=== PATIENT | male | born 1950 | race African-American/Black ===

== ENCOUNTER 2016-04-17 22:11 | Inpatient (IN) ==
[2016-04-17 23:10] LABS: Basophils # 0.1 K/mcL (0.0-0.2); Basophils % 0.7 %; Eosinophils # 0.4 K/mcL (0.0-0.6); Eosinophils % 5.7 %; Hematocrit 35.9 % (37.5-50.1); Hemoglobin 11.6 g/dL (12.9-16.9); Immature Granulocytes % 0.1 % (0-4); Immature Platelets 5.6 % (1.1-6.1); Lymphocytes # 1.3 K/mcL (0.6-4.6); Lymphocytes % 18.2 %; Mean Corpuscular HGB Conc 32.3 g/dL (31.6-35.5); Mean Corpuscular Hemoglobin 30.9 pg (28.0-33.3); Mean Corpuscular Volume 95.7 fL (83.0-100.0); Mean Platelet Volume 10.4 fL (9.4-12.4); Monocytes # 0.8 K/mcL (0.0-1.3); Monocytes % 11.2 %; Neutrophils # 4.5 K/mcL (1.6-8.9); Platelet Count 205 K/mcL (140-400); Red Blood Count 3.75 M/mcL (4.19-5.50); Red Cell Distribution Width 13.7 % (11.5-14.5); Segmented Neutrophils % 64.1 %
[2016-04-17 23:22] LABS: Calcium 7.7 mg/dL (8.6-10.8); Potassium 3.4 mEq/L (3.5-4.5)
--- NOTE | 2016-04-18 00:28 | Emergency Department Note ---
Disposition Clinical Impression: Dyspnea on exertion, End-stage renal disease, Elevated troponin I measurement Disposition: Admitted As Inpatient Condition: Fair Referrals: NO,PCP [Primary Care Provider] - Forms: ED Satisfaction Letter SOB HPI - General Chief Complaint: ED Shortness of Breath/Dyspnea Stated Complaint: NHAN w/exertion/hx afib/HD Time Seen by Provider: 04/17/16 23:15 Source: patient, EMS Limitations: no limitations Nursing Notes Reviewed: Yes Vital Signs Reviewed: Yes - History of Present Illness Pt Subjective Complaint: shortness of breath (with walking) Onset (ago): day(s) ("All weekend") Context: occurred during exertion ("just walking to the bathroom") Severity: moderate Consistency/Duration: intermittent Improves with: rest Worsens with: exertion Known history of: other (renal failure, CAD) Associated symptoms: Denies: chest pain, pain with inspiration, fever, cough, wheezing, sputum production, orthopnea, lower extremity pain, polyuria, polydipsia, parasthesias, palpitations, hemoptysis, diaphoresis, nausea/vomiting , syncope, abdominal pain, rash, sense of impending doom Treatment prior to arrival: none Cough present: Yes Cough Description: Voluntary, Dry Cough Frequency: Intermittent Sputum production: No Sputum Amount: None - Related Data Home oxygen amount: none Home Medications Medication Instructions Recorded Confirmed Allopurinol [Zyloprim] 100 mg PO DAILY 12/21/14 09/30/15 Atorvastatin [Lipitor] 10 mg PO HS 12/21/14 09/30/15 Chlorhexidine Gluconate [Peridex] 30 ml MM BID 12/21/14 09/30/15 Cinacalcet [Sensipar] 60 mg PO DAILY 12/21/14 09/30/15 Clopidogrel Bisulfate [Plavix] 75 mg PO DAILY 12/21/14 09/30/15 Escitalopram [Lexapro] 10 mg PO DAILY 12/21/14 09/30/15 Lisinopril [Zestril] 10 mg PO DAILY 12/21/14 09/30/15 Metoprolol XL (24 HR) Succ [Toprol 100 mg PO DAILY 12/21/14 09/30/15 XL] Nitroglycerin 0.4 mg SL AD PRN 12/21/14 09/30/15 Sevelamer [Renvela] 800 mg PO TIDWM 12/21/14 09/30/15 Sucralfate [Carafate] 10 ml PO BID 12/21/14 09/30/15 TraZODone 100 mg PO HS 12/21/14 09/30/15 Aspirin 325 mg PO DAILY 06/23/15 09/30/15 Previous Rx's Medication Instructions Recorded Gabapentin [Neurontin] 300 mg PO BID #60 capsule 06/25/15 HYDROcodone/Acet 5/325 mg [[place] 1 - 2 tab PO Q4HR PRN #40 tablet 06/25/15 5-325 mg] Pantoprazole Sodium [Protonix] 40 mg PO DAILY #0 06/25/15 Isosorbide MONOnitrate (24 HR) 30 mg PO DAILY #30 tab.er.24h 10/02/15 [Imdur] Allergies Allergy/AdvReac Type Severity Reaction Status Date / Time No Known Allergies Allergy Verified 04/17/16 22:16 All systems ED: reviewed and negative except as stated. Constitutional: Denies: fever, chills, weakness Cardiovascular: Reports: as per HPI, dyspnea on exertion. Denies: chest pain, palpitations, orthopnea, edema, syncope, paroxysmal nocturnal dyspnea Respiratory: Denies: cough, dyspnea, wheezes, hemoptysis, stridor, sputum production Gastrointestinal: Denies: nausea, vomiting, diarrhea Musculoskeletal: Denies: back pain, neck pain, joint swelling Integumentary: Denies: rash Neurological: Denies: headache, weakness, confusion Hematological/Lymphatic: Denies: easy bleeding, easy bruising Past Medical History - Past Medical History Attestation: Yes The following information was validated with the patient. Source: patient Medical history: Reports: arthritis, atrial fibrillation, cancer, cardiomyopathy , coronary artery disease, diabetes, dialysis, GERD, hyperlipidemia, hypertension, kidney stones, malignancy, myocardial infarction, renal disease, other Surgical history: Reports: angioplasty/stent, appendectomy, herniorrhaphy, prostatectomy Psychiatric history: Reports: no psych history - Social History Smoking Status: Never smoker Smokeless Tobacco Status: No Alcohol use: Reports: none Drug use: Reports: none Physical Exam - General Limitations: no limitations General appearance: alert, in no apparent distress - Head Head exam: atraumatic, normocephalic, normal inspection - Eye Eye exam: Present: normal appearance, PERRL. Absent: scleral icterus, conjunctival injection, periorbital swelling - ENT ENT exam: mucous membranes moist - Neck Neck exam: Present: normal inspection, full ROM, trachea midline - Chest Chest inspection: Present: normal inspection, symmetric chest wall rise - Respiratory Respiratory exam: Present: normal lung sounds bilaterally. Absent: respiratory distress, wheezes, stridor, accessory muscle use, prolonged expiratory phase - Cardiovascular Cardiovascular exam: Present: regular rate, normal rhythm - Extremities Exam Extremities exam: Present: normal inspection, full ROM, normal capillary refill. Absent: tenderness, pedal edema, calf tenderness - Back Exam Back exam: Present: normal inspection - Neurological Exam Neurological exam: Present: alert, oriented X3, CN II-XII intact - Psychiatric Psychiatric exam: Present: normal affect, normal mood - Skin Skin exam: Present: warm, dry, intact, normal color Course Vital Signs Temperature 98.1 F 04/17/16 22:16 Pulse Rate 78 04/17/16 22:16 Respiratory Rate 20 04/17/16 22:16 Blood Pressure 136/84 04/17/16 22:16 O2 Sat by Pulse Oximetry 100 04/17/16 22:16 Temperature 98.1 F 04/17/16 22:16 Pulse Rate 82 04/18/16 01:02 Respiratory Rate 18 04/18/16 01:02 Blood Pressure 135/96 04/18/16 01:02 O2 Sat by Pulse Oximetry 99 04/18/16 01:02 Oxygen Delivery Oxygen Delivery Nasal Cannula Shortness of Breath/Dyspnea - Medical Records Medical records reviewed: Yes I reviewed the patient's medical records. - Lab Data Lab results reviewed: Yes I reviewed the patient's lab results. Result diagrams: 04/17/16 23:04 04/17/16 23:04 Lab Results 04/17/16 04/17/16 04/17/16 Range/Units 23:04 23:04 23:04 WBC 7.0 (4.3-11.1) K/mcL RBC 3.75 L (4.19-5.50) M/mcL Hgb 11.6 L (12.9-16.9) g/dL Hct 35.9 L (37.5-50.1) % MCV 95.7 (83.0-100.0) fL MCH 30.9 (28.0-33.3) pg MCHC 32.3 (31.6-35.5) g/dL RDW 13.7 (11.5-14.5) % Plt Count 205 (140-400) K/mcL MPV 10.4 (9.4-12.4) fL Immature Gran % 0.1 (0-4) % Seg Neutrophils % 64.1 % Lymphocytes % 18.2 % Monocytes % 11.2 % Eosinophils % 5.7 % Basophils % 0.7 % Neutrophils # 4.5 (1.6-8.9) K/mcL Lymphocytes # 1.3 (0.6-4.6) K/mcL Monocytes # 0.8 (0.0-1.3) K/mcL Eosinophils # 0.4 (0.0-0.6) K/mcL Basophils # 0.1 (0.0-0.2) K/mcL Immature Plt Fraction 5.6 (1.1-6.1) % Sodium 140 (136-145) mEq/L Potassium 3.4 L (3.5-4.5) mEq/L Chloride 96 L (98-109) mEq/L Carbon Dioxide 30 H (19-29) mEq/L BUN 15 (8-26) mg/dL Creatinine 6.39 H (0.72-1.25) mg/dL Est GFR ( Amer) 11 L (> 60) Est GFR (Non-Af Amer) 9 L (> 60) BUN/Creatinine Ratio 2 L (6-26) Glucose 99 (70-99) mg/dL Calculated Osmolality 291 (280-300) Calcium 7.7 L (8.6-10.8) mg/dL Troponin I 0.22 H* (0-0.03) ng/mL B-Natriuretic Peptide (0-100) pg/mL 04/17/16 Range/Units 23:04 WBC (4.3-11.1) K/mcL RBC (4.19-5.50) M/mcL Hgb (12.9-16.9) g/dL Hct (37.5-50.1) % MCV (83.0-100.0) fL MCH (28.0-33.3) pg MCHC (31.6-35.5) g/dL RDW (11.5-14.5) % Plt Count (140-400) K/mcL MPV (9.4-12.4) fL Immature Gran % (0-4) % Seg Neutrophils % % Lymphocytes % % Monocytes % % Eosinophils % % Basophils % % Neutrophils # (1.6-8.9) K/mcL Lymphocytes # (0.6-4.6) K/mcL Monocytes # (0.0-1.3) K/mcL Eosinophils # (0.0-0.6) K/mcL Basophils # (0.0-0.2) K/mcL Immature Plt Fraction (1.1-6.1) % Sodium (136-145) mEq/L Potassium (3.5-4.5) mEq/L Chloride (98-109) mEq/L Carbon Dioxide (19-29) mEq/L BUN (8-26) mg/dL Creatinine (0.72-1.25) mg/dL Est GFR ( Amer) (> 60) Est GFR (Non-Af Amer) (> 60) BUN/Creatinine Ratio (6-26) Glucose (70-99) mg/dL Calculated Osmolality (280-300) Calcium (8.6-10.8) mg/dL Troponin I (0-0.03) ng/mL B-Natriuretic Peptide > 5000 H (0-100) pg/mL - Radiology Data Radiology results reviewed: Yes I reviewed the patient's radiology results. Chest X-Ray 04/17/16 22:20 IMPRESSION: Cardiomegaly and mild pulmonary vascular congestion, stable. D/ / Magdy Mcmahan MD / Magdy Mcmahan MD Interpreting Provider: Magdy Mcmahan MD - EKG Data EKG attestation: Yes I reviewed and interpreted this EKG. EKG shows normal: Reports: sinus rhythm Rate: Reports: normal Rhythm: Reports: PAC's Interpretation: Reports: unchanged when compared to prior tracing (date), nonspecific ST-T wave changes
[2016-04-18] MEDS ORDERED: Furosemide 40 MG/4 ML VIAL IVP ONE (03:13)
--- NOTE | 2016-04-18 04:09 | Event Note ---
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 Patient presents with Kishore on exertion. Patient is usually able to go shopping however for the past few days is been walking only 2 to 3 steps because of limiting shortness of breath. Patient is compliant with his dialysis. He dialyzed today. He does not know his dry weights. Patient with element of slight clinical overload. Patient mentioned that he still makes a little urine. I will give him a dose of IV Lasix. May need to decrease his dry weight. Patient denies any cough expectoration fevers chills. Patient denies any chest pain. Patient is having frequent PACs and PVCs. However he maintains sinus rhythm so far. Continue aspirin beta ramon. One dose of Lasix intravenously 40 mg. Patient is comfortable speaking in full sentences not requiring any oxygen. Patient of the recent halter monitor showing reruns of non-sustained VTach as well as sustained VTach. Ask cardiology surface for input given frequent atrial and ventricular arrhythmias. Patient is having elevated troponin. However is denying any active chest pain. Cardiology consultation.
--- NOTE | 2016-04-18 04:15 | Internal Med History&Physical ---
<Ayana,Lauren Mary - Last Filed: 04/18/16 05:10> Date of Encounter: 04/18/16 Time of Encounter: 04:04 Assessment and Plan (1) Dyspnea Current visit: No Status: Resolved likely secondary to fluid overload from ESRD CXR shows cardiac enlargement and pulmonary vascular congestion will give lasix challenge with 40 BID and monitor UOP PO K Qualifiers: Dyspnea type: dyspnea on exertion Qualified Code(s): R06.09 - Other forms of dyspnea (2) Hypokalemia Current visit: Yes Status: Acute PO K recheck K (3) Hypochloremia Current visit: Yes Status: Acute PO KCL recheck (4) Elevated troponin I measurement Current visit: Yes Status: Chronic Troponin at .22 chronically elevated likely secondary to ESRD will continue to trend (5) End-stage renal disease Current visit: Yes Status: Chronic on dialysis M/W/F well compliant lasix q12h and monitor UOP electrolyte replacement consider nephro consult (6) HTN (hypertension) Current visit: No Status: Chronic Qualifiers: Hypertension type: essential hypertension Qualified Code(s): I10 - Essential (primary) hypertension (7) Afib Current visit: Yes Status: Acute cardiac monitoring Qualifiers: Atrial fibrillation type: paroxysmal Qualified Code(s): I48.0 - Paroxysmal atrial fibrillation (8) CHF (congestive heart failure) Current visit: No Status: Chronic troponin .22 BNP>5000 consider cardiac consult Qualifiers: Congestive heart failure type: systolic Congestive heart failure chronicity : chronic Qualified Code(s): I50.22 - Chronic systolic (congestive) heart failure Internal Medicine - H&P: HPI Chief complaint: dyspnea Admitted From: Emergency Dept Plans for Post Hospital Care: Home History of present illness: Mr. Manzano is a 65 year old male c/o dyspnea. Pt with PMHx ESRD on dialysis M/W/F , CHF, afib, CAD, DM HTN Pt states shortness of breath started three days ago, made worse with exertion improved with rest and is accompanied by a dry nonproductive cough Pt states that he can only walk a few steps and then starts getting short of breath and needs to sit down. He states this is new for him and has progressively gotten worse over the past three days. Pt denies headache, change in vision, heart palpitation, CP, Abd pain, N/V/D Past Med Surg Social Fam HX - Past Medical History Medical history: arthritis, atrial fibrillation, cancer, cardiomyopathy, coronary artery disease, diabetes, dialysis, GERD, hyperlipidemia, hypertension , kidney stones, malignancy, myocardial infarction, renal disease, other Psychiatric history: no psych history - Past Surgical History Surgical History: angioplasty/stent, appendectomy, herniorrhaphy, prostatectomy - Social History Smoking Status: Never smoker Smokeless Tobacco Status: No Alcohol use: none Drug use: none - Family History Mother History Unknown: Yes Adopted: No Family Member Ethnicity: Non- Living Status: Hx Family Cardiac Disorders: No Hx Family Respiratory Disorders: No Hx Family Cancer: No Hx Family GI Disorders: No Hx Family Endocrine Disorder: No Hx Family Neuromuscular Disorders: No Hx Family Neurologic Disorders: No Hx Family HEENT Disorders: No Hx Family Autoimmune Disorders: No Internal Medicine - H&P: Meds Allopurinol [Zyloprim] 100 mg PO DAILY 12/21/14 [History] Atorvastatin [Lipitor] 10 mg PO HS 12/21/14 [History] Chlorhexidine Gluconate [Peridex] 30 ml MM BID 12/21/14 [History] Cinacalcet [Sensipar] 60 mg PO DAILY 12/21/14 [History] Clopidogrel Bisulfate [Plavix] 75 mg PO DAILY 12/21/14 [History] Escitalopram [Lexapro] 10 mg PO DAILY 12/21/14 [History] Lisinopril [Zestril] 10 mg PO DAILY 12/21/14 [History] Metoprolol XL (24 HR) Succ [Toprol XL] 100 mg PO DAILY 12/21/14 [History] Nitroglycerin 0.4 mg SL AD PRN 12/21/14 [History] Sevelamer [Renvela] 800 mg PO TIDWM 12/21/14 [History] Sucralfate [Carafate] 10 ml PO BID 12/21/14 [History] TraZODone 100 mg PO HS 12/21/14 [History] Aspirin 325 mg PO DAILY 06/23/15 [History] Gabapentin [Neurontin] 300 mg PO BID #60 capsule 06/25/15 [Rx] HYDROcodone/Acet 5/325 mg [[place] 5-325 mg] 1 - 2 tab PO Q4HR PRN #40 tablet [Rx] Pantoprazole Sodium [Protonix] 40 mg PO DAILY #0 06/25/15 [Rx] Isosorbide MONOnitrate (24 HR) [Imdur] 30 mg PO DAILY #30 tab.er.24h 10/02/15 [ Rx] Allergies No Known Allergies Allergy (Verified 04/17/16 22:16) All Systems PM: A 10-system review of systems was performed and is negative for pertinent findings except as documented above in the HPI. - Constitutional Constitutional: no chills, no fever(s), no night sweats - EENT Eyes: no blurry vision, no change in vision, no pain, no photophobia Ears: no decreased hearing, no tinnitus - Cardiovascular Cardiovascular ROS IM: dyspnea on exertion, edema, no chest pain, no diaphoresis , no lightheadedness, no palpitations - Respiratory Respiratory: cough, no hemoptysis, no wheezing, no excessive phlegm production - Gastrointestinal Gastrointestinal: no abdominal pain, no nausea, no vomiting - Musculoskeletal Musculoskeletal ROS IM: no numbness, no tingling - Neurological Neurological ROS: no dizziness, no headache(s), no tingling - Constitutional Vitals: Temp Pulse Resp BP Pulse Ox 98.4 F 100 18 148/94 96 04/18/16 02:55 04/18/16 02:55 04/18/16 02:55 04/18/16 02:55 04/18/16 02:55 General appearance: Present: A&O X 3, no acute distress - Head Head exam: Present: atraumatic, normocephalic - Eye Eye exam: Present: EOMI - ENT ENT exam: Present: mucous membranes moist - Neck Neck exam general surgery: Present: full ROM, trachea midline - Respiratory Respiratory exam: Present: decreased breath sounds (b/l bases) - Cardiovascular Cardiovascular exam: Present: irregular rhythm - GI/Abdominal GI/Abdominal exam: Present: normal bowel sounds, soft, no peritoneal signs - Extremities Exam Extremities exam: Present: pedal edema (B/L LE 2+ pitting edema), warm - Incison Incision: Present: clean and dry (L forearm fistula with good thrill), intact - Neurological Exam Neurological exam: Present: CN II-XII intact, oriented X3, no focal deficits - Psychiatric Psychiatric exam: Present: normal affect, normal mood Internal Med - H&P Results - Labs CBC & Chem 7: 04/17/16 23:04 04/17/16 23:04 <Juan R Perez R - Last Filed: 04/18/16 06:02> Date of Encounter: 04/18/16 Assessment and Plan (1) Elevated troponin I measurement Current visit: Yes Status: Chronic (2) End-stage renal disease Current visit: Yes Status: Chronic Internal Medicine - H&P: HPI History of present illness: Mr. Manzano is a 65 year old male All Systems PM: A 10-system review of systems was performed and is negative for pertinent findings except as documented above in the HPI. - Constitutional Vitals: Temp Pulse Resp BP Pulse Ox 98.4 F 100 18 148/94 96 04/18/16 02:55 04/18/16 02:55 04/18/16 02:55 04/18/16 02:55 04/18/16 02:55 Internal Med - H&P Results - Labs CBC & Chem 7: 04/17/16 23:04 04/17/16 23:04
[2016-04-18] MEDS ORDERED: Furosemide 40 MG/4 ML VIAL IVP SCH ×2 (09:00→17:00)
--- NOTE | 2016-04-18 10:08 | Event Note ---
<Debora Broussard - Last Filed: 04/18/16 16:09> Date of Encounter: 04/18/16 Time of Encounter: 09:56 S: Patient seen and examined at bedside. He states that he is fatigued, but that his SOB has improved. Denies F/C, CHAVES, dizziness, cp, abdominal pain, N/V/D. 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 He is a patient of Dr. Medeiros and has dialysis M/W/F. He had dialysis yesterday. He states he still makes urine, approximately 3 times daily. States no UOP as of 1130. Patient requesting rehab placement at [facility]. O: WD/WN 65 y/o male who is alert and oriented in NAD. NC/AT, RRR w/o MRG, pulses 2+ b/l UE/LE, Lungs CTAB, abdomen soft, non-tender, no distention, normoactive bowel sounds, no edema. A/P: 1. ESRD: Patient has ESRD with M/W/F dialysis with Dr. Medeiros. Had dialysis yesterday Plan: -Consult to nephrology, Dr. Medeiros notified and will see tomorrow for HD. 2. Dyspnea Patient presented with dyspnea after HD. Pulmonary congestion on XR. Patient given IV lasix, SOB improved today. Had holter monitor in February, Dr. Vincent increased toprol. 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 It is possible that the dyspnea is secondary to a pulmonary process such as COPD, Pulmonary fibrosis, etc. May be cardiac vs renal in nature as well. Patient was referred to pulm in the past, but missed his appointment. Will refer again and discharge and patient would benefit from outpatient PFTs. Holter Monitor Impression: 1.) Sinus rhythm with intermittent ectopic atrial rhythm. Average heart rate was 76 bpm. 2.) Frequent PVCs (340 per hour, 7.5% of total heart beats). 3.) Frequent runs of non-sustained ventricular tachycardia. There were a total of 48 runs of NSVT. The longest run was 16 beats. 4.) Occasional PACs. 5.) Frequent runs of SVT consistent with atrial tachycardia. There were a total of 22 runs of atrial tachycardia. The longest run was 15 beats. 6.) There was 1 short pause (2 seconds long) noted with a single non- conducted p-wave. This occurred at 00:17am, likely while sleeping. 7.) Diary of symptoms was not returned. Plan: -CT chest w/o contrast today -Carol -Will get pre and post neb peak flow readings. -Continue lasix and montor I/Os, daily weights 3. Hypokalemia May be secondary to ESRD, post dialysis. Was given oral K replacement Plan: -Will repeat BMP today and in the AM <Tashi Curran - Last Filed: 04/18/16 17:09> Mr. Manzano was admitted earlier this AM with dyspnea. He has multiple prior admissions for similar complaints. Plan as outlined above. He is resting comfortably at this time.
[2016-04-18] MEDS ORDERED: *HR* HYDROcodone/Acet 5/325 mg TABLET PO PRN (12:11)
[2016-04-18] MEDS ORDERED: Nitroglycerin 0.4 MG TAB.SUBL SL PRN (12:11)
[2016-04-18] MEDS: Aspirin 325 MG TABLET PO SCH (12:51)
[2016-04-18] MEDS: Isosorbide MONOnitrate (24 HR) 30 MG TAB.ER.24H PO SCH (12:51)
[2016-04-18] MEDS: Metoprolol XL (24 HR) Succ 50 MG TAB.ER.24H PO SCH (12:51)
--- NOTE | 2016-04-18 15:51 | Electrocardiograph Report ---
[place] [id number] Test Date: 2016-04-17 Pat Name: Dexter Manzano Department: [id number] Room: 2A34 Gender: M Policy Service Coordinator: : 1950 Requested By: Hilario Torres Order Number: [id number] Reading MD: Scarlet Mejias Measurements Intervals [place] Rate: 87 P: CT: 0 QRS: -8 QRSD: 90 T: 107 QT: 438 QTc: 482 Interpretive Statements ATRIAL FIBRILLATION WITH ABERRANT CONDUCTION OR VENTRICULAR PREMATURE COMPLEXES NONSPECIFIC T-WAVE ABNORMALITY PROLONGED QT INTERVAL Electronically Signed On 04-18-2016 15:50:09 EDT by Scarlet Mejias
[2016-04-18] MEDS: Ipratropium/Albuterol Neb 3 ML IH SCH ×2 (16:21→20:38)
[2016-04-18] MEDS: Sucralfate 1 GM TABLET PO SCH (16:58)
[2016-04-18] MEDS: *HR* Heparin 5,000 UNIT/ML VIAL SQ SCH ×2 (16:58→21:25)
[2016-04-18 18:00] LABS: Calcium 7.3 mg/dL (8.6-10.8); Potassium 3.9 mEq/L (3.5-4.5)
[2016-04-18] MEDS ORDERED: Gabapentin 300 MG CAPSULE PO SCH (21:00)
[2016-04-18] MEDS ORDERED: traZODone 50 MG TABLET PO SCH (21:00)
[2016-04-18] MEDS: Chlorhexidine Rinse 15 ML MOUTHWASH MM SCH (21:21)
[2016-04-18] MEDS: Gabapentin 300 MG CAPSULE PO SCH (21:25)
[2016-04-19] MEDS: Ipratropium/Albuterol Neb 3 ML IH SCH ×5 (00:28→15:41)
[2016-04-19 06:51] LABS: Basophils # 0.1 K/mcL (0.0-0.2); Basophils % 0.8 %; Eosinophils # 0.4 K/mcL (0.0-0.6); Eosinophils % 6.8 %; Hematocrit 32.6 % (37.5-50.1); Hemoglobin 10.5 g/dL (12.9-16.9); Immature Granulocytes % 0.3 % (0-4); Lymphocytes # 1.5 K/mcL (0.6-4.6); Lymphocytes % 25.2 %; Mean Corpuscular HGB Conc 32.2 g/dL (31.6-35.5); Mean Corpuscular Hemoglobin 31.7 pg (28.0-33.3); Mean Corpuscular Volume 98.5 fL (83.0-100.0); Mean Platelet Volume 10.8 fL (9.4-12.4); Monocytes # 0.7 K/mcL (0.0-1.3); Monocytes % 11.7 %; Neutrophils # 3.3 K/mcL (1.6-8.9); Platelet Count 173 K/mcL (140-400); Red Blood Count 3.31 M/mcL (4.19-5.50); Red Cell Distribution Width 13.8 % (11.5-14.5); Segmented Neutrophils % 55.2 %
[2016-04-19 07:07] LABS: Calcium 6.7 mg/dL (8.6-10.8); Potassium 3.9 mEq/L (3.5-4.5)
[2016-04-19] MEDS: Sucralfate 1 GM TABLET PO SCH (08:42)
[2016-04-19] MEDS: Gabapentin 300 MG CAPSULE PO SCH (08:43)
[2016-04-19] MEDS: *HR* Heparin 5,000 UNIT/ML VIAL SQ SCH (08:48)
[2016-04-19] MEDS: Chlorhexidine Rinse 15 ML MOUTHWASH MM SCH (09:09)
[2016-04-19] MEDS ORDERED: 0.9 % Sodium Chloride 250 ML IV PRN (09:49)
[2016-04-19] MEDS ORDERED: 0.9 % Sodium Chloride 1,000 ML PRIME SCH (10:00)
[2016-04-19] MEDS ORDERED: 0.9 % Sodium Chloride 2,000 ML ONE (10:06)
--- NOTE | 2016-04-19 10:09 | Internal Med Progress Note ---
<Debora Broussard - Last Filed: 04/19/16 10:23> Date of Encounter: 04/19/16 Time of Encounter: 10:06 - Assessment and plan (1) Pulmonary edema Status: Acute Assessment and plan: Patient presented with dyspnea after HD. Pulmonary congestion on XR. Patient given IV lasix, SOB improved. Had holter monitor in February, Dr. Vincent increased toprol to 100mg daily at that time. 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 Chest CT shows no pulmonary fibrosis. Patient was referred to pulm in the past, but missed his appointment. Will refer again and discharge and patient would benefit from outpatient PFTs. Plan: -Continue duonebs, as he states that they are improving his breathing. -Continue to monitor I/Os, daily weights -Discontinue lasix. Qualifiers: Chronicity: acute Qualified Code(s): J81.0 - Acute pulmonary edema (2) ESRD (end stage renal disease) on dialysis Status: Acute Assessment and plan: Patient has ESRD with M/W/F dialysis with Dr. Medeiros. Plan: -Consult to nephrology, Dr. Medeiros notified -Patient will have HD today. (3) CAD (coronary artery disease) Status: Chronic Qualifiers: Coronary Disease-Associated Artery/Lesion type: [place] artery [place] vs. transplanted heart: [place] heart Associated angina: with unstable angina Qualified Code(s): I25.110 - Atherosclerotic heart disease of [place] coronary artery with unstable angina pectoris (4) HTN (hypertension) Status: Chronic Assessment and plan: continue home meds Qualifiers: Hypertension type: essential hypertension Qualified Code(s): I10 - Essential (primary) hypertension (5) Hypokalemia Status: Resolved Assessment and plan: Patient is a dialysis patient. Was given oral K on admission, potassium improved to 3.9 today. Patient gets dialysis today. (6) PAF (paroxysmal atrial fibrillation) Status: Chronic (7) DVT prophylaxis Status: Acute Assessment and plan: Heparin SQ - Subjective Interval history: Patient seen and examined at bedside. His SOB has improved. He states he had an episode of diarrhea/loose stool yesterday and feels better after. Denies F/C, CHAVES, dizziness, cp, abdominal pain, N/V/D. 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 He is a patient of Dr. Medeiros and has dialysis M/W/F. He will have dialysis today Patient requesting rehab placement at [facility]. - Constitutional Vitals: Temp Pulse Resp BP Pulse Ox 97.8 F 65 16 136/84 96 04/19/16 08:00 04/19/16 08:00 04/19/16 08:00 04/19/16 08:00 04/19/16 08:00 General appearance: Present: A&O X 3, pleasant, no acute distress, answers questions appropriately - Head Head exam: Present: atraumatic, normocephalic - Eye Eye exam: Present: EOMI, PERRL, conjuntiva pink, sclera anicteric - ENT ENT exam: Present: mucous membranes dry - Neck Neck exam general surgery: Present: supple, trachea midline. Absent: lymphadenopathy - Respiratory Respiratory exam: Present: CTAB. Absent: accessory muscle use, rales, rhonchi, wheezes - Cardiovascular Cardiovascular exam: Present: RRR, +S1, +S2. Absent: diastolic murmur, gallop, rubs, systolic murmur - GI/Abdominal GI/Abdominal exam: Present: normal bowel sounds, soft, no peritoneal signs. Absent: distended, tenderness - Extremities Exam Extremities exam: Present: pedal edema (trace L>R), warm, radial pulses palpable and symetrical. Absent: calf tenderness, cyanotic - Neurological Exam Neurological exam: Present: alert, oriented X3, no focal deficits. Absent: motor sensory deficit, facial droop, speech deficit - Psychiatric Psychiatric exam: Present: normal affect, normal mood - Skin Skin exam: Present: dry, intact, warm. Absent: diaphoretic, rash Internal Medicine: Result - Labs CBC & Chem 7: 04/19/16 06:31 04/19/16 06:31 - Diagnostic Studies CT scan - chest Additional comments: Chest CT 04/18/16 15:38 IMPRESSION: Cardiomegaly. Heavy atherosclerotic calcification of the coronary arteries. Discoid atelectasis at the left lung base. No acute pulmonary disease. Mildly prominent mediastinal lymph nodes, likely reactive. D/ / Jame Beltran MD / Jame Beltran MD Interpreting Provider: Jame Beltran MD Consult Discharge Plan - Plan Instructions: Hemodialysis (GEN), End-Stage Kidney Disease (GEN) Additional Instructions: Please follow up with your primary care provider within 5-7 days. Referrals: Dylon Medeiros, [Non-Partnered Physician] - (Patient will follow up with doctor during HD days on Mondays, Wednesdays and Fridays) <Tashi Curran - Last Filed: 04/19/16 18:22> - Assessment and plan (1) Pulmonary edema Status: Acute Qualifiers: Chronicity: acute Qualified Code(s): J81.0 - Acute pulmonary edema (2) CAD (coronary artery disease) Status: Chronic Qualifiers: Coronary Disease-Associated Artery/Lesion type: [place] artery [place] vs. transplanted heart: [place] heart Associated angina: without angina Qualified Code(s): I25.10 - Atherosclerotic heart disease of [place] coronary artery without angina pectoris (3) HTN (hypertension) Status: Chronic Qualifiers: Hypertension type: essential hypertension Qualified Code(s): I10 - Essential (primary) hypertension (4) Diabetes mellitus Status: Acute Qualifiers: Diabetes mellitus type: type 2 Diabetes mellitus complication status: with kidney complications Diabetes mellitus complication detail: with chronic kidney disease Diabetes mellitus joint terminal attack controller insulin use: without skilled nursing use Chronic kidney disease stage: on chronic dialysis Qualified Code(s): E11.22 - Type 2 diabetes mellitus with diabetic chronic kidney disease; N18.6 - End stage renal disease; Z99.2 - Dependence on renal dialysis (5) ESRD (end stage renal disease) on dialysis Status: Chronic (6) Hypokalemia Status: Resolved (7) PAF (paroxysmal atrial fibrillation) Status: Chronic - Constitutional Vitals: Temp Pulse Resp BP Pulse Ox 97.5 F L 65 18 103/68 100 04/19/16 13:27 04/19/16 08:00 04/19/16 15:41 04/19/16 13:27 04/19/16 15:41 Internal Medicine: Result - Labs CBC & Chem 7: 04/19/16 06:31 04/19/16 06:31 - Attending Attestation Please see discharge summary of this date for attestation.
--- NOTE | 2016-04-19 10:30 | Nephrology Consult Note ---
Date of Encounter: 04/19/16 Time of Encounter: 09:50 History of Present Illness - Reason for Consult end stage renal disease - History of Present Illness A/P- ESRD. Fluid overload improved with IV Lasix. K+ 3.9. Will do HD today, keeping MWF schedule. Mr. Manzano is a 65 year old male with ESRD who dialyzes at [facility] on MWF. Last dialysis on Sunday. Other PMH- DM, HTN, CAD, Afib, CHF. Mr. Manzano states has had exertional SOB x 3 days, with a dry non productive cough. He has noted an increased to sit down to rest with minimal ambulation. He denied chest pain, heart palpitations, fever, abdominal pain, N/V/D. CXR-Cardiac enlargement and pulmonary vascular congestion, BNP > 5000, trop 0.22. Today Mr. Manzano is sitting on edge of bed, states breathing much easier since "given Lasix." Past Med Surg Social Fam HX - Past Medical History Medical history: arthritis, atrial fibrillation, cancer, cardiomyopathy, coronary artery disease, diabetes, dialysis, GERD, hyperlipidemia, hypertension , kidney stones, malignancy, myocardial infarction, renal disease, other Psychiatric history: no psych history - Past Surgical History Surgical History: angioplasty/stent, appendectomy, herniorrhaphy, prostatectomy - Social History Smoking Status: Never smoker Smokeless Tobacco Status: No Alcohol use: none Drug use: none - Family History Mother History Unknown: Yes Adopted: No Family Member Ethnicity: Non- Living Status: Hx Family Cardiac Disorders: No Hx Family Respiratory Disorders: No Hx Family Cancer: No Hx Family GI Disorders: No Hx Family Endocrine Disorder: No Hx Family Neuromuscular Disorders: No Hx Family Neurologic Disorders: No Hx Family HEENT Disorders: No Hx Family Autoimmune Disorders: No Medications and Allergies Allopurinol [Zyloprim] 100 mg PO DAILY 12/21/14 [History] Atorvastatin [Lipitor] 10 mg PO HS 12/21/14 [History] Chlorhexidine Gluconate [Peridex] 30 ml MM BID 12/21/14 [History] Cinacalcet [Sensipar] 60 mg PO DAILY 12/21/14 [History] Clopidogrel Bisulfate [Plavix] 75 mg PO DAILY 12/21/14 [History] Escitalopram [Lexapro] 10 mg PO DAILY 12/21/14 [History] Lisinopril [Zestril] 10 mg PO DAILY 12/21/14 [History] Metoprolol XL (24 HR) Succ [Toprol XL] 100 mg PO DAILY 12/21/14 [History] Nitroglycerin 0.4 mg SL AD PRN 12/21/14 [History] Sevelamer [Renvela] 800 mg PO TIDWM 12/21/14 [History] Sucralfate [Carafate] 10 ml PO BID 12/21/14 [History] TraZODone 100 mg PO HS 12/21/14 [History] Aspirin 325 mg PO DAILY 06/23/15 [History] Gabapentin [Neurontin] 300 mg PO BID #60 capsule 06/25/15 [Rx] Pantoprazole Sodium [Protonix] 40 mg PO DAILY #0 06/25/15 [Rx] Isosorbide MONOnitrate (24 HR) [Imdur] 30 mg PO DAILY #30 tab.er.24h 10/02/15 [ Rx] HYDROcodone/Acet 5/325 mg [[place] 5-325 mg] 1 tab PO Q4H PRN 04/18/16 [History] Allergies No Known Allergies Allergy (Verified 04/18/16 07:52) Exam - Vital Signs Vital signs: Initial Vital Signs Temp Pulse Resp BP Pulse Ox 98.1 F 78 20 136/84 100 04/17/16 22:16 04/17/16 22:16 04/17/16 22:16 04/17/16 22:16 04/17/16 22:16 - General Appearance General appearance: well-developed, well-nourished, appears started age EENT: mucous membranes moist Neck: no JVD Respiratory: clear Cardiology: no edema, regular rhythm, irregular rhythm Gastrointestinal: normoactive bowel sounds, no tenderness Integumentary: warm and dry Neurologic: alert and oriented x3 Psychiatric: mood/affect appropriate, cooperative Results - Lab Results 04/19/16 06:31 04/19/16 06:31 Most recent lab results Calcium 6.7 mg/dL (8.6-10.8) L 04/19/16 06:31 Consult Discharge Plan - Plan Referrals: NO,PCP [Primary Care Provider] -
--- NOTE | 2016-04-19 12:48 | Discharge Summary ---
<Debora Broussard - Last Filed: 04/19/16 13:22> Date of Encounter: 04/19/16 Time of Encounter: 12:45 - Discharge Diagnosis (1) Pulmonary edema Priority: Primary Status: Acute Qualifiers: Chronicity: acute Qualified Code(s): J81.0 - Acute pulmonary edema (2) ESRD (end stage renal disease) on dialysis Priority: Primary Status: Chronic (3) CAD (coronary artery disease) Priority: Secondary Status: Chronic Qualifiers: Coronary Disease-Associated Artery/Lesion type: [place] artery [place] vs. transplanted heart: [place] heart Associated angina: with unstable angina Qualified Code(s): I25.110 - Atherosclerotic heart disease of [place] coronary artery with unstable angina pectoris (4) HTN (hypertension) Priority: Secondary Status: Chronic Qualifiers: Hypertension type: essential hypertension Qualified Code(s): I10 - Essential (primary) hypertension (5) Hypokalemia Priority: Primary Status: Resolved (6) PAF (paroxysmal atrial fibrillation) Priority: Secondary Status: Chronic (7) DVT prophylaxis Priority: Primary Status: Acute - Discharge Medications Home Medications: Allopurinol [Zyloprim] 100 mg PO DAILY 12/21/14 [History] Atorvastatin [Lipitor] 10 mg PO HS 12/21/14 [History] Chlorhexidine Gluconate [Peridex] 30 ml MM BID 12/21/14 [History] Cinacalcet [Sensipar] 60 mg PO DAILY 12/21/14 [History] Clopidogrel Bisulfate [Plavix] 75 mg PO DAILY 12/21/14 [History] Escitalopram [Lexapro] 10 mg PO DAILY 12/21/14 [History] Lisinopril [Zestril] 10 mg PO DAILY 12/21/14 [History] Metoprolol XL (24 HR) Succ [Toprol XL] 100 mg PO DAILY 12/21/14 [History] Nitroglycerin 0.4 mg SL AD PRN 12/21/14 [History] Sevelamer [Renvela] 800 mg PO TIDWM 12/21/14 [History] Sucralfate [Carafate] 10 ml PO BID 12/21/14 [History] TraZODone 100 mg PO HS 12/21/14 [History] Aspirin 325 mg PO DAILY 06/23/15 [History] Gabapentin [Neurontin] 300 mg PO BID #60 capsule 06/25/15 [Rx] Pantoprazole Sodium [Protonix] 40 mg PO DAILY #0 06/25/15 [Rx] Isosorbide MONOnitrate (24 HR) [Imdur] 30 mg PO DAILY #30 tab.er.24h 10/02/15 [ Rx] HYDROcodone/Acet 5/325 mg [[place] 5-325 mg] 1 tab PO Q4H PRN 04/18/16 [History] Allergies/Adverse Reactions: Allergies No Known Allergies Allergy (Verified 04/18/16 07:52) Date of admission: 04/19/16 09:23 Primary care physician: PCP NO Consults: 04/19/16 10:00 Consult to Dialysis [CONS] ONCE Discharging clinician: Tashi Curran Anticipated date of discharge: 04/19/16 - Patient Status Disposition: Home Health Service Condition: Good Functional capacity at discharge: uses cane/walker Overall status at discharge: patient is back to baseline - Discharge Instructions Instructions: Hemodialysis (GEN), End-Stage Kidney Disease (GEN) Follow Up With: Dylon Medeiros DO [Non-Partnered Physician] - (Patient will follow up with doctor during HD days on Mondays, Wednesdays and Fridays) Additional Instructions: Please follow up with your primary care provider within 5-7 days. - Diet and Activity Activity: resume usual activities as tolerated Diet: other (Renal Diet) Hospital course: Mr. Manzano is a 65 year old male with PMH of ESRD on HD M/W/F, HTN, PAF, CHF, CAD who presented to the ED 04/17 complaining of dyspnea after his dialysis session on 04/17. He has ESRD, on dialysis for 12 years secondary to uranium toxicity from working at [employer] in the . He is a patient of Dr. Medeiros and has dialysis M/W/F.The CXR revealed pulmonary congestion. Patient was given IV lasix, which improved his symptoms. - Time Spent with Patient Total time spent providing and/or coordinating discharge services: - Constitutional Vitals: Temp Pulse Resp BP Pulse Ox 98 F 65 20 112/65 96 04/19/16 10:15 04/19/16 08:00 04/19/16 10:15 04/19/16 12:00 04/19/16 08:00 General appearance: Present: A&O X 3, pleasant, no acute distress, answers questions appropriately - Head Head exam: Present: atraumatic, normocephalic - Eye Eye exam: Present: EOMI, PERRL, conjuntiva pink, sclera anicteric - Neck Neck exam general surgery: Present: supple, trachea midline. Absent: lymphadenopathy - Respiratory Respiratory exam: Present: CTAB. Absent: accessory muscle use, rales, rhonchi, wheezes - Cardiovascular Cardiovascular exam: Present: RRR, +S1, +S2. Absent: diastolic murmur, gallop, rubs, systolic murmur - GI/Abdominal GI/Abdominal exam: Present: normal bowel sounds, soft, no peritoneal signs. Absent: distended, tenderness - Extremities Exam Extremities exam: Present: pedal edema (trace, L>R), warm, radial pulses palpable and symetrical. Absent: calf tenderness, cyanotic - Neurological Exam Neurological exam: Present: oriented X3, no focal deficits. Absent: facial droop, speech deficit - Psychiatric Psychiatric exam: Present: normal affect, normal mood - Skin Skin exam: Present: dry, intact, warm. Absent: diaphoretic, erythema, rash <Tashi Curran - Last Filed: 04/19/16 18:20> - Discharge Diagnosis (1) Pulmonary edema Status: Acute Qualifiers: Chronicity: acute Qualified Code(s): J81.0 - Acute pulmonary edema (2) CAD (coronary artery disease) Status: Chronic Qualifiers: Coronary Disease-Associated Artery/Lesion type: [place] artery [place] vs. transplanted heart: [place] heart Associated angina: without angina Qualified Code(s): I25.10 - Atherosclerotic heart disease of [place] coronary artery without angina pectoris (3) HTN (hypertension) Status: Chronic Qualifiers: Hypertension type: essential hypertension Qualified Code(s): I10 - Essential (primary) hypertension (4) Diabetes mellitus Priority: Secondary Status: Acute Qualifiers: Diabetes mellitus type: type 2 Diabetes mellitus complication status: with kidney complications Diabetes mellitus complication detail: with chronic kidney disease Diabetes mellitus prison insulin use: without exterminator termite use Chronic kidney disease stage: on chronic dialysis Qualified Code(s): E11.22 - Type 2 diabetes mellitus with diabetic chronic kidney disease; N18.6 - End stage renal disease; Z99.2 - Dependence on renal dialysis (5) ESRD (end stage renal disease) on dialysis Status: Chronic (6) Hypokalemia Status: Resolved (7) PAF (paroxysmal atrial fibrillation) Status: Chronic Date of admission: 04/19/16 09:23 Primary care physician: PCP NO Consults: 04/19/16 10:00 Consult to Dialysis [CONS] ONCE Hospital course: Mr. Manzano is a 65 year old male - Time Spent with Patient Total time spent providing and/or coordinating discharge services: 28min - Constitutional Vitals: Temp Pulse Resp BP Pulse Ox 97.5 F L 65 18 103/68 100 04/19/16 13:27 04/19/16 08:00 04/19/16 15:41 04/19/16 13:27 04/19/16 15:41 - Attending Attestation I examined this patient and my medical decision-making was reviewed with the Resident Physician on 04/19/16. I agree with the documented findings, disposition and treatment plan as described except to the extent set forth below. Mr. Manzano is doing better today. He had dialysis and is less dyspneic. He is afebrile and BP is stable. Exam Alert. Comfortable Heart reg No wheeze Plan D/C today Follow up with PCP
--- NOTE | 2016-04-19 12:55 | Physician Discharge Referral ---
<Debora Broussard - Last Filed: 04/19/16 12:53> Home Health/Hosp Referral Info Transfer to: Home Health Attending Provider: Tashi Curran DO Provider in Charge Post Discharge: PCP - Diagnosis (1) Pulmonary edema Status: Acute (2) ESRD (end stage renal disease) on dialysis Status: Chronic (3) CAD (coronary artery disease) Status: Chronic (4) HTN (hypertension) Status: Chronic (5) Hypokalemia Status: Resolved (6) PAF (paroxysmal atrial fibrillation) Status: Chronic (7) DVT prophylaxis Status: Acute - Respiratory Orders Smoking Cessation: Smoking cessation has been advised. For more information, call the [place] Tobacco Quit Line at 5-581-OKUC-NOW. - Diet/Nutrition Diet/Nutrition Orders: Renal - Activity Activity Orders: Up ad vickie - Services Needed Following services are medically necessary services: Physical Therapy - Transfer Medications Home Medications: Allopurinol [Zyloprim] 100 mg PO DAILY 12/21/14 [History] Atorvastatin [Lipitor] 10 mg PO HS 12/21/14 [History] Chlorhexidine Gluconate [Peridex] 30 ml MM BID 12/21/14 [History] Cinacalcet [Sensipar] 60 mg PO DAILY 12/21/14 [History] Clopidogrel Bisulfate [Plavix] 75 mg PO DAILY 12/21/14 [History] Escitalopram [Lexapro] 10 mg PO DAILY 12/21/14 [History] Lisinopril [Zestril] 10 mg PO DAILY 12/21/14 [History] Metoprolol XL (24 HR) Succ [Toprol XL] 100 mg PO DAILY 12/21/14 [History] Nitroglycerin 0.4 mg SL AD PRN 12/21/14 [History] Sevelamer [Renvela] 800 mg PO TIDWM 12/21/14 [History] Sucralfate [Carafate] 10 ml PO BID 12/21/14 [History] TraZODone 100 mg PO HS 12/21/14 [History] Aspirin 325 mg PO DAILY 06/23/15 [History] Gabapentin [Neurontin] 300 mg PO BID #60 capsule 06/25/15 [Rx] Pantoprazole Sodium [Protonix] 40 mg PO DAILY #0 06/25/15 [Rx] Isosorbide MONOnitrate (24 HR) [Imdur] 30 mg PO DAILY #30 tab.er.24h 10/02/15 [ Rx] HYDROcodone/Acet 5/325 mg [[place] 5-325 mg] 1 tab PO Q4H PRN 04/18/16 [History] Allergies/Adverse Reactions: Allergies No Known Allergies Allergy (Verified 04/18/16 07:52) Certification: Further, I certify that my clinical findings support that this patient is homebound (i.e. absences from home require considerable and taxing effort and are for medical reasons or latter day services or infrequently or short duration when for other reasons) because: Homebound Reason: Patient requires assistance of a person or device to safely leave home Attestation: My signature below is to certify that this patient is under my care and that I, or nurse practitioner, or a physician's museum assistant working with me, has a face-to -face encounter with this patient. <Tashi Curran - Last Filed: 04/19/16 15:09> - Respiratory Orders Smoking Cessation: Smoking cessation has been advised. For more information, call the [place] Tobacco Quit Line at 5-220-RLWU-NOW. - Services Needed Following services are medically necessary services: Nursing, Home Health Aide, Occupational Therapy Certification: Further, I certify that my clinical findings support that this patient is homebound (i.e. absences from home require considerable and taxing effort and are for medical reasons or latter day services or infrequently or short duration when for other reasons) because: Attestation: My signature below is to certify that this patient is under my care and that I, or nurse practitioner, or a physician's museum assistant working with me, has a face-to -face encounter with this patient.
[2016-04-19 13:29] VITALS: BP 103/68
[2016-04-19] MEDS: Aspirin 325 MG TABLET PO SCH (13:38)
[2016-04-19] MEDS: Isosorbide MONOnitrate (24 HR) 30 MG TAB.ER.24H PO SCH (13:39)
[2016-04-19] MEDS: Metoprolol XL (24 HR) Succ 50 MG TAB.ER.24H PO SCH (13:39)
== END 2016-04-19 16:25 | disposition home health service (06) | DRG 291 ==
LOC: EMEROO 22:11 → 2ANU 22:11 → SUATTDRO 04-18 01:39 → 2ANU 04-18 02:22
PROVIDERS: ADMIT Internal Medicine; ATTEND Internal Medicine

== ENCOUNTER 2016-06-05 10:13 | Inpatient (IN) ==
[~2016-06-05 10:13] MED LIST: *HR* Amiodarone Premix 150 MG/100 ML BAG IVPB ONE; *HR* Amiodarone Premix 360 MG/200 ML BAG IVC ONE
[2016-06-05] MEDS ORDERED: 0.9 % Sodium Chloride 1,000 ML ONE (10:22)
[2016-06-05] MEDS ORDERED: 0.9 % Sodium Chloride 1,000 ML IVC ONE (10:22)
[2016-06-05] MEDS ORDERED: *HR* Adenosine 6 MG/2 ML SYRINGE IVP ONE (10:23)
[2016-06-05] MEDS ORDERED: *HR* FentaNYL (PF) 100 MCG/2 ML VIAL IVP ONE (10:30)
[2016-06-05] MEDS ORDERED: *HR* Etomidate 20 MG/10 ML AMPUL IVP ONE ×2 (10:30→10:33)
[2016-06-05] MEDS ORDERED: *HR* FentaNYL (PF) 100 MCG/2 ML VIAL ONE (10:32)
[2016-06-05] MEDS ORDERED: Calcium Gluconate 3,000 MG in D5% in Water 250 ML IVPB ONE (10:34)
[2016-06-05 10:39] LABS: Basophils # 0.1 K/mcL (0.0-0.2); Basophils % 1.3 %; Eosinophils # 0.1 K/mcL (0.0-0.6); Eosinophils % 2.5 %; Hematocrit 44.3 % (37.5-50.1); Hemoglobin 14.2 g/dL (12.9-16.9); Immature Granulocytes % 0.4 % (0-4); Lymphocytes # 1.4 K/mcL (0.6-4.6); Lymphocytes % 24.6 %; Mean Corpuscular HGB Conc 32.1 g/dL (31.6-35.5); Mean Corpuscular Hemoglobin 29.6 pg (28.0-33.3); Mean Corpuscular Volume 92.5 fL (83.0-100.0); Monocytes # 0.5 K/mcL (0.0-1.3); Monocytes % 9.1 %; Neutrophils # 3.5 K/mcL (1.6-8.9); Platelet Count 147 K/mcL (140-400); Red Blood Count 4.79 M/mcL (4.19-5.50); Red Cell Distribution Width 14.8 % (11.5-14.5); Segmented Neutrophils % 62.1 %
[2016-06-05 10:51] LABS: Calcium 10.4 mg/dL (8.6-10.8); Potassium 4.2 mEq/L (3.5-4.5)
--- NOTE | 2016-06-05 10:52 | Emergency Department Note ---
Disposition Clinical Impression: ESRD (end stage renal disease), Atrial fibrillation with RVR Disposition: Admitted As Inpatient Condition: Fair Referrals: Dylon Medeiros DO [Primary Care Provider] - Forms: ED Satisfaction Letter General Adult HPI - General Chief complaint: ED Shortness of Breath/Dyspnea Stated complaint: SOB Time Seen by Provider: 06/05/16 10:22 Source: EMS Mode of arrival: EMS Limitations: no limitations, physical limitation Nursing Notes Reviewed: Yes Vital Signs Reviewed: Yes - History of Present Illness HPI Narrative: 65-year-old male history of hypertension, A. fib, chronic kidney disease ESRD ( Sunday). Presents for evaluation of shortness of breath. Notes it occurred just prior to arrival. Patient was at his dialysis appointment. She did not receive dialysis. Noted shortness of breath over the past 24 hours. Denies any chest pain. Denies a cough or fevers. No nausea or vomiting. No increasing fluid over the past weekend. Last dialysis was on Sunday. Patient's ESRD was related to uremia toxicity. Still produces small amounts of urine. Pain Scale: 0 - Related Data Home Medications Medication Instructions Recorded Confirmed Allopurinol [Zyloprim] 100 mg PO DAILY 12/21/14 06/05/16 Atorvastatin [Lipitor] 10 mg PO HS 12/21/14 06/05/16 Chlorhexidine Gluconate [Peridex] 30 ml MM BID 12/21/14 06/05/16 Cinacalcet [Sensipar] 60 mg PO DAILY 12/21/14 06/05/16 Clopidogrel Bisulfate [Plavix] 75 mg PO DAILY 12/21/14 06/05/16 Escitalopram [Lexapro] 10 mg PO DAILY 12/21/14 06/05/16 Lisinopril [Zestril] 10 mg PO DAILY 12/21/14 06/05/16 Metoprolol XL (24 HR) Succ [Toprol 100 mg PO DAILY 12/21/14 06/05/16 XL] Nitroglycerin 0.4 mg SL AD PRN 12/21/14 06/05/16 Sevelamer [Renvela] 800 mg PO TIDWM 12/21/14 06/05/16 Sucralfate [Carafate] 10 ml PO BID 12/21/14 06/05/16 TraZODone 100 mg PO HS 12/21/14 06/05/16 Aspirin 325 mg PO DAILY 06/23/15 06/05/16 HYDROcodone/Acet 5/325 mg [[place] 1 tab PO Q4H PRN 04/18/16 06/05/16 5-325 mg] Previous Rx's Medication Instructions Recorded Gabapentin [Neurontin] 300 mg PO BID #60 capsule 06/25/15 Pantoprazole Sodium [Protonix] 40 mg PO DAILY #0 06/25/15 Isosorbide MONOnitrate (24 HR) 30 mg PO DAILY #30 tab.er.24h 10/02/15 [Imdur] Allergies Allergy/AdvReac Type Severity Reaction Status Date / Time No Known Allergies Allergy Verified 06/05/16 10:14 All systems ED: reviewed and negative except as stated. Constitutional: Reports: as per HPI. Denies: fever Eyes: Reports: as per HPI ENT ED: Reports: as per HPI Cardiovascular: Reports: as per HPI, palpitations Respiratory: Reports: as per HPI, dyspnea. Denies: cough Gastrointestinal: Reports: as per HPI, nausea. Denies: vomiting Genitourinary: Reports: as per HPI Musculoskeletal: Reports: as per HPI Integumentary: Reports: as per HPI Neurological: Reports: as per HPI Psychiatric: Reports: as per HPI Endocrine: Reports: as per HPI Past Medical History - Past Medical History Medical history: Reports: arthritis, atrial fibrillation, cancer, cardiomyopathy , coronary artery disease, diabetes, dialysis, GERD, hyperlipidemia, hypertension, kidney stones, malignancy, myocardial infarction, renal disease, other Surgical history: Reports: angioplasty/stent, appendectomy, herniorrhaphy, prostatectomy Psychiatric history: Reports: no psych history - Social History Smoking Status: Never smoker Smokeless Tobacco Status: No Alcohol use: Reports: none Drug use: Reports: none Physical Exam - General Limitations: no limitations, physical limitation General appearance: alert, in distress - Head Head exam: atraumatic, normocephalic, normal inspection - Eye Eye exam: Present: normal appearance, PERRL, EOMI - ENT ENT exam: normal exam, mucous membranes moist - Neck Neck exam: Present: normal inspection, trachea midline - Chest Chest inspection: Present: normal inspection, symmetric chest wall rise - Respiratory Respiratory exam: Present: normal lung sounds bilaterally. Absent: respiratory distress - Cardiovascular Cardiovascular exam: Present: regular rate, normal rhythm - Abdominal Exam Abdominal exam: Present: soft, Non-Tender - Extremities Exam Extremities exam: Present: normal inspection. Absent: pedal edema - Expanded Upper Extremity Exam Forearm/Wrist exam: Present: other (Function left upper ext fistula) Course Course Narrative: Patient seen and examined initially upon arrival. Patient was noted be tachycardic with a heart rate in the 200s. Patient does have a history of A. fib RVR. Patient states he been taking his medication as directed. Patient did have a soft blood pressure. Attempted 6 mg of adenosine to see if there could be upon us for the rhythm. This did not slow the rhythm. While attempting to arrange electrical cardioversion, the patient spontaneously resolved and went into an A. fib rhythm with a more normal heart rate. Will get EKG, chest x-ray, basic lab work. - Reevaluation(s) Reevaluation #1: Seen and examined. No acute distress. Time: 12:21 - Consultations Consultation #1: Spoke with Johnathon, agrees with admission. Time: 11:27 Consultation #2: Spoke with cardiology. Time: 12:32 Vital Signs Temperature 97.7 F 06/05/16 10:16 Pulse Rate 225 06/05/16 10:16 Respiratory Rate 24 06/05/16 10:16 Blood Pressure 111/83 06/05/16 10:16 O2 Sat by Pulse Oximetry 99 06/05/16 10:16 Temperature 97.7 F 06/05/16 10:16 Pulse Rate 110 06/05/16 11:34 Respiratory Rate 14 06/05/16 11:00 Blood Pressure 113/82 06/05/16 11:34 O2 Sat by Pulse Oximetry 98 06/05/16 11:34 Oxygen Delivery Oxygen Delivery Nasal Cannula Medical Decision Making - [facility] Narrative Medical decision making narrative: 65-year-old male history of ESRD presents for evaluation of shortness of breath. Patient's shortness of breath etiology likely related to his persistent tachycardia. Patient's heart rate was noted to be in the 200s on presentation with blood pressure systolic in the 1 teens. Attempted adenosine 6 mg to slow the heart rate to visualize and it is A. fib or sinus. This was performed without success. While attempting to arrange for cardioversion the patient spontaneously resolved to more normal heart rate. Patient did receive calcium gluconate given his history of ESRD and possible cardiac membrane instability. Patient states he has been taking his medications as directed. Patient's heart rate has remained improved from initial evaluation. Spoke with nephrology who agrees with inpatient admission and monitoring. Possibly related to medication noncompliance. Also will speak with cardiology at the request of the hospitalist to follow along with this patient scared. Patient will be admitted to hospital service for further evaluation. Patient did have an elevated troponin in the setting of ESRD as well as tachycardia less likely true ACS. - Lab Data Lab results reviewed: Yes I reviewed the patient's lab results. Result diagrams: 06/05/16 10:20 06/05/16 10:20 Lab Results 06/05/16 06/05/16 06/05/16 Range/Units 10:20 10:20 10:20 WBC 5.6 (4.3-11.1) K/mcL RBC 4.79 (4.19-5.50) M/mcL Hgb 14.2 (12.9-16.9) g/dL Hct 44.3 (37.5-50.1) % MCV 92.5 (83.0-100.0) fL MCH 29.6 (28.0-33.3) pg MCHC 32.1 (31.6-35.5) g/dL RDW 14.8 H (11.5-14.5) % Plt Count 147 (140-400) K/mcL MPV 11.0 (9.4-12.4) fL Immature Gran % 0.4 (0-4) % Seg Neutrophils % 62.1 % Lymphocytes % 24.6 % Monocytes % 9.1 % Eosinophils % 2.5 % Basophils % 1.3 % Neutrophils # 3.5 (1.6-8.9) K/mcL Lymphocytes # 1.4 (0.6-4.6) K/mcL Monocytes # 0.5 (0.0-1.3) K/mcL Eosinophils # 0.1 (0.0-0.6) K/mcL Basophils # 0.1 (0.0-0.2) K/mcL Sodium 141 (136-145) mEq/L Potassium 4.2 (3.5-4.5) mEq/L Chloride 96 L (98-109) mEq/L Carbon Dioxide 21 (19-29) mEq/L BUN 23 (8-26) mg/dL Creatinine 9.85 H (0.72-1.25) mg/dL Est GFR ( Amer) 6 L (> 60) Est GFR (Non-Af Amer) 5 L (> 60) BUN/Creatinine Ratio 2 L (6-26) Glucose 94 (70-99) mg/dL Calculated Osmolality 295 (280-300) Calcium 10.4 (8.6-10.8) mg/dL Troponin I 0.25 H* (0-0.03) ng/mL - Radiology Data Radiology results reviewed: Yes I reviewed the patient's radiology results. Chest X-Ray 06/05/16 10:22 IMPRESSION: No acute process. Stable cardiomegaly D/ / Matteo Mondragon MD / Matteo Mondragon MD Interpreting Provider: Matteo Mondragon MD - EKG Data EKG #1 EKG results narrative: EKG obtained at 1016 shows likely A. fib with RVR related to 15. QTC of 309. QRS duration 90. No ST elevation. EKG change from prior. EKG #2 Rate: tachycardia Rhythm: A.Fib [place]/QRS: normal Q waves: v1, v2 Interpretation: no acute changes, nonspecific ST-T wave changes
--- NOTE | 2016-06-05 10:55 | Emergency Department Note ---
START Narrative - START START: I examined this patient and my medical decision-making was reviewed with the ARTIFICIAL INTELLIGENCE SPECIALIST/PA/Advanced Practice Nurse/Resident Physician. I agree with the documented findings, disposition and treatment plan as described except to the extent set forth below. ED attending note: Patient seen with emergency medicine resident Dr. Ivan. Please see a copy of his note for details of the H&P, evaluation, management and disposition of this patient. We independently had [id number] contact with the patient Briefly: A 65-year-old -[place] male via EMS brought in for fast heart rate. Patient was end-stage renal disease dialysis dependent was sent from dialysis before it started today due to very fast heart rate. Patient had a heart rate of about 225 with a systolic of 108. Initially we attempted 6 mg of IV adenosine with no effect. While awaiting for calcium gluconate to arrive to premedicate before synchronized cardioversion in about 15 minutes patient spontaneously converted to a sinus rhythm of about 80 bpm and felt better. 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 Provided 45 minutes critical care service for this patient. Disposition pending.
[2016-06-05 13:13] LABS: Magnesium 2.2 mg/dL (1.6-2.6); Phosphorous 4.8 mg/dL (2.3-4.7)
[2016-06-05] MEDS ORDERED: Diltiazem CD (24hr) 120 MG CAPSULE PO SCH (13:15)
[2016-06-05] MEDS ORDERED: Naloxone 0.4 MG/ML INJ IVP PRN (13:17)
[2016-06-05] MEDS ORDERED: Acetaminophen 325 MG TABLET PO PRN (13:17)
[2016-06-05] MEDS ORDERED: Nitroglycerin 0.4 MG TAB.SUBL SL PRN (13:19)
[2016-06-05] MEDS ORDERED: *HR* HYDROcodone/Acet 5/325 mg TABLET PO PRN (13:19)
[2016-06-05] MEDS ORDERED: Furosemide 40 MG/4 ML VIAL IVP ONE (13:58)
--- NOTE | 2016-06-05 14:09 | Internal Med History&Physical ---
Date of Encounter: 06/05/16 Time of Encounter: 14:07 Assessment and Plan (1) Atrial fibrillation with RVR Current visit: Yes Status: Acute Patient presented with heart rate in the 200s, was given adenosine with no response and during preparation for cardioversion, patient spontaneously converted to aflutter with heart rate in low 100s. On my exam, the monitor showed irregularity and arrhythmias with heart rate jumping to 120s-130s and back down to low 100s. Soon after he was transferred to from the ED, a rapid response was called for V-tach. Patient given a bolus of cardizem and patient converted to afib with RVR, with HR in 110s. Cardiology present at the rapid response. Amiodarone bolus and drip started and patient transferred to . 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 (2) ESRD (end stage renal disease) Current visit: Yes Status: Acute Patient with ESRD on HD for the last 12 years. He is due for dialysis today. Potassium and magnesium WNL. BUN at baseline of 23. Dr. Medeiros consulted for nephrology as patient will need dialysis when stabilized. Will recheck potassium and magnesium this afternoon and get full chemistry tomorrow morning. (3) CHF (congestive heart failure) Current visit: No Status: Chronic Patient with history of CHF. Cardiac cath from 2015 shows EF of 40%. Will get echocardiogram. Cardiology consulted. Qualifiers: Congestive heart failure type: systolic Congestive heart failure chronicity : chronic Qualified Code(s): I50.22 - Chronic systolic (congestive) heart failure (4) Elevated troponin Current visit: Yes Status: Chronic Patient's troponin 0.25 on presentation. Patient denies any chest pain. Patient's troponin is chronically elevated in the setting of ESRD. He has a history of CAD with stents to LAD and RCA. He had a cardiac CAth in 09/2015 which showed sstable CAD, patent LAD and RCA stents and EF of 40%. 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 Internal Medicine - H&P: HPI Chief complaint: shortness of breath Admitted From: Emergency Dept Plans for Post Hospital Care: Home History of present illness: Mr. Manzano is a 65 year old male with hypertension, hyperlipidemia, ESRD on HD MWF , CAD s/p stents to LAD and RCA, CHF, who was sent to the ED from dialysis today prior to his dialysis treatment due to tachycardia. Patient was complaining of shortness of breath and palpitations upon arrival to dialysis and his heart rate was found to be in the 200s. He reports occasional lightheadedness, but denies chest pain, fever, cough, numbness or tingling. In the ED, patient was given adenosine, with no resolution of tachycardia. They were preparing to cardiovert patient and he spontaneously converted to aflutter in the low 100s. Other evaluation revealed elevated troponin of 0.25, though patient is chronically elevated in the setting of ESRD. Potassium was within normal limits at 4.2. Creatinine was at baseline. Magnesium was within normal limits. WBC was normal at 5.6. The ED consulted cardiology and nephrology. On exam, patient alert and oriented, in no acute distress. Heart had irregular, tachycardic rhythm, with systolic murmur. Lungs were clear bilaterally to auscultation. He was satting 92% on 5L NC. His rhythm on the monitor was irregular and kept jumping to 120s-130s and back to low 100s. Patient was transferred to , and a rapid response was called soon after for v-tach. Patient was given a bolus of cardizem and amiodarone and was started on an amiodarone drip. Due to concern for ischemic event, started heparin drip as well. Patient transferred to for higher level of care. Past Med Surg Social Fam HX - Past Medical History Medical history: arthritis, atrial fibrillation, cancer, cardiomyopathy, coronary artery disease, diabetes, dialysis, GERD, hyperlipidemia, hypertension , kidney stones, malignancy, myocardial infarction, renal disease, other Psychiatric history: no psych history - Past Surgical History Surgical History: angioplasty/stent, appendectomy, herniorrhaphy, prostatectomy - Social History Smoking Status: Never smoker Smokeless Tobacco Status: No Alcohol use: none Drug use: none - Family History Mother Adopted: No Family Member Ethnicity: Non- Living Status: Age at : 67 Cause of : MS Hx Family Cardiac Disorders: No Hx Family Respiratory Disorders: No Hx Family Cancer: No Hx Family GI Disorders: No Hx Family Endocrine Disorder: No Hx Family Neuromuscular Disorders: No Hx Family Neurologic Disorders: Yes Hx Family HEENT Disorders: No Hx Family Autoimmune Disorders: No Father Living Status: Age at : 69 Cause of : [place] Hx Family Cardiac Disorders: Yes Internal Medicine - H&P: Meds Allopurinol [Zyloprim] 100 mg PO DAILY 12/21/14 [History] Atorvastatin [Lipitor] 10 mg PO HS 12/21/14 [History] Chlorhexidine Gluconate [Peridex] 30 ml MM BID 12/21/14 [History] Cinacalcet [Sensipar] 60 mg PO DAILY 12/21/14 [History] Clopidogrel Bisulfate [Plavix] 75 mg PO DAILY 12/21/14 [History] Escitalopram [Lexapro] 10 mg PO DAILY 12/21/14 [History] Lisinopril [Zestril] 10 mg PO DAILY 12/21/14 [History] Metoprolol XL (24 HR) Succ [Toprol XL] 100 mg PO DAILY 12/21/14 [History] Nitroglycerin 0.4 mg SL AD PRN 12/21/14 [History] Sevelamer [Renvela] 800 mg PO TIDWM 12/21/14 [History] Sucralfate [Carafate] 10 ml PO BID 12/21/14 [History] TraZODone 100 mg PO HS 12/21/14 [History] Aspirin 325 mg PO DAILY 06/23/15 [History] Gabapentin [Neurontin] 300 mg PO BID #60 capsule 06/25/15 [Rx] Pantoprazole Sodium [Protonix] 40 mg PO DAILY #0 06/25/15 [Rx] Isosorbide MONOnitrate (24 HR) [Imdur] 30 mg PO DAILY #30 tab.er.24h 10/02/15 [ Rx] HYDROcodone/Acet 5/325 mg [[place] 5-325 mg] 1 tab PO Q4H PRN 04/18/16 [History] Allergies No Known Allergies Allergy (Verified 06/05/16 10:14) All Systems PM: A 10-system review of systems was performed and is negative for pertinent findings except as documented above in the HPI. - Constitutional Constitutional: no chills, no fever(s), no night sweats - EENT Eyes: no change in vision, no discharge, no pain, no photophobia Ears: no ear discharge, no ear pain, no tinnitus Nose, mouth and throat: no dysphagia, no nasal discharge, no neck pain, no sore throat - Cardiovascular Cardiovascular ROS IM: dyspnea, dyspnea on exertion, lightheadedness, palpitations, no chest pain, no diaphoresis, no syncope - Respiratory Respiratory: dyspnea, dyspnea on exertion, no cough, no wheezing, no excessive phlegm production - Gastrointestinal Gastrointestinal: no abdominal pain, no diarrhea, no hematemesis, no hematochezia, no melena, no nausea, no vomiting - Musculoskeletal Musculoskeletal ROS IM: no numbness, no tingling - Integumentary Integumentary IM: no rash, no unusual bruising - Neurological Neurological ROS: no confusion, no convulsions, no focal weakness, no numbness, no tingling, no tremor(s) - Hematologic/Lymphatic Hematologic/Lymphatic: no easy bruising - Constitutional Vitals: Temp Pulse Resp BP Pulse Ox 95.2 F L 105 17 125/91 95 06/05/16 14:00 06/05/16 14:00 06/05/16 14:00 06/05/16 14:00 06/05/16 14:00 General appearance: Present: A&O X 3, pleasant, no acute distress - Head Head exam: Present: atraumatic, normocephalic - Eye Eye exam: Present: PERRL, conjuntiva pink, sclera anicteric Pupils: Present: PERRL - Neck Neck exam general surgery: Present: supple, trachea midline. Absent: lymphadenopathy - Respiratory Respiratory exam: Present: CTAB. Absent: accessory muscle use, rales, rhonchi, wheezes - Cardiovascular Cardiovascular exam: Present: irregular rhythm, +S1, +S2, systolic murmur, tachycardia. Absent: diastolic murmur, gallop, rubs - GI/Abdominal GI/Abdominal exam: Present: normal bowel sounds, soft, no peritoneal signs. Absent: distended, tenderness - Extremities Exam Extremities exam: Present: warm, radial pulses palpable and symetrical. Absent : calf tenderness, cyanotic, pedal edema - Neurological Exam Neurological exam: Present: CN II-XII intact, oriented X3, no focal deficits. Absent: facial droop, speech deficit - Skin Skin exam: Present: dry, intact Internal Med - H&P Results - Labs CBC & Chem 7: 06/05/16 16:30 05/01/17 16:30 Labs: All Lab Results (24 Hours) 06/05/16 06/05/16 06/05/16 Range/Units 10:20 10:20 10:20 WBC 5.6 (4.3-11.1) K/mcL RBC 4.79 (4.19-5.50) M/mcL Hgb 14.2 (12.9-16.9) g/dL Hct 44.3 (37.5-50.1) % MCV 92.5 (83.0-100.0) fL MCH 29.6 (28.0-33.3) pg MCHC 32.1 (31.6-35.5) g/dL RDW 14.8 H (11.5-14.5) % Plt Count 147 (140-400) K/mcL MPV 11.0 (9.4-12.4) fL Immature Gran % 0.4 (0-4) % Seg Neutrophils % 62.1 % Lymphocytes % 24.6 % Monocytes % 9.1 % Eosinophils % 2.5 % Basophils % 1.3 % Neutrophils # 3.5 (1.6-8.9) K/mcL Lymphocytes # 1.4 (0.6-4.6) K/mcL Monocytes # 0.5 (0.0-1.3) K/mcL Eosinophils # 0.1 (0.0-0.6) K/mcL Basophils # 0.1 (0.0-0.2) K/mcL D-Dimer (0-500) ng/mLFEU Sodium 141 (136-145) mEq/L Potassium 4.2 (3.5-4.5) mEq/L Chloride 96 L (98-109) mEq/L Carbon Dioxide 21 (19-29) mEq/L BUN 23 (8-26) mg/dL Creatinine 9.85 H (0.72-1.25) mg/dL Est GFR ( Amer) 6 L (> 60) Est GFR (Non-Af Amer) 5 L (> 60) BUN/Creatinine Ratio 2 L (6-26) Glucose 94 (70-99) mg/dL Calculated Osmolality 295 (280-300) Calcium 10.4 (8.6-10.8) mg/dL Phosphorus 4.8 H (2.3-4.7) mg/dL Magnesium 2.2 (1.6-2.6) mg/dL Troponin I 0.25 H* (0-0.03) ng/mL 06/05/16 Range/Units 10:20 WBC (4.3-11.1) K/mcL RBC (4.19-5.50) M/mcL Hgb (12.9-16.9) g/dL Hct (37.5-50.1) % MCV (83.0-100.0) fL MCH (28.0-33.3) pg MCHC (31.6-35.5) g/dL RDW (11.5-14.5) % Plt Count (140-400) K/mcL MPV (9.4-12.4) fL Immature Gran % (0-4) % Seg Neutrophils % % Lymphocytes % % Monocytes % % Eosinophils % % Basophils % % Neutrophils # (1.6-8.9) K/mcL Lymphocytes # (0.6-4.6) K/mcL Monocytes # (0.0-1.3) K/mcL Eosinophils # (0.0-0.6) K/mcL Basophils # (0.0-0.2) K/mcL D-Dimer 2322 H (0-500) ng/mLFEU Sodium (136-145) mEq/L Potassium (3.5-4.5) mEq/L Chloride (98-109) mEq/L Carbon Dioxide (19-29) mEq/L BUN (8-26) mg/dL Creatinine (0.72-1.25) mg/dL Est GFR ( Amer) (> 60) Est GFR (Non-Af Amer) (> 60) BUN/Creatinine Ratio (6-26) Glucose (70-99) mg/dL Calculated Osmolality (280-300) Calcium (8.6-10.8) mg/dL Phosphorus (2.3-4.7) mg/dL Magnesium (1.6-2.6) mg/dL Troponin I (0-0.03) ng/mL - Diagnostic Studies Chest x-ray Additional comments: Chest X-Ray 06/05/16 10:22 IMPRESSION: No acute process. Stable cardiomegaly D/ / Matteo Mondragon MD / Matteo Mondragon MD Interpreting Provider: Matteo Mondragon MD
[2016-06-05] MEDS ORDERED: *HR* Metoprolol 5 MG/5 ML VIAL IVP ONE (14:14)
[2016-06-05] MEDS ORDERED: Amiodarone Premix 360 MG/200 ML BAG IVC ONE (14:26)
[2016-06-05] MEDS ORDERED: *HR* Heparin 5,000 UNIT/ML VIAL IVP PRN (14:28)
[2016-06-05] MEDS ORDERED: *HR* Heparin 5,000 UNIT/ML VIAL IVP ONE (14:28)
--- NOTE | 2016-06-05 14:34 | Event Note ---
Date of Encounter: 06/05/16 Time of Encounter: 14:31 Patient seen and examined with nurse practitioner. Agree with assessment and plan. Patient started experiencing atrial and ventricular arrhythmias prior to initiating dialysis. EKGs shows narrow complex tachycardia likely SVT vs A flutter rate 220 which slowed down to a rate of 110 regular rhythm atrial flutter versus atrial tachycardia with block. Patient again experienced this arrhythmia and also experienced V tach. He was started on amiodarone bolus and drip. He will be started on heparin drip for possible ischemic event and until VQ scan r/o PE. Discussed the case with cardiology or evaluating the patient now. I also discussed the case with nephrology although he is unstable for dialysis now once more stable throughout the night or if he develops pulmonary edema he will need urgent dialysis and nephrology is aware of that.
--- NOTE | 2016-06-05 14:56 | Cardiology Consult Note ---
Date of Encounter: 06/05/16 Time of Encounter: 14:30 Assessment and Plan (1) Atrial flutter with rapid ventricular response Current Visit: Yes Status: Acute Per cardiology: -ECG 06/05/16 1016 with atrial flutter, HR 215. ECG reviewed with and felt to be atrial flutter, but cannot rule out SVT. Rhythm did not respond to adenosine in ER. -Patient with known history of atrial fibrillation, not previously on anticoagualtion. -[id number] score 3, recommend halfway anticoagulation. Patient started on heparin drip. -Patient started on amiodarone drip during rapid response. -Echo and LHC pending. -Further recommendations pending echo and LHC. -Will decide halfway anticoagulation after echo and LHC. -Patient states understanding and agrees with plan. (2) Ventricular tachycardia Current Visit: Yes Status: Acute Per cardiology: -Patient with ventricular tachycardia and rapid response called. Telemetry strips reviewed with and ventricular tachycardia noted with longest run noted to be about 45seconds. Patient was alert and oriented during episodes and all other vital signs stable. Patient did however feel increasingly short of breath during episode. -Was given cardizem 10mg IVP per primary service. Rhythm returned to atrial flutter. -Amiodarone 150mg IV bolus given and amiodarone drip started. Heparin drip started. -Echo and LHC pending. -On toprol 100mg daily. -Electrolytes within normal limits. -PLan for LHC tomorrow. -Can further titrate beta blockers as clinically deemed appropriate. (3) Elevated troponin Current Visit: Yes Status: Chronic Per cardiology: -Elevated troponin in the setting of atrial flutter and ventricular tachycardia. -Troponin 0.25, D.Dimer 2322. -ON asa, heparin drip, statin, plavix, beta ramon, imdur. -Cath 10/01/15 with left main normal, proximal LAD 30% stenosis, patent mid LAD stent, distal LAD 40%, 30% circumflex, RCA with patent stent. -Per review of records, patient chronically has elevated troponin. -Echo pending. -LHC pending. Per discussion with , patient will be discussed with nephrology for possible cath. spoke to Dr.Waldemar, who states they will do dialysis tomorrow in the morning and plan for LHC after dialysis. -Patient denies chest pain. -Patient admits to increased shortness of breath. -Further recommendations pending echo and LHC. (4) End-stage renal disease Current Visit: No Status: Chronic Per cardiology: -ESRD on hemodialysis. -Nephrology consulted. -Management per primary and nephrology services. (5) Ischemic cardiomyopathy Current Visit: Yes Status: Chronic Per cardiology: -Known ischemic cardiomyopathy. -EF 40% per nuclear stress test 2014. -Cath 2015 with LVEF 40%. -On asa, statin, beta ramon, maritza inhibitor. -Echo pending. -LHC pending. -Further recommedations pending echo LHC. Discussion w patient/family: The assessment and plan as outlined above was discussed with the patient who expressed understanding and agreement. All questions were answered. Thank you for involving us in the care of your patient. Please call with any questions. Discussed and reviewed with . History of Present Illness Consult date: 06/05/16 Requesting physician: Juan R Preez Consult reason: a.fib RVR, ESRD Chief complaint: shortness of breath History of present illness: Mr. Manzano is a 65 year old male with a relevant past medical history of DM, ESRD on HD, HTN, Prostate CA, CAD s/p stenting, Ischemic cardiomyopathy. Patient presented to dialysis today, but was short of breath so he was taken to [facility]. Upon evaluation in ER, patient was noted to be tachycardic, with HRs 200s. Cardiology was consulted. During research into patient's history, a rapid response was called for patient due to ventricular tachycardia. Patient was awake and oriented, however was extremely short of breath. Cardiology responded to rapid response. Patient was given cardizem IV push per primary service and patient returned to atrial flutter rhythm, HR 115. Cardiology recommended amiodarone bolus and was given. Amiodarone drip started. Patient's BPs stable. Patient's electrolytes stable. Patient denies chest pain. Patient states shortness of breath is slightly worse than normal and fatigue is about baseline. Past Med Surg Social Fam HX - Past Medical History Attestation: Yes The following information was validated with the patient. Source: patient, old records reviewed Medical history: arthritis, atrial fibrillation, cancer, cardiomyopathy, coronary artery disease, diabetes, dialysis, GERD, hyperlipidemia, hypertension , kidney stones, malignancy, myocardial infarction, renal disease, other Psychiatric history: no psych history - Past Surgical History Surgical History: angioplasty/stent, appendectomy, herniorrhaphy, prostatectomy - Social History Smoking Status: Never smoker Smokeless Tobacco Status: No Alcohol use: none Drug use: none - Family History Father Living Status: Age at : 69 Cause of : [place] Hx Family Cardiac Disorders: Yes Mother Adopted: No Family Member Ethnicity: Non- Living Status: Age at : 67 Cause of : [place] Hx Family Cardiac Disorders: No Hx Family Respiratory Disorders: No Hx Family Cancer: No Hx Family GI Disorders: No Hx Family Endocrine Disorder: No Hx Family Neuromuscular Disorders: No Hx Family Neurologic Disorders: Yes Hx Family HEENT Disorders: No Hx Family Autoimmune Disorders: No Medications and Allergies Allopurinol [Zyloprim] 100 mg PO DAILY 12/21/14 [History] Atorvastatin [Lipitor] 10 mg PO HS 12/21/14 [History] Chlorhexidine Gluconate [Peridex] 30 ml MM BID 12/21/14 [History] Cinacalcet [Sensipar] 60 mg PO DAILY 12/21/14 [History] Clopidogrel Bisulfate [Plavix] 75 mg PO DAILY 12/21/14 [History] Escitalopram [Lexapro] 10 mg PO DAILY 12/21/14 [History] Lisinopril [Zestril] 10 mg PO DAILY 12/21/14 [History] Metoprolol XL (24 HR) Succ [Toprol XL] 100 mg PO DAILY 12/21/14 [History] Nitroglycerin 0.4 mg SL AD PRN 12/21/14 [History] Sevelamer [Renvela] 800 mg PO TIDWM 12/21/14 [History] Sucralfate [Carafate] 10 ml PO BID 12/21/14 [History] TraZODone 100 mg PO HS 12/21/14 [History] Aspirin 325 mg PO DAILY 06/23/15 [History] Gabapentin [Neurontin] 300 mg PO BID #60 capsule 06/25/15 [Rx] Pantoprazole Sodium [Protonix] 40 mg PO DAILY #0 06/25/15 [Rx] Isosorbide MONOnitrate (24 HR) [Imdur] 30 mg PO DAILY #30 tab.er.24h 10/02/15 [ Rx] HYDROcodone/Acet 5/325 mg [[place] 5-325 mg] 1 tab PO Q4H PRN 04/18/16 [History] Allergies No Known Allergies Allergy (Verified 06/05/16 10:14) All Systems Review: A 10-system review of systems was performed and is negative for pertinent findings except as documented above in the HPI. - Cardiovascular Cardiovascular: as per HPI, dyspnea at rest, dyspnea on exertion, irregular heart rhythm Physical Examination Vital Signs, Last 4 Hours Temp Pulse Resp BP Pulse Ox 06/05/16 14:00 95.2 F L 105 17 125/91 95 06/05/16 13:11 18 125/98 General: Conversant, No Apparent Distress (Mild conversational dyspnea noted. ) HEENT: Atraumatic, Normocephaly, Mucus Membranes Moist Neck: No JVD, Normal carotid pulses Cardiac: Other (Irregularly, irregular) Lungs: Normal Breath Sounds, No Wheeze, Rales, Rhonchi Neuro: Alert and responsive, No focal deficits noted Abdomen: Soft, Non-Tender Skin: No rashes noted on visualized skin, Other (Left arm fistula noted. ) Musculoskeletal: No Chest Wall Tenderness Extremities: No Clubbing, No Cyanosis, No Edema, Normal Pulses Results 06/05/16 10:20 06/05/16 10:20 Impressions Chest X-Ray 06/05/16 10:22 IMPRESSION: No acute process. Stable cardiomegaly D/ / Matteo Mondragon MD / Matteo Mondragon MD Interpreting Provider: Matteo Mondragon MD Active Medications Acetaminophen (Tylenol) 650 mg PO Q6HR PRN PRN Reason: Mild Pain (1-3) Stop: 12/05/16 13:18 Acetaminophen/Hydrocodone Bitart ([place] 5-325 Mg) 1 tab PO Q4H PRN PRN Reason: Pain Stop: 12/05/16 13:20 Allopurinol (Zyloprim) 100 mg PO DAILY [facility] Stop: 12/06/16 09:01 Aspirin (Aspirin) 325 mg PO DAILY [facility] Stop: 12/06/16 09:01 Atorvastatin Calcium (Lipitor) 10 mg PO HS [facility] Stop: 12/05/16 21:01 Cinacalcet (Sensipar) 60 mg PO DAILY [facility] Stop: 12/06/16 09:01 Clopidogrel Bisulfate (Plavix) 75 mg PO DAILY [facility] Stop: 12/06/16 09:01 Docusate Sodium (Colace) 100 mg PO BID PRN PRN Reason: Constipation Stop: 12/05/16 13:18 Escitalopram Oxalate (Lexapro) 10 mg PO DAILY [facility] Stop: 12/06/16 09:01 Gabapentin (Neurontin) 300 mg PO BID [facility] Stop: 12/05/16 21:01 Heparin Sodium (Porcine) (Heparin) 4,000 unit IVP Q6HR PRN PRN Reason: SEE COMMENTS Stop: 12/05/16 14:29 Heparin Sodium (Porcine) (Heparin) 2,000 unit IVP Q6H PRN PRN Reason: SEE COMMENTS Stop: 12/05/16 14:29 Amiodarone HCl/Dextrose (Amiodarone 360mg/200ml Drip Premix) 360 mg in 200 mls @ 16.667 mls/hr IVC CONT [facility] PRN Reason: 0.5 MG/MIN Stop: 12/05/16 14:31 Amiodarone HCl/Dextrose (Amiodarone 360mg/200ml Drip Premix) 360 mg in 200 mls @ 33.333 mls/hr IVC ONCE ONE PRN Reason: 1 MG/MIN Stop: 06/05/16 20:25 Heparin Sodium/Dextrose (Heparin 25,000 Unit/500 Ml D5w) 25,000 unit in 500 mls @ 19.848 mls/hr IVC .Q24H [facility]; 11.7 UNIT/KG/HR PRN Reason: Protocol Stop: 12/05/16 14:31 Isosorbide Mononitrate (Imdur) 30 mg PO DAILY [facility] Stop: 12/06/16 09:01 Metoprolol Succinate (Toprol Xl) 100 mg PO DAILY [facility] Stop: 12/06/16 09:01 Naloxone HCl (Narcan) 0.4 mg IVP Q2MIN PRN PRN Reason: Opioid Reversal Stop: 12/05/16 13:18 Nitroglycerin (Nitroglycerin) 0.4 mg SL AD PRN PRN Reason: Chest Pain Stop: 12/05/16 13:20 Omeprazole (Prilosec) 20 mg PO DAILY [facility] Stop: 12/06/16 09:01 Sevelamer HCl (Renvela) 800 mg PO TIDWM [facility] Stop: 12/05/16 17:01 Sucralfate (Carafate) 1 gm PO BID [facility] Stop: 12/05/16 21:01 Trazodone HCl (Trazodone) 100 mg PO HS [facility] Stop: 12/05/16 21:01 Laboratory Tests 06/15/14 06/16/14 06/26/14 13:12 06:37 21:01 WBC Hgb Hct D-Dimer Sodium Potassium Creatinine Magnesium Troponin I 0.60 H* 0.48 H* 0.27 H* 10/04/15 11/29/15 04/17/16 03:04 05:52 23:04 WBC Hgb Hct D-Dimer Sodium Potassium Creatinine 11.29 H D 9.84 H Magnesium Troponin I 0.22 H* 04/18/16 04/18/16 04/19/16 05:58 11:57 06:31 WBC Hgb Hct D-Dimer Sodium Potassium Creatinine 8.72 H Magnesium Troponin I 0.21 H* 0.20 H* 06/05/16 06/05/16 06/05/16 10:20 10:20 10:20 WBC 5.6 Hgb 14.2 Hct 44.3 D-Dimer Sodium 141 Potassium 4.2 Creatinine 9.85 H Magnesium 2.2 Troponin I 0.25 H* 06/05/16 10:20 WBC Hgb Hct D-Dimer 2322 H Sodium Potassium Creatinine Magnesium Troponin I - Imaging and Cardiology Chest Xray: report reviewed Echo: pending, report reviewed Cardiac cath: pending, report reviewed - EKG Interpretation EKG results cardiology: personally reviewed (Multiple ECGs reviewed.), other ( Telemetry reviewed with average HR 115. PVCs and triplets noted. Patient with mutiple long runs of ventricular tachycardia, longest 45 second run of ventricular tachycardia.) Consult Discharge Plan - Plan Referrals: Dylon Medeiros DO [Primary Care Provider] -
[2016-06-05 16:44] LABS: Hematocrit 42.9 % (37.5-50.1); Hemoglobin 13.6 g/dL (12.9-16.9); Mean Corpuscular HGB Conc 31.7 g/dL (31.6-35.5); Mean Corpuscular Hemoglobin 29.9 pg (28.0-33.3); Mean Corpuscular Volume 94.3 fL (83.0-100.0); Mean Platelet Volume 10.8 fL (9.4-12.4); Platelet Count 141 K/mcL (140-400); Red Blood Count 4.55 M/mcL (4.19-5.50); Red Cell Distribution Width 14.5 % (11.5-14.5)
[2016-06-05] MEDS: Heparin 25,000 UNIT/500 ML D5W 25,000 UNIT/500 ML MLS IVC SCH (16:49)
[2016-06-05 16:55] LABS: INR 1.8; Prothrombin Time 19.8 Seconds (9.4-12.1)
[2016-06-05 16:56] LABS: Potassium 4.9 mEq/L (3.5-4.5)
[2016-06-05 16:57] LABS: Activated Partial Thrombo Time 33.3 Seconds (26.0-36.0)
[2016-06-05] MEDS ORDERED: Calcium Gluconate 1,000 MG in D5% in Water 100 ML IVPB ONE (17:18)
[2016-06-05] MEDS ORDERED: *HR* Heparin 5,000 UNIT/ML VIAL SQ SCH (18:00)
[2016-06-05] MEDS: *HR* Heparin 5,000 UNIT/ML VIAL IVP PRN (18:25)
--- NOTE | 2016-06-05 19:34 | Electrocardiograph Report ---
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
[2016-06-05] MEDS: traZODone 50 MG TABLET PO SCH (20:09)
[2016-06-05] MEDS: Gabapentin 300 MG CAPSULE PO SCH (20:09)
[2016-06-05] MEDS ORDERED: Ondansetron 4 MG/2 ML VIAL IVP ONE (21:47)
[2016-06-05] MEDS: Amiodarone Premix 360 MG/200 ML BAG IVC SCH (22:18)
[2016-06-05] MEDS ORDERED: D5% in Water 1,000 ML IVC PRN (23:35)
[2016-06-05] MEDS ORDERED: *HR* Dextrose 50 % in Water (Syg) 50 ML SYRINGE IVP PRN (23:35)
[2016-06-05] MEDS ORDERED: Dextrose Gel 15 GM PO PRN ×2 (23:35)
[2016-06-06 01:10] LABS: Activated Partial Thrombo Time > 360.0 Seconds (26.0-36.0)
[2016-06-06 01:31] LABS: Heparin anti-factor XA UFH 0.78 IU/mL (0.30-0.70)
[2016-06-06 05:23] LABS: Basophils % 0.3 %; Eosinophils % 0.3 %; Hematocrit 37.1 % (37.5-50.1); Hemoglobin 12.3 g/dL (12.9-16.9); Immature Granulocytes % 0.4 % (0-4); Lymphocytes # 1.3 K/mcL (0.6-4.6); Lymphocytes % 17.4 %; Mean Corpuscular HGB Conc 33.2 g/dL (31.6-35.5); Mean Corpuscular Hemoglobin 30.8 pg (28.0-33.3); Mean Corpuscular Volume 92.8 fL (83.0-100.0); Mean Platelet Volume 11.4 fL (9.4-12.4); Monocytes # 0.7 K/mcL (0.0-1.3); Monocytes % 10.1 %; Neutrophils # 5.2 K/mcL (1.6-8.9); Platelet Count 129 K/mcL (140-400); Red Cell Distribution Width 14.6 % (11.5-14.5); Segmented Neutrophils % 71.5 %
[2016-06-06 05:37] LABS: Calcium 9.5 mg/dL (8.6-10.8); Magnesium 2.1 mg/dL (1.6-2.6); Phosphorous 6.1 mg/dL (2.3-4.7)
[2016-06-06 06:06] LABS: Potassium 5.8 mEq/L (3.5-4.5)
--- NOTE | 2016-06-06 08:08 | Nephrology Consult Note ---
Date of Encounter: 06/06/16 Time of Encounter: 08:06 Assessment and Plan (1) End-stage renal disease Current Visit: No Status: Chronic The patient is end-stage renal disease related to diabetic nephropathy and hypertension. He did not receive dialysis yesterday. He will undergo dialysis this morning and then subsequently undergo a cardiac catheter later today. Hemoglobin is 12.3 does not require Aranesp at this point in time. Volume status appears to be satisfactory. Potassium is 5.8. We will dialyze him on a 2K bath. (2) NSTEMI (non-ST elevated myocardial infarction) Current Visit: No Status: Acute (3) CAD (coronary artery disease) Current Visit: No Status: Chronic Qualifiers: Coronary Disease-Associated Artery/Lesion type: [place] artery [place] vs. transplanted heart: [place] heart Associated angina: without angina Qualified Code(s): I25.10 - Atherosclerotic heart disease of [place] coronary artery without angina pectoris (4) PAF (paroxysmal atrial fibrillation) Current Visit: No Status: Chronic History of Present Illness - History of Present Illness This is a 65-year-old male with end-stage renal disease related diabetes and hypertension. He receives dialysis every Sunday in [place]. Patient presented to dialysis yesterday with increasing shortness of breath. He is noted to have a heart rate in the 160s. He was subsequently sent to the emergency room. He was noted to be in A. fib with RVR with a heart rate of 200 in the emergency room. He subsequently developed some V. tach. He has been started on amiodarone as well as a heparin drip. He has been admitted to the hospital for further evaluation. The patient does have a history of coronary artery disease he status post stent placement. He also has a history of A. fib. Patient underwent a CTA that was negative for pulmonary embolism. Patient's troponin is elevated. He is going to undergo a cardiac catheter later today. He did not get his dialysis yesterday so he will undergo dialysis today. Currently the patient says he feels some better although he is still experiencing some shortness of breath. Past Med Surg Social Fam HX - Past Medical History Medical history: arthritis, atrial fibrillation, cancer, cardiomyopathy, coronary artery disease, diabetes, dialysis, GERD, hyperlipidemia, hypertension , kidney stones, malignancy, myocardial infarction, renal disease, other Psychiatric history: no psych history - Past Surgical History Surgical History: angioplasty/stent, appendectomy, herniorrhaphy, prostatectomy - Social History Smoking Status: Never smoker Smokeless Tobacco Status: No Alcohol use: none Drug use: none - Family History Father Living Status: Age at : 69 Cause of : [place] Hx Family Cardiac Disorders: Yes Mother Adopted: No Family Member Ethnicity: Non- Living Status: Age at : 67 Cause of : [place] Hx Family Cardiac Disorders: No Hx Family Respiratory Disorders: No Hx Family Cancer: No Hx Family GI Disorders: No Hx Family Endocrine Disorder: No Hx Family Neuromuscular Disorders: No Hx Family Neurologic Disorders: Yes Hx Family HEENT Disorders: No Hx Family Autoimmune Disorders: No Medications and Allergies Allopurinol [Zyloprim] 100 mg PO DAILY 12/21/14 [History] Atorvastatin [Lipitor] 10 mg PO HS 12/21/14 [History] Chlorhexidine Gluconate [Peridex] 30 ml MM BID 12/21/14 [History] Cinacalcet [Sensipar] 60 mg PO DAILY 12/21/14 [History] Clopidogrel Bisulfate [Plavix] 75 mg PO DAILY 12/21/14 [History] Escitalopram [Lexapro] 10 mg PO DAILY 12/21/14 [History] Lisinopril [Zestril] 10 mg PO DAILY 12/21/14 [History] Metoprolol XL (24 HR) Succ [Toprol XL] 100 mg PO DAILY 12/21/14 [History] Nitroglycerin 0.4 mg SL AD PRN 12/21/14 [History] Sevelamer [Renvela] 800 mg PO TIDWM 12/21/14 [History] Sucralfate [Carafate] 10 ml PO BID 12/21/14 [History] TraZODone 100 mg PO HS 12/21/14 [History] Aspirin 325 mg PO DAILY 06/23/15 [History] Gabapentin [Neurontin] 300 mg PO BID #60 capsule 06/25/15 [Rx] Pantoprazole Sodium [Protonix] 40 mg PO DAILY #0 06/25/15 [Rx] Isosorbide MONOnitrate (24 HR) [Imdur] 30 mg PO DAILY #30 tab.er.24h 10/02/15 [ Rx] HYDROcodone/Acet 5/325 mg [[place] 5-325 mg] 1 tab PO Q4H PRN 04/18/16 [History] Allergies No Known Allergies Allergy (Verified 06/05/16 10:14) Review of Systems Constitutional: weakness Nose, mouth and throat: no dizziness, no headache(s) Cardiovascular: chest pain, dyspnea, dyspnea on exertion, rapid heart rate Respiratory: dyspnea, dyspnea on exertion Gastrointestinal: no abdominal pain, no change in bowel habits Musculoskeletal: no muscle weakness, no numbness Integumentary: no hirsutism, no striae Neurological: weakness Psychiatric: no depression, no difficulty concentrating Endocrine: as per HPI Hematologic/Lymphatic: no easy bruising, no lymphadenopathy Exam - Vital Signs Vital signs: Initial Vital Signs Temp Pulse Resp BP Pulse Ox 97.7 F 225 24 111/83 99 06/05/16 10:16 06/05/16 10:16 06/05/16 10:16 06/05/16 10:16 06/05/16 10:16 Vital Signs - Last 8 Hours Temp Pulse Resp BP Pulse Ox 06/06/16 07:15 97.8 F 98 18 120/73 97 06/06/16 04:52 98.0 F 99 20 126/73 99 Intake and Output 06/05/16 06/06/16 06/06/16 23:59 07:59 15:59 Intake Total 904.4 / 904.4 268.6 / 268.6 Balance 904.4 / 904.4 268.6 / 268.6 Intake: IV Fluids 339.4 / 339.4 268.6 / 268.6 Amiodarone 360mg/200mL 200 / 200 Drip Premix 360 mg In 200 ml @ 1 MG/MIN 33.333 mls /hr IVC ONCE ONE Rx#: [id number] Heparin 25,000 UNIT/500 29.4 / 29.4 268.6 / 268.6 ML D5W 25,000 unit In 500 ml @ 11.7 UNIT/KG/HR 19. 848 mls/hr IVC .Q24H [facility] Rx#:[id number] Calcium Gluconate 1,000 110 / 110 MG In Dextrose 5% 100 ML @ 220 mls/hr IVPB ONCE ONE Rx#:[id number] Oral 565 / 565 Other: Meal Dinner Percent of Meal Consumed 0% Weight 78 kg Blood Glucose* 82 97 Patient Weight 06/06/16 23:59 Weight 78 kg - General Appearance Exam: Patient is alert and oriented. He is in no acute distress. Lungs essentially clear to auscultation. No wheezing rales or rhonchi. Heart currently demonstrates a regular rate and rhythm with a heart rate of about 100. Abdomen shows normal bowel sounds of bruits masses ari megaly or tenderness. There is no lower extremity swelling. There is a functioning AV fistula in the left arm. Results - Lab Results 06/06/16 04:50 06/06/16 04:50 Most recent lab results Calcium 9.5 mg/dL (8.6-10.8) 06/06/16 04:50 Phosphorus 6.1 mg/dL (2.3-4.7) H 06/06/16 04:50 Magnesium 2.1 mg/dL (1.6-2.6) 06/06/16 04:50 Consult Discharge Plan - Plan Referrals: Dylon Medeiros DO [Primary Care Provider] -
[2016-06-06] MEDS ORDERED: Aspirin 325 MG TABLET PO SCH ×2 (09:00)
[2016-06-06] MEDS ORDERED: Metoprolol XL (24 HR) Succ 50 MG TAB.ER.24H PO SCH (09:00)
[2016-06-06] MEDS: Gabapentin 300 MG CAPSULE PO SCH ×2 (09:28→21:59)
[2016-06-06] MEDS: Amiodarone Premix 360 MG/200 ML BAG IVC SCH ×2 (09:32→21:59)
--- NOTE | 2016-06-06 09:42 | Electrocardiograph Report ---
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
--- NOTE | 2016-06-06 10:30 | Event Note ---
Date of Encounter: 06/06/16 Time of Encounter: 08:00 - Cardiology Event Note Patient with atrial flutter with RVR and ventricular tachycardia yesterday. PLan for LHC today. Risk versus benefits of LHC explained to patient. Patient states understanding and agrees with plan. Per discussion with with , LHC will be done after dialysis. Echocardiogram pending. Further recommendations pending LHC.
[2016-06-06] MEDS ORDERED: 0.9 % Sodium Chloride 2,000 ML ONE ×2 (11:42→14:46)
[2016-06-06] MEDS ORDERED: *HR* FentaNYL (PF) 100 MCG/2 ML VIAL ONE ×3 (11:42→16:08)
[2016-06-06] MEDS ORDERED: *HR* Midazolam HCl 2 MG/2 ML VIAL ONE ×3 (11:42→16:08)
[2016-06-06] MEDS ORDERED: Heparin 1,000 UNITS/500 mL NS 500 ML ONE (11:43)
[2016-06-06] MEDS ORDERED: *HR* Heparin 10,000 UNIT/10 ML VIAL ONE (11:43)
[2016-06-06] MEDS ORDERED: Nitroglycerin 1,000 MCG/10 ML VIAL IV ONE (11:43)
[2016-06-06] MEDS: Heparin 25,000 UNIT/500 ML D5W 25,000 UNIT/500 ML MLS IVC SCH (12:32)
--- NOTE | 2016-06-06 12:33 | Internal Med Progress Note ---
Date of Encounter: 06/06/16 Time of Encounter: 12:33 - Assessment and plan (1) Atrial flutter with rapid ventricular response Current Visit: Yes Status: Acute Assessment and plan: Admitting ECG 06/05/16 1016 with atrial flutter, controlled now [id number] score 3, on heparin drip Continue amiodarone drip Continue home dose of toprol Follow ECHO For [facility] today (2) Ventricular tachycardia Current Visit: Yes Status: Acute Assessment and plan: Aborted with amiodarone, on amiodarone drip, continue For [facility] today (3) Ischemic cardiomyopathy Current Visit: Yes Status: Chronic Assessment and plan: Known ICMP with EF 40% Continue current meds Follow ECHO Cardiology following (4) End-stage renal disease Current Visit: Yes Status: Chronic Assessment and plan: Continue HD as scheduled Renal following (5) Hyperkalemia Current Visit: Yes Status: Acute Assessment and plan: Had HD today, rpt Chem a.m (6) Diabetes mellitus Current Visit: Yes Status: Chronic Assessment and plan: Controlled A1C 5.0 Continue sliding scale insulin Qualifiers: Diabetes mellitus type: type 2 Diabetes mellitus complication status: with kidney complications Diabetes mellitus complication detail: with chronic kidney disease Diabetes mellitus fci insulin use: without fci use Chronic kidney disease stage: on chronic dialysis Qualified Code(s): E11.22 - Type 2 diabetes mellitus with diabetic chronic kidney disease; N18.6 - End stage renal disease; Z99.2 - Dependence on renal dialysis (7) CHF (congestive heart failure) Current Visit: Yes Status: Chronic Assessment and plan: Chronic, systolic, not in exacerbation Mgt as in ICMP Follow repeat ECHO Qualifiers: Congestive heart failure type: systolic Congestive heart failure chronicity : chronic Qualified Code(s): I50.22 - Chronic systolic (congestive) heart failure (8) HTN (hypertension) Current Visit: Yes Status: Chronic Qualifiers: Hypertension type: essential hypertension Qualified Code(s): I10 - Essential (primary) hypertension (9) Hyperlipidemia Current Visit: Yes Status: Chronic Qualifiers: Hyperlipidemia type: unspecified Qualified Code(s): E78.5 - Hyperlipidemia , unspecified (10) CAD (coronary artery disease) Current Visit: Yes Status: Chronic Qualifiers: Coronary Disease-Associated Artery/Lesion type: [place] artery [place] vs. transplanted heart: [place] heart Associated angina: without angina Qualified Code(s): I25.10 - Atherosclerotic heart disease of [place] coronary artery without angina pectoris (11) ESRD (end stage renal disease) on dialysis Current Visit: Yes Status: Chronic (12) Elevated troponin Current Visit: Yes Status: Chronic Assessment and plan: Chronic, possibly from demand in setting of ESRD For [facility] Follow ECHO - Subjective Interval history: Seen and evaluated during HD 65 Y/O M, pleasant Admitted for Afib with RVR, shortly into admission, developed Vtach, he has a hx of ESRD on HD, CHF, CAD, GERD For [facility] today Denies new complains - Constitutional Vitals: Temp Pulse Resp BP Pulse Ox 97.8 F 104 18 125/84 97 06/06/16 10:00 06/06/16 11:56 06/06/16 10:00 06/06/16 12:30 06/06/16 07:15 General appearance: Present: disheveled, A&O X 3, pleasant, no acute distress Exam: VSS, O2 sat 90-92% on 6L O2 by NC Gen: Not in any form of distress, speaks full sentences, Neuro: AAOX3, moves all limbs spontaneously, no focal deficits, no speech abnormality or facial asymmetry HEENT:, Moist mucosa, no cyanosis, KAMAR Chest: CTAB, no wheezes, no rhonchi, no stridor Heart: S1, S2,no m/g/r Abdomen: Soft, not tender, no palpably enlarged organs Extremities: no pedal edema, pulses present and equal bilaterally. Left AVF thrill Internal Medicine: Result - Labs CBC & Chem 7: 06/06/16 04:50 06/06/16 04:50 Labs: Short CBC 06/06/16 Range/Units 04:50 WBC 7.3 (4.3-11.1) K/mcL Hgb 12.3 L (12.9-16.9) g/dL Hct 37.1 L (37.5-50.1) % Plt Count 129 L (140-400) K/mcL Neutrophils # 5.2 (1.6-8.9) K/mcL BMP 06/05/16 06/06/16 23:50 04:50 Sodium 137 Potassium 5.6 H 5.8 H Chloride 94 L Carbon Dioxide 21 BUN 32 H Creatinine 10.34 H Glucose 109 H Calcium 9.5 Cardiac Enzymes 06/05/16 Range/Units 23:50 Troponin I 0.34 H* (0-0.03) ng/mL - ABG Interpretation ABG results: PT/INR, D-dimer PT 19.8 Seconds (9.4-12.1) H 06/05/16 16:30 D-Dimer 2322 ng/mLFEU (0-500) H 06/05/16 10:20 - VTE Documentation of Mechanical Device: Graduated compression elastic hosiery Consult Discharge Plan - Plan Referrals: Dylon Medeiros DO [Primary Care Provider] - Palmer Burton DO [Resident] - (SENT WEB REQUES TO FOR A FOLLOW UP APPOINTMENT ON 06-06-16 @ [id number])
--- NOTE | 2016-06-06 13:18 | Pre-Sedation Evaluation ---
Pre-sedation evaluation - Pre-sedation checklist Date of procedure: 06/06/16 Procedure: HEART CATH Recent Vitals: Last Vital Signs Temp 97.8 F 06/06/16 10:00 Pulse 104 06/06/16 11:56 Resp 18 06/06/16 10:00 BP 142/98 06/06/16 12:45 Pulse Ox 97 06/06/16 07:15 H&P (including ROS) documented in medical record: Yes Previous reaction to sedatives/anesthetics: No Dietary Status: NPO after Midnight Airway Assessment: Patient can open mouth completely, TMJ function normal, Micrognathia (under-bite, receding chin) absent, Neck with adequate range of motion Dentition: No loose teeth or bridges Possible difficult airway: No ASA Classification *see protocol: CLASS II-Mild systemic disease Plan of Care: Pt appropriate candidate for procedure/moderate/conscious sedation , Risks/benefits of procedure/sedation discussed w/ patient/family
--- NOTE | 2016-06-06 13:27 | ECHO - Doppler Report ---
Echocardiogram Name: Dexter Manzano Date of Study: 06/06/2016 Date: 1950 Ht: 69.0 in Medical Record#: [id number] Age: 65 Wt: 171.0 lb Gender: Male BSA: 1.93 Order #: [id number] Location: [facility] Room #: 2N02 Reading Physician: Matteo Grady MD, [facility] Airborne Electronics Analyst: [place] RVT Ordering Physician: Tayla Cherry CNP Primary Physician: Dylon Medeiros DO Indications: Arrhythmia Impressions: Borderline dilated left ventricle. Moderate-severe LV systolic dysfunction, LVEF 35%. There is global hypokinesis with regional variations. Mild concentric left ventricular hypertrophy. Dilated right ventricle with moderate RV hypokinesis. Severely dilated left atrium. Severely dilated right atrium. Mild aortic regurgitation. Moderate tricuspid regurgitation. Mild pulmonic regurgitation. Moderate pulmonary hypertension. Estimated RVSP = 55 mmHg. Left Ventricular Wall Motion: Rest Echo Findings The apex, apical inferior, mid inferior, basal inferior, apical anterior, mid anterior, basal anterior, apical septal, mid inferior septal, basal inferior septal, apical lateral, mid anterior lateral, basal anterior lateral, mid anterior septal, mid inferior lateral, basal anterior septal and basal inferior lateral guaman were hypokinetic. Findings: Study Quality * Technically adequate exam. ECG Findings * Atrial tachycardia vs atrial flutter. Left Ventricle * Borderline dilated left ventricle. * Moderate-severe LV systolic dysfunction, LVEF 35%. There is global hypokinesis with regional variations. * Mild concentric left ventricular hypertrophy. * Indeterminate diastolic function. Right Ventricle * Dilated right ventricle with moderate RV hypokinesis. Left Atrium * Severely dilated left atrium. Right Atrium * Severely dilated right atrium. Aorta * Normally sized aortic root. Pericardium * There is no pericardial effusion present. IVC * The IVC is dilated. * < 50% respiratory change. Aortic Valve * Trileaflet aortic valve. * Moderately sclerotic aortic valve leaflets. * No aortic stenosis. * Mild aortic regurgitation. Mitral Valve * Moderate mitral annular calcification * No mitral stenosis. * Trace mitral regurgitation. Tricuspid Valve * Normal tricuspid valve structure. * No tricuspid stenosis. * Moderate tricuspid regurgitation. * Moderate pulmonary hypertension. Estimated RVSP = 55 mmHg. Pulmonic Valve * Pulmonic valve not well visualized. * No pulmonic stenosis. * Mild pulmonic regurgitation. History Hypertension Diabetes Hypercholesteremia Family History of CAD History of CAD/PTCA Congestive Heart Failure 08/06/14 a Previous Echo was performed. Measurements: BP: 126/ 73 2D Normal Values RVIDd: 4.50 cm IVSd: 1.20 cm 0.6 - 1.0 cm LVIDd: 5.90 cm 3.7 - 5.6 cm LVPWd: 1.20 cm 0.6 - 1.1 cm LVIDs: 5.20 cm 1.5 - 3.6 cm AO: 3.50 cm < 4.0 cm LVOT Diam: 2.00 cm LA volume: 97 Tricuspid Valve TV Regurg Peak Grad: 40.00mmHg TV Regurg Peak Pancho: 3.15m/sec Updated by Matteo Grady MD, [facility] on 06/06/2016 1:23:08 PM electronically signed on 06/06/2016 1:23:52 PM with status of Final Wall Motion Sullivan: 1=Normal, 2=Hypokinesis, 3=Akinesis, 4=Dyskinesis, 5=Aneurysmal, 6=Hyperkinetic, X=Not Visualized (Blank)=Missing
[2016-06-06] MEDS: Isosorbide MONOnitrate (24 HR) 30 MG TAB.ER.24H PO SCH (15:09)
--- NOTE | 2016-06-06 15:52 | Electrocardiograph Report ---
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
--- NOTE | 2016-06-06 15:52 | Electrocardiograph Report ---
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
--- NOTE | 2016-06-06 17:02 | Invasive Diagnostic Lab Proc ---
Name: Dexter Manzano Date of Study: 06/06/2016 Date: 1950 Ht: 68.9in Medical Record#: [id number] Age: 65 Wt: 171.96lb Gender: Male BSA: 1.94 Order #: [id number] BMI: 25.47 Physicians Procedure Physician: Scarlet Mejias MD, FACC Referring MD: Referring MD: Staff Name Position Time In Kelly Pineda RT (R) Scrub 04:04 PM Patsy Amador RN Video Photographer 04:04 PM Soledad Martin RT (R) Monitor 04:04 PM Tianna Edmond RN Nurse 04:07 PM Indications Indication Non-Stemi V Tach Procedures Performed Procedure L HRT ARTERY/VENTRICLE ANGIO Pre-Procedure Checklist Informed consent is complete signed and on chart. H\\T\\P is on chart. ID band is on and ID verified with patient. Patient NPO for procedure The procedure was described for the patient and questions were answered. ECG is on chart. Plan of Care Patient will tolerate the procedure without complications. Adequate level of comfort will be maintained. Hemodynamics will remain stable Patient will recover from procedure without complications. Respiratory function will be maintained. Cardiac rhythm will remain stable. Patient temperature will be maintained. Patient and/or family have verbalized understanding of the procedure. Patient Education Intravenous Access Time IV Size Location DC'd Fluid/Drip Rate Units RN 18g 1 1/4" Peripheral-Lock On Arrival Rt Arm 0.9NaCl mg/hr 18g 1 1/4" Patent On Arrival Rt Arm Allergies No Known Allergies Vital Signs Time BP (mmHg) HR (bpm) O2 Sat. RR (bpm) LOC / % 5 = Fully awake and oriented or at pre-proc level 04:06 PM / % 5 = Fully awake and oriented or at pre-proc level 04:06 PM / % 4 = Oriented but drowsy 04:06 PM 128 / 66 103 96 % 29 04:11 PM 135 / 62 102 95 % 13 Procedural Medications Time Medication Dose Units Method Given By 04:05 PM Oxygen 2 L/min nasal cannula Patsy Amador RN 04:12 PM Versed 2 mg Intravenous Patsy Amador RN 04:12 PM Fentanyl 50 mcg Intravenous Patsy Amador RN 04:12 PM Lidocaine 2% 16 ml Subcutaneous Scarlet Mejias MD, FACC 04:14 PM Oxygen 5 L/min nasal cannula Patsy Amador RN 04:15 PM Oxygen 6 L/min nasal cannula Patsy Amador RN ASA Classification: CLASS II- Mild systemic disease (i.e. well-controlled diabetes, hypertension, asthma, cigarette smoking) Kamran Score Preprocedure Postprocedure Activity 2- Moves 4 extremities sustained head lift Activity 2- Moves 4 extremities sustained head lift Circulation 2- SBP +/= 20 points of pre-anesthetic level Circulation 2- SBP +/= 20 points of pre-anesthetic level Consciousness 2- Awake and alert oriented x 3 Consciousness 2- Awake and alert oriented x 3 O2 Saturation 2- Able to maintain O2 satruation of 92% on room air O2 Saturation 2- Able to maintain O2 satruation of 92% on room air Respiratory 2- Able to deep breathe and cough well Respiratory 2- Able to deep breathe and cough well Total Score 10 Total Score 10 Contrast Agent: Isovue Diagnostic Contrast: 91 ml Total Contrast: 91 ml Fluoro Dose: 417 mGy Procedure Log Time Note Enter By 12:00 PM CathStat 04:04 PM 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 04:05 PM IV Supplies used: J loop Angio Cath. [facility] 04:05 PM Case Delayed No [facility] 04:05 PM Hair removed from procedure site in procedure lab using clippers. Bilateral groin prepped with Chloraprep by Tianna Edmond RN, safety strap applied then patient was draped. Skin intact. [facility] 04:05 PM Physician arrived 16:05 [facility] 04:05 PM ASA Class CLASS II- Mild systemic disease (i.e. well-controlled diabetes, hypertension, asthma, cigarette smoking) [facility] 04:05 PM Meet and greet completed [facility] 04:05 PM Sign in performed according to hospital policy. [facility] 04:05 PM Procedure start 16:05 [facility] 04:05 PM Time: 16:05 Oxygen on at 2 L/min per nasal cannula by Patsy Amador RN 04:06 PM Time: 16:06 Patient comfortable and pain free: Yes [facility] 04:06 PM Vitals capture started with the following parameters, Patient=Adult, Interval=5 min, Initial Rwxhgkvz=140 mmHg, Deflation Rate=5 mmHg, Cuff placed on Left Arm 04:06 PM Time: 16:06LOC: 5 = Fully awake and oriented or at pre-proc level [facility] 04:06 PM Recorded ECG: SO=196 Condition=Condition 1 04:06 PM Clinical Presentation: [facility] PM IL=282 bpm, RSKX=639/66 mmhg, SpO2=96.0 %, Resp=29 B/min, Comment=NSR 04:07 PM Tianna Edmond RN Position: Nurse [facility] in: 16:07 [facility] PM Pressure channel 1 zeroed. 04:11 PM QR=107 bpm, SLAS=826/62 mmhg, SpO2=95.0 %, Resp=13 B/min, Comment=NSR 04:12 PM Time: 16:12 Versed 2 mg Intravenous Given by Patsy Amador RN 04:12 PM Time: 16:12 Fentanyl 50 mcg Intravenous Given by Patsy Amador RN 04:12 PM Time out performed according to hospital policy [facility] 04[facility]12 PM Time: 16:12 16 ml Lidocaine 2% to right groin Subcutaneous Given by Scarlet Mejias MD, [facility] 04:12 PM Access obtained by percutaneous puncture. 5Fr 10cm Terumo [place] sheath placed in right Femoral artery. [id number] dspell 04:13 PM 5Fr FL 4 catheter inserted over the wire [facility] dspeliana 04:13 PM 0.035 145cm Navilyst 3mmJ wire [id number] dspeliana 04:14 PM Time: 16:14 Oxygen on at 5 L/min per nasal cannula by Patsy Amador RN 04:14 PM [facility]atheter [facility] 04:14 PM 5Fr FL5 catheter inserted over the wire [id number] dspell 04:15 PM Time: 16:15 Oxygen on at 6 L/min per nasal cannula by Patsy Amador RN dspell 04:16 PM LCA angiography performed in multiple views. dspell 04:17 PM Recorded Pressure: Ao, WF=593, Condition=Condition 1 (Aorta) Ao 113/94/104 04:17 PM Catheter removed dspell 04:17 PM 5Fr FR 4 catheter inserted over the wire [facility] dspell 04:18 PM Vitals capture stopped. 04:18 PM RCA angiography performed in multiple views. dspell 04:19 PM Recorded Pressure: Ao, HR=99, Condition=Condition 1 (Aorta) Ao 107/89/98 04:20 PM Coronary Dominance: right dspell 04:20 PM Catheter removed dspell 04:20 PM 5Fr Pigtail catheter inserted over the wire [facility] dspell 04:20 PM Catheter selectively placed in left ventricle dspell 04:20 PM Bolus angiogram of left Ventricle complete: 8 ml/sec for a total of 24 mls dspell:21 PM Time: 16:06 Patient comfortable and pain free: Yes dspell:21 PM Time: 16:06LOC: 4 = Oriented but drowsy dspell 04:22 PM Pressure channel 1 zeroed. 04:22 PM Recorded Pressure: LV, HR=97, Condition=Condition 1 (Left Ventricle) LV 81/19/26 04:22 PM Recorded Pressure: LV, Ao, HR=97, Condition=Condition 1 (Left Ventricle) LV 81/28/35, (Aorta) Ao 88/69/80 04:23 PM Catheter removed dspell:24 PM Bolus angiogram of right Femoral complete: 4 ml/sec for a total of 7 mls dspell 04:24 PM Catheter removed dspell 04:25 PM Procedure completed at 16:25 dspellman 04:27 PM Sign out completed: Radiation Dose 416.51 mGy Fluoro Time: 4.1 Isovue 370 - 200ml contrast 91 ml given by Scarlet Mejias MD, [facility]. Complications: NoneCardiac Rehab Consult needed: YesConfirmed administered medications: Yes dspell 04:27 PM Isovue 370 - 200ml,1 Bottle(s) used. dspell 04:28 PM Arterial sheath pulled, Mynx closure device used and was Successful [id number] S/N. dspellman 04:29 PM Post ECG Sinus Tachycardia dspellman 04:30 PM NIBP STAT measurement started. 04:32 PM Vitals capture stopped. 04:33 PM Post Blood Pressure 107/89 dspellman 04:35 PM Lesion found in Proximal LAD. Pre Stenosis: 30 Pre DHARMESH Flow: dspellman 04:35 PM Lesion found in Distal LAD. Pre Stenosis: 30 Pre DHARMESH Flow: dspellman 04:35 PM Lesion found in LMCA. Pre Stenosis: 15 Pre DHARMESH Flow: dspellman 04:36 PM Lesion found in Proximal Circumflex. Pre Stenosis: 30 Pre DHARMESH Flow: dspellman 04:39 PM Lesion found in Ramus. Pre Stenosis: 20 Pre DHARMESH Flow: dspellman 04:39 PM Lesion found in Proximal RCA. Pre Stenosis: 25 Pre DHARMESH Flow: dspellman 04:39 PM Lesion found in Mid RCA. Pre Stenosis: 20 Pre DHARMESH Flow: dspellman 04:40 PM Lesion found in Distal RCA. Pre Stenosis: 20 Pre DHARMESH Flow: dspellman 04:43 PM Report given to Malini MENG Pt taken to 2N Room #2. 16:43 dspellman 04:43 PM Site status No bleeding/hematoma - Rt Groin as reported by Kelly Pineda RT (R) at 16:43 dspellman 04:43 PM Opsite applied dspellman 04:43 PM Delay to floor No dspellman 04:43 PM Patient out of room: 16:43 dspellman 04:43 PM Family placed in none available. dspellman 04:43 PM Complications: None dspellman 04:44 PM Fluoro Time: 4.1 dspellman 04:44 PM Isovue 370 - 200ml contrast 91 ml given by Scarlet Mejias MD, [facility]. dspellman 04:44 PM Radiation Dose 416.51 mGy dspellman 04:44 PM Information taught Cardiac Cath and Mynx dspellman 04:44 PM Education needs Procedure, Plan of Care, and Responsibilities of Patient in Care dspellman 04:45 PM Learning barriers :None dspellman 04:45 PM Education Methods Verbal dspellman 04:45 PM Education evaluation Able to repeat information dspellman Complications Complication None None Hemodynamics Pressures Site Systolic/A Wave Diastolic/V Wave Mean AO 113 94 104 AO 107 89 98 LV 81 19 26 LV 81 28 35 AO 88 69 80 Post Procedure Information Blood Pressure: 107/89 mmHg Rhythm: Sinus Tachycardia Post procedural instructions were given Closure Device Time Device Success/Fail 06/06/2016 4:45:00 PM MynxGrip Successful Site Checks Time Location Status Staff Sheath In? Note 04:43 PM Rt Groin No bleeding/hematoma Kelly Pineda RT (R) Pulses Time Site Pre-Procedure Post-Procedure Note Bilateral DP \\T\\ PT 2+ Bilateral radial 2+ Updated by Tianna Edmond RN on 06/06/2016 4:52:11 PM Soledad Martin, RT electronically signed on 06/06/2016 4:56:39 PM with status of Final
--- NOTE | 2016-06-06 17:09 | Invasive Diagnostic Lab ---
Name: Dexter Manzano Date of Study: 06/06/2016 Date: 1950 Ht: 175.0 cm /68.9 in Medical Record#: [id number] Age: 65 Wt: 78. kg / 171.96 lb Account/Order#: [id number] Gender: Male BSA: 1.94 Order #: [id number] Fluoro Dose: 417 mGy BMI: 25.47 Procedure Physician: Scarlet Mejias MD, FACC Referring MD: Referring MD: Procedures Performed: LEFT HEART CATH Indications: Non-Stemi, V Tach Impressions: Double vessel coronary artery disease. There is moderate LV Dysfunction EF 35% Stents placed from a prior procedure in the Mid LAD and mid RCA are patent. Recommendations: Optimal medical therapy of patient's disease. Aggressive risk factor modification. Procedure Access obtained in the right Femoral artery by percutaneous puncture Complications: None, None Contrast: Isovue 91ml Closure Device: MynxGrip Hemodynamics: Pressures Site Systolic/ A Wave Diastolic/ V Wave End Diastolic/ Mean HR AO 113 94 104 101 AO 107 89 98 99 LV 81 19 26 97 LV 81 28 35 97 AO 88 69 80 97 LV Ventriculography Ejection Method: LV Gram Ejection Fraction: 35% Wall Motion: SMITH Anterobasal Moderate Hypokinesis Anterolateral Moderate Hypokinesis Apical: Moderate Hypokinesis Inferoapical Moderate Hypokinesis Inferobasal Moderate Hypokinesis Coronary Dominance: right Lesion Findings/Interventions * Left Main Coronary Artery There is a 15% stenosis in the LMCA. The lesion has moderate calcification noted. * Left Anterior Descending There is a 30% stenosis in the Proximal LAD. The lesion has severe calcification noted. Previously stented mid LAD patent. There is a 30% stenosis in the Distal LAD. The lesion has severe calcification noted. * Circumflex There is a 30% stenosis in the Proximal Circumflex. The lesion has moderate calcification noted. * Ramus There is a 20% stenosis in the Ramus. The lesion has moderate calcification noted. * Right Coronary Artery There is a 25% stenosis in the Proximal RCA. The lesion has moderate calcification noted. There is a 20% instent restenosis in the Mid RCA. There is a 20% stenosis in the Distal RCA. Updated by Tianna Edmond RN on 06/06/2016 4:51:34 PM Scarlet Mejias MD, FACC electronically signed on 06/06/2016 5:04:15 PM with status of Final
[2016-06-06] MEDS: traZODone 50 MG TABLET PO SCH (22:00)
[2016-06-07] MEDS ORDERED: *HR* Promethazine 25 MG/ML VIAL IVP ONE (00:10)
[2016-06-07 04:49] LABS: Basophils % 0.4 %; Eosinophils % 0.1 %; Hematocrit 37.6 % (37.5-50.1); Hemoglobin 12.4 g/dL (12.9-16.9); Immature Granulocytes % 0.3 % (0-4); Lymphocytes % 14.8 %; Mean Corpuscular Hemoglobin 30.7 pg (28.0-33.3); Mean Corpuscular Volume 93.1 fL (83.0-100.0); Mean Platelet Volume 11.5 fL (9.4-12.4); Monocytes # 0.6 K/mcL (0.0-1.3); Monocytes % 8.8 %; Neutrophils # 5.1 K/mcL (1.6-8.9); Nucleated Red Blood Cells 0.3 /100 WBC (0); Platelet Count 163 K/mcL (140-400); Red Blood Count 4.04 M/mcL (4.19-5.50); Red Cell Distribution Width 14.5 % (11.5-14.5); Segmented Neutrophils % 75.6 %
[2016-06-07 05:03] LABS: Calcium 8.1 mg/dL (8.6-10.8)
[2016-06-07 05:11] LABS: Potassium 4.6 mEq/L (3.5-4.5)
[2016-06-07] MEDS ORDERED: 0.9 % Sodium Chloride 250 ML IVC ONE (07:55)
[2016-06-07] MEDS: Amiodarone Premix 360 MG/200 ML BAG IVC SCH (08:55)
[2016-06-07] MEDS: 0.9 % Sodium Chloride 250 ML IVC PRN ×3 (08:55→16:35)
[2016-06-07] MEDS: *HR* Heparin 5,000 UNIT/ML VIAL IVP PRN (09:03)
--- NOTE | 2016-06-07 09:50 | Internal Med Progress Note ---
Date of Encounter: 06/07/16 Time of Encounter: 09:50 - Assessment and plan (1) Atrial flutter with rapid ventricular response Current Visit: Yes Status: Acute Assessment and plan: Admitting ECG 06/05/16 1016 with atrial flutter, controlled now Awaop5jepr score 3, on heparin drip, will discontinue, Start eliquis Continue amiodarone drip, transition to po HOld toprol and resume when BP improves Hold isosorbide, and resume at lower dose when BP improves (2) Ventricular tachycardia Current Visit: Yes Status: Acute Assessment and plan: Aborted with amiodarone, on amiodarone drip, continue Cardiology following (3) Ischemic cardiomyopathy Current Visit: Yes Status: Chronic Assessment and plan: Known ICMP with EF 40% Continue current meds ECHO findings noted for worsening EF, EF 35%, Severely dilated LA/RA/LV,RV, Pulm HTN (4) End-stage renal disease Current Visit: Yes Status: Chronic Assessment and plan: Continue HD as scheduled Renal following (5) Hyperkalemia Current Visit: Yes Status: Acute Assessment and plan: Improved. Renal diet. HD as scheduled (6) Diabetes mellitus Current Visit: Yes Status: Chronic Assessment and plan: Controlled A1C 5.0 Continue sliding scale insulin Qualifiers: Diabetes mellitus type: type 2 Diabetes mellitus complication status: with kidney complications Diabetes mellitus complication detail: with chronic kidney disease Diabetes mellitus [facility] insulin use: without terminal system operator use Chronic kidney disease stage: on chronic dialysis Qualified Code(s): E11.22 - Type 2 diabetes mellitus with diabetic chronic kidney disease; N18.6 - End stage renal disease; Z99.2 - Dependence on renal dialysis (7) CHF (congestive heart failure) Current Visit: Yes Status: Chronic Assessment and plan: Chronic, systolic, not in exacerbation Mgt as in ICMP Qualifiers: Congestive heart failure type: systolic Congestive heart failure chronicity : chronic Qualified Code(s): I50.22 - Chronic systolic (congestive) heart failure (8) HTN (hypertension) Current Visit: Yes Status: Chronic Assessment and plan: As in CHF/Afib Qualifiers: Hypertension type: essential hypertension Qualified Code(s): I10 - Essential (primary) hypertension (9) Hyperlipidemia Current Visit: Yes Status: Chronic Qualifiers: Hyperlipidemia type: unspecified Qualified Code(s): E78.5 - Hyperlipidemia , unspecified (10) CAD (coronary artery disease) Current Visit: Yes Status: Chronic Assessment and plan: Stable LHC noted for 2 vessel disease, patent LAD/RCA stent Continue ASA, Plavix, BB Qualifiers: Coronary Disease-Associated Artery/Lesion type: [place] artery [place] vs. transplanted heart: [place] heart Associated angina: without angina Qualified Code(s): I25.10 - Atherosclerotic heart disease of [place] coronary artery without angina pectoris (11) ESRD (end stage renal disease) on dialysis Current Visit: Yes Status: Chronic (12) Elevated troponin Current Visit: Yes Status: Chronic Assessment and plan: Chronic, possibly from demand in setting of ESRD - Subjective Interval history: Seen and evaluated at bedside 65 Y/O M admitted for Afib with RVR, shortly into admission, developed Vtach, he has a hx of ESRD on HD, CHF, CAD, GERD He is status post C yesterday which revealed poor systolic function with ejection fraction 35% ,double vessel coronary artery disease and patent LAD and RCA stents. Echocardiogram also done yesterday showed dilated left ventricle LVEF 35%, global hypokinesis, severely dilated LA/RA pulmonary hypertension. Patient noted to be hypotensive this morning, mean arterial pressure persistently greater than 70. Patient seen at bedside he denies new complaints. Right groin access stable without bleeding. Heart rate has been controlled on current medications We will hold isosorbide, metoprolol and resume at lower doses and blood pressure improves. We will give gentle boluses. At this point I believe we may discontinue heparin drip and start po eliquis - Constitutional Vitals: Temp Pulse Resp BP Pulse Ox 97.4 F L 57 16 87/64 98 06/07/16 07:36 06/07/16 08:40 06/07/16 07:36 06/07/16 07:36 06/07/16 07:36 VSS, O2 sat 90-92% on 6L O2 by NC Gen: Not in any form of distress, speaks full sentences, Neuro: AAOX3, moves all limbs spontaneously, no focal deficits, no speech abnormality or facial asymmetry HEENT:, Moist mucosa, no cyanosis, KAMAR Chest: CTAB, no wheezes, no rhonchi, no stridor Heart: S1, S2,no m/g/r Abdomen: Soft, not tender, no palpably enlarged organs Extremities: no pedal edema, pulses present and equal bilaterally. Left AVF thrill. R groin dressing clean and dry General appearance: Present: disheveled, A&O X 3, pleasant, no acute distress Internal Medicine: Result - Labs CBC & Chem 7: 06/07/16 04:18 06/07/16 04:18 Labs: Short CBC 06/07/16 Range/Units 04:18 WBC 6.7 (4.3-11.1) K/mcL Hgb 12.4 L (12.9-16.9) g/dL Hct 37.6 (37.5-50.1) % Plt Count 163 (140-400) K/mcL Neutrophils # 5.1 (1.6-8.9) K/mcL BMP 06/07/16 04:18 Sodium 133 L Potassium 4.6 H D Chloride 92 L Carbon Dioxide 26 BUN 28 H Creatinine 7.35 H Glucose 123 H Calcium 8.1 L - ABG Interpretation ABG results: PT/INR, D-dimer PT 19.8 Seconds (9.4-12.1) H 06/05/16 16:30 D-Dimer 2322 ng/mLFEU (0-500) H 06/05/16 10:20 - VTE Documentation of Mechanical Device: Graduated compression elastic hosiery Consult Discharge Plan - Plan Referrals: Dylon Medeiros DO [Primary Care Provider] - Palmer Burton DO [Resident] - (SENT WEB REQUES TO FOR A FOLLOW UP APPOINTMENT ON 06-06-16 @ 2061)
--- NOTE | 2016-06-07 09:51 | Internal Med Progress Note ---
Date of Encounter: 06/07/16 Time of Encounter: 09:51 - Assessment and plan (1) Atrial flutter with rapid ventricular response Current Visit: Yes Status: Acute (2) Ventricular tachycardia Current Visit: Yes Status: Acute (3) Ischemic cardiomyopathy Current Visit: Yes Status: Chronic (4) End-stage renal disease Current Visit: Yes Status: Chronic (5) Hyperkalemia Current Visit: Yes Status: Acute (6) Diabetes mellitus Current Visit: Yes Status: Chronic Qualifiers: Diabetes mellitus type: type 2 Diabetes mellitus complication status: with kidney complications Diabetes mellitus complication detail: with chronic kidney disease Diabetes mellitus group home insulin use: without powder core tester use Chronic kidney disease stage: on chronic dialysis Qualified Code(s): E11.22 - Type 2 diabetes mellitus with diabetic chronic kidney disease; N18.6 - End stage renal disease; Z99.2 - Dependence on renal dialysis (7) CHF (congestive heart failure) Current Visit: Yes Status: Chronic Qualifiers: Congestive heart failure type: systolic Congestive heart failure chronicity : chronic Qualified Code(s): I50.22 - Chronic systolic (congestive) heart failure (8) HTN (hypertension) Current Visit: Yes Status: Chronic Qualifiers: Hypertension type: essential hypertension Qualified Code(s): I10 - Essential (primary) hypertension (9) Hyperlipidemia Current Visit: Yes Status: Chronic Qualifiers: Hyperlipidemia type: unspecified Qualified Code(s): E78.5 - Hyperlipidemia , unspecified (10) CAD (coronary artery disease) Current Visit: Yes Status: Chronic Qualifiers: Coronary Disease-Associated Artery/Lesion type: [place] artery [place] vs. transplanted heart: [place] heart Associated angina: without angina Qualified Code(s): I25.10 - Atherosclerotic heart disease of [place] coronary artery without angina pectoris (11) ESRD (end stage renal disease) on dialysis Current Visit: Yes Status: Chronic (12) Elevated troponin Current Visit: Yes Status: Chronic - Subjective Interval history: Seen and evaluated during HD 65 Y/O M, pleasant Admitted for Afib with RVR, shortly into admission, developed Vtach, he has a hx of ESRD on HD, CHF, CAD, GERD For [facility] today Denies new complains - Constitutional Vitals: Temp Pulse Resp BP Pulse Ox 97.4 F L 57 16 87/64 98 06/07/16 07:36 06/07/16 08:40 06/07/16 07:36 06/07/16 07:36 06/07/16 07:36 General appearance: Present: disheveled, A&O X 3, pleasant, no acute distress Internal Medicine: Result - Labs CBC & Chem 7: 06/07/16 04:18 06/07/16 04:18 Labs: Short CBC 06/07/16 Range/Units 04:18 WBC 6.7 (4.3-11.1) K/mcL Hgb 12.4 L (12.9-16.9) g/dL Hct 37.6 (37.5-50.1) % Plt Count 163 (140-400) K/mcL Neutrophils # 5.1 (1.6-8.9) K/mcL BMP 06/07/16 04:18 Sodium 133 L Potassium 4.6 H D Chloride 92 L Carbon Dioxide 26 BUN 28 H Creatinine 7.35 H Glucose 123 H Calcium 8.1 L - ABG Interpretation ABG results: PT/INR, D-dimer PT 19.8 Seconds (9.4-12.1) H 06/05/16 16:30 D-Dimer 2322 ng/mLFEU (0-500) H 06/05/16 10:20 - VTE Documentation of Mechanical Device: Graduated compression elastic hosiery Consult Discharge Plan - Plan Referrals: Dylon Medeiros DO [Primary Care Provider] - Palmer Burton DO [Resident] - (SENT WEB REQUES TO FOR A FOLLOW UP APPOINTMENT ON 06-06-16 @ [id number])
[2016-06-07] MEDS ORDERED: APIXABAN 5 MG TABLET PO SCH (10:45)
--- NOTE | 2016-06-07 10:56 | Cardiology Consult Note ---
Date of Encounter: 06/07/16 Time of Encounter: 10:30 Assessment and Plan (1) Atrial flutter with rapid ventricular response Current Visit: Yes Status: Acute Per EP: -ECG 06/05/16 1016 with atrial flutter, HR 215. ECG reviewed with Dr.John Mejias. Rhythm did not respond to adenosine in ER. -Patient with known history of atrial fibrillation, not previously on anticoagualtion. -[id number] score 3, recommend senior care anticoagulation. Will re-evaluate after ICD placement on 06/08/16. -Patient started on amiodarone drip during rapid response. -Echo as below. -Heparin drip discontinued and amiodarone drip discontinued. Patient started on amiodarone 200mg po BID. -Will decide senior care anticoagulation after ICD placement. Per discussion with Dr.John Mejias no anticoagulation until after ICD placement, probably coumadin after ICD placement due to ESRD. Eliquis ordered by primary service. Order stopped and will re-address after ICD. -Patient states understanding and agrees with plan. (2) Ventricular tachycardia Current Visit: Yes Status: Acute Per EP: -Patient with ventricular tachycardia and rapid response called. Telemetry strips reviewed with and ventricular tachycardia noted with longest run noted to be about 45seconds. Patient was alert and oriented during episodes and all other vital signs stable. Patient did however feel increasingly short of breath during episode. -Was given cardizem 10mg IVP per primary service. Rhythm returned to atrial flutter. -Amiodarone 150mg IV bolus given and amiodarone drip was started. Heparin drip was started. Heparin drip now discontinued and amiodarone converted to PO. -Of note, patient is also on lexapro. COncern for QTC prolongation with amiodarone. Previous QTC 452. -Echo 06/06/16 with LVEF 35%, global hypokinesis with regional variations, borderline dilated left ventricle, mild concentric left ventricular hypertrophy , dilated right ventricle with moderate RV hypokinesis, severely dilated left atrium, severely dilated right atrium, mild aortic regurgitation, moderate tricuspid regurgitation, mild pulmonic regurgitation, moderate pulmonary hypertension, all guaman hypokinetic. -LHC 06/06/16 with 15% stenosis left main, 30% proximal LAD, 30% distal LAD, Patent mid LAD stent, 30% proximal circ, 20% ramus, 25% proximal RCA, 20% instent re-stenosis mid RCA, 20% distal RCA. -On toprol 100mg daily. -Electrolytes within normal limits. -Discussed and reviewed with Dr.John Mejias who recommends ICD placement prior to discharge. -Will order ECG to assess for QTC prolongation. Can consider discontinuation of lexapro. Will continue to monitor. -PLan ICD placement tomorrow. Risk versus benefits explained to patient. Patient states understanding and agrees with plan. (3) Elevated troponin Current Visit: Yes Status: Chronic Per EP: -Elevated troponin in the setting of atrial flutter and ventricular tachycardia. -ON asa, statin, plavix, beta ramon, imdur. -Cath 10/01/15 with left main normal, proximal LAD 30% stenosis, patent mid LAD stent, distal LAD 40%, 30% circumflex, RCA with patent stent. -Cath 06/06/16, as above. No intervention needed. -Per review of records, patient chronically has elevated troponin. -Patient denies chest pain. -Patient admits to increased shortness of breath. -No cardiac rehab warranted, as patient is not a NSTEMI. (4) End-stage renal disease Current Visit: Yes Status: Chronic Per EP: -ESRD on hemodialysis. -Nephrology consulted. -Management per primary and nephrology services. (5) Ischemic cardiomyopathy Current Visit: Yes Status: Chronic Per EP: -Known ischemic cardiomyopathy. -EF 40% per nuclear stress test 2014. -Echo 06/07/16 with LVEF 35%. -Cath 2015 with LVEF 40%. -On asa, statin, beta ramon. Was on barney inhibitor in outpatient setting. BARNEY inhibitor was discontinued per primary service, maybe due to hypotension. BPs 80s systolic. -Can consider restarting barney inhibitor prior to discharge, as BP will allow. -PLan for ICD placement tomorrow. Discussion w patient/family: The assessment and plan as outlined above was discussed with the patient who expressed understanding and agreement. All questions were answered. Thank you for involving us in the care of your patient. Please call with any questions. Discussed and reviewed with . History of Present Illness Consult date: 06/07/16 Requesting physician: Tacos Vanessa Consult reason: V.tach Chief complaint: shortness of breath. History of present illness: Electrophysiology Consult: Mr. Manzano is a 65 year old male with a relevant past medical history of DM, ESRD on HD, HTN, Prostate CA, CAD s/p stenting, Ischemic cardiomyopathy. Patient presented to dialysis, but was short of breath so he was taken to [facility]. Upon evaluation in ER, patient was noted to be tachycardic, with HRs 200s. Cardiology was consulted. During research into patient's history, a rapid response was called for patient due to ventricular tachycardia. Patient was awake and oriented, however was extremely short of breath. Cardiology responded to rapid response. Patient was given cardizem IV push per primary service and patient returned to atrial flutter rhythm, HR 115. Cardiology recommended amiodarone bolus and was given. Amiodarone drip started. Patient's BPs stable. Patient's electrolytes stable. Patient denies chest pain. Patient states shortness of breath is slightly worse than normal and fatigue is about baseline. Echocardiogram noted with EF 35%. Patient was cathed 06/06/16 with no intervention. EP has been consulted to evaluate for ICD placement due to ischemic cardiomyopathy, EF 35%, and ventricular tachycardia. Past Med Surg Social Fam HX - Past Medical History Attestation: Yes The following information was validated with the patient. Source: patient, old records reviewed Medical history: arthritis, atrial fibrillation, cancer, cardiomyopathy, coronary artery disease, diabetes, dialysis, GERD, hyperlipidemia, hypertension , kidney stones, malignancy, myocardial infarction, renal disease, other Psychiatric history: no psych history - Past Surgical History Surgical History: angioplasty/stent, appendectomy, herniorrhaphy, prostatectomy - Social History Smoking Status: Never smoker Smokeless Tobacco Status: No Alcohol use: none Drug use: none - Family History Father Living Status: Age at : 69 Cause of : [place] Hx Family Cardiac Disorders: Yes Mother Adopted: No Family Member Ethnicity: Non- Living Status: Age at : 67 Cause of : [place] Hx Family Cardiac Disorders: No Hx Family Respiratory Disorders: No Hx Family Cancer: No Hx Family GI Disorders: No Hx Family Endocrine Disorder: No Hx Family Neuromuscular Disorders: No Hx Family Neurologic Disorders: Yes Hx Family HEENT Disorders: No Hx Family Autoimmune Disorders: No Medications and Allergies Allopurinol [Zyloprim] 100 mg PO DAILY 12/21/14 [History] Atorvastatin [Lipitor] 10 mg PO HS 12/21/14 [History] Chlorhexidine Gluconate [Peridex] 30 ml MM BID 12/21/14 [History] Cinacalcet [Sensipar] 60 mg PO DAILY 12/21/14 [History] Clopidogrel Bisulfate [Plavix] 75 mg PO DAILY 12/21/14 [History] Escitalopram [Lexapro] 10 mg PO DAILY 12/21/14 [History] Lisinopril [Zestril] 10 mg PO DAILY 12/21/14 [History] Metoprolol XL (24 HR) Succ [Toprol XL] 100 mg PO DAILY 12/21/14 [History] Nitroglycerin 0.4 mg SL AD PRN 12/21/14 [History] Sevelamer [Renvela] 800 mg PO TIDWM 12/21/14 [History] Sucralfate [Carafate] 10 ml PO BID 12/21/14 [History] TraZODone 100 mg PO HS 12/21/14 [History] Aspirin 325 mg PO DAILY 06/23/15 [History] Gabapentin [Neurontin] 300 mg PO BID #60 capsule 06/25/15 [Rx] Pantoprazole Sodium [Protonix] 40 mg PO DAILY #0 06/25/15 [Rx] Isosorbide MONOnitrate (24 HR) [Imdur] 30 mg PO DAILY #30 tab.er.24h 10/02/15 [ Rx] HYDROcodone/Acet 5/325 mg [[place] 5-325 mg] 1 tab PO Q4H PRN 04/18/16 [History] Allergies No Known Allergies Allergy (Verified 06/05/16 10:14) All Systems Review: A 10-system review of systems was performed and is negative for pertinent findings except as documented above in the HPI. - Cardiovascular Cardiovascular: as per HPI, dyspnea on exertion, irregular heart rhythm Physical Examination Vital Signs, Last 4 Hours Temp Pulse Resp BP Pulse Ox 06/07/16 08:40 57 06/07/16 07:36 97.4 F L 57 16 87/64 98 General: Conversant, No Apparent Distress HEENT: Atraumatic, Normocephaly, Mucus Membranes Moist Neck: No JVD, Normal carotid pulses Cardiac: Reg Rate and Rhythm, Normal S1 and S2, No Murmur Lungs: Normal Breath Sounds, No Wheeze, Rales, Rhonchi Neuro: Alert and responsive, No focal deficits noted Abdomen: Soft, Non-Tender Skin: No rashes noted on visualized skin, Other (Left arm fistula noted. ) Musculoskeletal: No Chest Wall Tenderness Extremities: No Clubbing, No Cyanosis, No Edema, Normal Pulses Results 06/07/16 04:18 06/07/16 04:18 Lab Results Impressions Chest CTA 06/05/16 16:52 IMPRESSION: 1. No evidence of pulmonary embolic disease. 2. Ascending aortic aneurysm at 4.5 cm. Enlarged main pulmonary artery likely indicative of pulmonary hypertension. 3. Cardiomegaly, mild ground-glass opacification at the lung bases, interlobular septal thickening, right pleural effusion, reflux opacification of the IVC and hepatic vein and anasarca all suggesting CHF. 4. Mediastinal nodes, slightly increased in size since the comparison study, likely reactive. D/ / 06/05/2016 19:34:44 Lauro Milligan MD / Tequila Michaud Interpreting Provider: Lauro Milligan MD Active Medications Acetaminophen (Tylenol) 650 mg PO Q6HR PRN PRN Reason: Mild Pain (1-3) Stop: 12/05/16 13:18 Acetaminophen/Hydrocodone Bitart ([place] 5-325 Mg) 1 tab PO Q4H PRN PRN Reason: MODERATE TO SEVERE PAIN 4-10 Stop: 12/05/16 13:20 Allopurinol (Zyloprim) 100 mg PO DAILY [facility] Stop: 12/06/16 09:01 Last Admin: 06/06/16 09:29 Dose: 100 mg Amiodarone HCl (Cordarone) 200 mg PO BID [facility] Stop: 12/07/16 11:01 Apixaban (Eliquis) 2.5 mg PO BID [facility] Stop: 12/07/16 10:46 Aspirin (Aspirin) 81 mg PO DAILY [facility] Stop: 12/07/16 09:01 Atorvastatin Calcium (Lipitor) 10 mg PO HS [facility] Stop: 12/05/16 21:01 Last Admin: 06/06/16 21:59 Dose: 10 mg Cinacalcet (Sensipar) 60 mg PO DAILY [facility] Stop: 12/06/16 09:01 Last Admin: 06/06/16 09:29 Dose: 60 mg Clopidogrel Bisulfate (Plavix) 75 mg PO DAILY [facility] Stop: 12/06/16 09:01 Last Admin: 06/06/16 09:28 Dose: 75 mg Dextrose/Water (Dextrose 50% (Syg)) 25 ml IVP AD PRN PRN Reason: Hypoglycemia Stop: 12/05/16 23:36 Docusate Sodium (Colace) 100 mg PO BID PRN PRN Reason: Constipation Stop: 12/05/16 13:18 Escitalopram Oxalate (Lexapro) 10 mg PO DAILY [facility] Stop: 12/06/16 09:01 Last Admin: 06/06/16 09:29 Dose: 10 mg Gabapentin (Neurontin) 300 mg PO HS [facility] Stop: 12/05/16 21:01 Last Admin: 06/06/16 21:59 Dose: 300 mg Glucagon (Glucagen) 1 mg IM ONCE PRN PRN Reason: Hypoglycemia Stop: 12/05/16 23:36 Glucose (Gluctose) 15 gm PO ONCE PRN PRN Reason: Hypoglycemia Stop: 12/05/16 23:36 Glucose (Gluctose) 30 gm PO ONCE PRN PRN Reason: Hypoglycemia Stop: 12/05/16 23:36 Dextrose (Dextrose 5%) 1,000 mls @ 100 mls/hr IVC .Q10H PRN PRN Reason: HYPOGLYCEMIA Stop: 12/05/16 23:36 Sodium Chloride (0.9 % Sodium Chloride) 250 mls @ 937.5 mls/hr IVC .Q16M PRN PRN Reason: Hypotension Stop: 12/06/16 08:11 Last Admin: 06/07/16 08:55 Dose: 937.5 mls/hr Isosorbide Mononitrate (Imdur) 30 mg PO DAILY [facility] Stop: 12/06/16 09:01 Last Admin: 06/06/16 15:09 Dose: 30 mg Metoprolol Succinate (Toprol Xl) 100 mg PO DAILY [facility] Stop: 12/06/16 09:01 Last Admin: 06/06/16 15:09 Dose: 100 mg Naloxone HCl (Narcan) 0.4 mg IVP Q2MIN PRN PRN Reason: Opioid Reversal Stop: 12/05/16 13:18 Nitroglycerin (Nitroglycerin) 0.4 mg SL AD PRN PRN Reason: Chest Pain Stop: 12/05/16 13:20 Omeprazole (Prilosec) 20 mg PO DAILY [facility] Stop: 12/06/16 09:01 Last Admin: 06/06/16 09:28 Dose: 20 mg Sevelamer HCl (Renvela) 800 mg PO TIDWM [facility] Stop: 12/05/16 17:01 Last Admin: 06/07/16 08:57 Dose: Not Given Sucralfate (Carafate) 1 gm PO BID [facility] Stop: 12/05/16 21:01 Last Admin: 06/06/16 21:59 Dose: Not Given Trazodone HCl (Trazodone) 100 mg PO HS [facility] Stop: 12/05/16 21:01 Last Admin: 06/06/16 22:00 Dose: Not Given Laboratory Tests 06/05/16 06/05/16 06/05/16 10:20 16:30 23:50 Hgb Potassium Creatinine Est GFR ( Amer) Magnesium Troponin I 0.25 H* 0.27 H* 0.34 H* 06/06/16 06/07/16 06/07/16 04:50 04:18 04:18 Hgb 12.4 L Potassium 4.6 H D Creatinine 7.35 H Est GFR ( Amer) 9 L Magnesium 2.1 Troponin I - Imaging and Cardiology Chest Xray: report reviewed Echo: report reviewed Cardiac cath: report reviewed - EKG Interpretation EKG results cardiology: other (Telemetry reviewed with average HR 78, sinus rhythm. Longest pause 1.9 seconds. PVCs noted, 4 couplet PVCs noted. PACs noted. ) Consult Discharge Plan - Plan Referrals: Dylon Medeiros DO [Primary Care Provider] - Palmer Burton DO [Resident] - (SENT WEB REQUES TO FOR A FOLLOW UP APPOINTMENT ON 06-06-16 @ 0235)
[2016-06-07] MEDS ORDERED: *HR* Amiodarone 200 MG TABLET PO SCH (11:00)
[2016-06-07] MEDS ORDERED: Ondansetron 4 MG/2 ML VIAL IVP PRN (11:03)
[2016-06-07] MEDS: Aspirin 81 MG TAB.CHEW PO SCH (11:37)
--- NOTE | 2016-06-07 13:23 | Nephrology Progress Note ---
Date of Encounter: 06/07/16 Time of Encounter: 13:22 - Assessment and Plan (1) End-stage renal disease Current Visit: Yes Status: Chronic The patient had dialysis yesterday. He will undergo dialysis again tomorrow. Plans for an AICD placement have been noted. PTH is 1891. He will continue on Sensipar. (2) NSTEMI (non-ST elevated myocardial infarction) Current Visit: No Status: Acute (3) CAD (coronary artery disease) Current Visit: Yes Status: Chronic Qualifiers: Coronary Disease-Associated Artery/Lesion type: [place] artery [place] vs. transplanted heart: [place] heart Associated angina: without angina Qualified Code(s): I25.10 - Atherosclerotic heart disease of [place] coronary artery without angina pectoris (4) PAF (paroxysmal atrial fibrillation) Current Visit: No Status: Chronic Subjective Interval history: The patient complains of fatigue. He is also complaining of some nausea. He reports that his shortness of breath is improved. Cardiac catheter results of been noted. Ejection fraction is 35%. Blood pressure remains on the low side. Plans for placing an AICD are noted. Patient had dialysis yesterday so he will receive dialysis again tomorrow. Objective - Vital Signs Vital signs: Vital Signs Temp Pulse Resp BP Pulse Ox 06/07/16 11:48 97.6 F 57 16 109/56 90 06/07/16 08:40 57 06/07/16 07:36 97.4 F L 57 16 87/64 98 06/07/16 04:50 98.4 F 79 18 81/65 99 06/07/16 01:19 98.0 F 94 16 107/41 96 06/06/16 19:40 97.2 F L 97 20 109/53 97 06/06/16 18:48 96 18 122/46 96 06/06/16 18:13 97 18 123/44 97 06/06/16 17:45 96 15 116/42 96 06/06/16 17:31 90 17 97/54 96 06/06/16 17:17 98.1 F 79 14 86/46 92 06/06/16 17:13 91 16 93/51 93 06/06/16 16:45 85 16 103/27 93 06/06/16 15:58 97.3 F L 103 17 127/75 99 06/06/16 14:23 103 12 136/33 98 Intake and Output 05/02/17 05/03/17 05/03/17 23:59 07:59 15:59 Intake Total 210.3 / 210.3 209 / 209 Balance 210.3 / 210.3 209 / 209 Intake: IV Fluids 210.3 / 210.3 209 / 209 Amiodarone 360mg/200mL 200 / 200 200 / 200 Drip Premix 360 mg In 200 ml @ 0.5 MG/MIN 16.667 mls/hr IVC CONT [facility] Rx#: [id number] Heparin 25,000 UNIT/500 9 / 9 ML D5W 25,000 unit In 500 ml @ 11.7 UNIT/KG/HR 19. 848 mls/hr IVC .Q24H [facility] Rx#:[id number] Other: Weight 76.4 kg 76.6 kg Blood Glucose* 77 101 87 Patient Weight 06/07/16 23:59 Weight 76.6 kg - General Appearance Exam: Patient is alert. He is in no acute distress. Lung sounds. Heart irregular rate and rhythm. Abdomen is benign. There is no peripheral edema. There is a functioning AV fistula in the left arm. - Lab 06/07/16 04:18 06/07/16 04:18 Most recent lab results Calcium 8.1 mg/dL (8.6-10.8) L 06/07/16 04:18 Phosphorus 3.1 mg/dL (2.3-4.7) 06/06/16 12:35 Magnesium 2.1 mg/dL (1.6-2.6) 06/06/16 04:50 - VTE Documentation of Mechanical Device: Graduated compression elastic hosiery Consult Discharge Plan - Plan Referrals: Dylon Medeiros DO [Primary Care Provider] - Palmer Burton DO [Resident] - (SENT WEB REQUES TO FOR A FOLLOW UP APPOINTMENT ON 06-06-16 @ 1007)
--- NOTE | 2016-06-07 14:57 | Electrocardiograph Report ---
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
--- NOTE | 2016-06-07 16:17 | Event Note ---
Date of Encounter: 06/07/16 Time of Encounter: 16:14 - Cardiology Event Note ECG reviewed from today with QTC noted to be 559. Previous ECG with QTC 425. Amiodarone and trazadone placed on hold due to possible QTC prolongation. Discusssed and reviewed with . Further evaluation of amiodarone therapy to be determined pending repeat ECG tomorrow. Of note, patient is to received ICD tomorrow.
[2016-06-07] MEDS ORDERED: D10% in Water 500 ML IVC ONE (16:46)
[2016-06-07] MEDS: D10% in Water 500 ML IVC SCH (17:02)
[2016-06-07] MEDS: 0.9 % Sodium Chloride 1,000 ML IVC SCH (17:07)
[2016-06-07] MEDS: Gabapentin 300 MG CAPSULE PO SCH (23:10)
[2016-06-08] MEDS: D10% in Water 500 ML IVC SCH ×2 (03:11→11:55)
[2016-06-08] MEDS: 0.9 % Sodium Chloride 1,000 ML IVC SCH ×2 (06:18→14:11)
[2016-06-08 06:32] LABS: Basophils # 0.1 K/mcL (0.0-0.2); Basophils % 0.7 %; Eosinophils # 0.1 K/mcL (0.0-0.6); Eosinophils % 0.6 %; Hematocrit 40.6 % (37.5-50.1); Hemoglobin 13.6 g/dL (12.9-16.9); Immature Granulocytes % 0.6 % (0-4); Lymphocytes # 1.8 K/mcL (0.6-4.6); Lymphocytes % 21.5 %; Mean Corpuscular HGB Conc 33.5 g/dL (31.6-35.5); Mean Corpuscular Hemoglobin 30.9 pg (28.0-33.3); Mean Corpuscular Volume 92.3 fL (83.0-100.0); Mean Platelet Volume 11.9 fL (9.4-12.4); Monocytes # 1.2 K/mcL (0.0-1.3); Monocytes % 13.8 %; Neutrophils # 5.3 K/mcL (1.6-8.9); Nucleated Red Blood Cells 1.4 /100 WBC (0); Platelet Count 161 K/mcL (140-400); Red Cell Distribution Width 14.7 % (11.5-14.5); Segmented Neutrophils % 62.8 %
[2016-06-08 06:58] LABS: Albumin 2.4 g/dL (3.5-5.0); Calcium 7.1 mg/dL (8.6-10.8); Globulin 2.3 g/dL (2.4-3.5); Potassium 4.2 mEq/L (3.5-4.5); Total Protein 4.7 g/dL (6.0-8.3)
[2016-06-08] MEDS ORDERED: ceFAZolin 2,000 MG in D5% in Water 100 ML IVPB ONE (08:22)
[2016-06-08] MEDS ORDERED: ceFAZolin 2,000 MG in D5% in Water (Mini-Bag+) 100 ML IVPB ONE (08:38)
[2016-06-08] MEDS ORDERED: 0.9 % Sodium Chloride 250 ML IVC PRN (08:44)
[2016-06-08] MEDS ORDERED: 0.9 % Sodium Chloride 1,000 ML PRIME SCH (08:45)
--- NOTE | 2016-06-08 08:50 | Internal Med Progress Note ---
Date of Encounter: 06/08/16 Time of Encounter: 08:48 - Assessment and plan (1) Atrial flutter with rapid ventricular response Current Visit: Yes Status: Acute Assessment and plan: Admitting ECG 06/05/16 1016 with atrial flutter, controlled now [id number] score 3, on heparin drip, will discontinue, Start eliquis Continue amiodarone drip, transition to po HOld toprol and resume when BP improves Hold isosorbide, and resume at lower dose when BP improves (2) Ventricular tachycardia Current Visit: Yes Status: Acute Assessment and plan: Aborted with amiodarone, continue po amio Prolonged QTc, medications adjusted For ICD placement today Cardiology following (3) Ischemic cardiomyopathy Current Visit: Yes Status: Chronic Assessment and plan: Known ICMP with EF 40% Continue current meds ECHO findings noted for worsening EF, EF 35%, Severely dilated LA/RA/LV,RV, Pulm HTN ICD placement today (4) End-stage renal disease Current Visit: Yes Status: Chronic Assessment and plan: Continue HD as scheduled Renal following (5) Hyperkalemia Current Visit: Yes Status: Acute Assessment and plan: Improved. Renal diet. HD as scheduled (6) Diabetes mellitus Current Visit: Yes Status: Chronic Assessment and plan: Controlled A1C 5.0 Continue sliding scale insulin Qualifiers: Diabetes mellitus type: type 2 Diabetes mellitus complication status: with kidney complications Diabetes mellitus complication detail: with chronic kidney disease Diabetes mellitus [facility] insulin use: without intermediate frame tender use Chronic kidney disease stage: on chronic dialysis Qualified Code(s): E11.22 - Type 2 diabetes mellitus with diabetic chronic kidney disease; N18.6 - End stage renal disease; Z99.2 - Dependence on renal dialysis (7) CHF (congestive heart failure) Current Visit: Yes Status: Chronic Assessment and plan: Chronic, systolic, not in exacerbation Mgt as in ICMP Qualifiers: Congestive heart failure type: systolic Congestive heart failure chronicity : chronic Qualified Code(s): I50.22 - Chronic systolic (congestive) heart failure (8) HTN (hypertension) Current Visit: Yes Status: Chronic Assessment and plan: As in CHF/Afib Qualifiers: Hypertension type: essential hypertension Qualified Code(s): I10 - Essential (primary) hypertension (9) Hyperlipidemia Current Visit: Yes Status: Chronic Assessment and plan: Continue home meds Qualifiers: Hyperlipidemia type: unspecified Qualified Code(s): E78.5 - Hyperlipidemia , unspecified (10) CAD (coronary artery disease) Current Visit: Yes Status: Chronic Assessment and plan: Stable [facility] noted for 2 vessel disease, patent LAD/RCA stent Continue ASA, Plavix, BB Qualifiers: Coronary Disease-Associated Artery/Lesion type: [place] artery [place] vs. transplanted heart: [place] heart Associated angina: without angina Qualified Code(s): I25.10 - Atherosclerotic heart disease of [place] coronary artery without angina pectoris (11) ESRD (end stage renal disease) on dialysis Current Visit: Yes Status: Chronic (12) Elevated troponin Current Visit: Yes Status: Chronic Assessment and plan: Chronic, possibly from demand in setting of ESRD (13) Hypoglycemia Current Visit: Yes Status: Resolved Assessment and plan: Possibly from poor oral intake Continue D10 for now - Subjective Interval history: Seen and evaluated at bedside 65 Y/O M admitted for Afib with RVR, shortly into admission, developed Vtach, he has a hx of ESRD on HD, CHF, CAD, GERD He is status post [facility] 06/06 which revealed poor systolic function with ejection fraction 35% ,double vessel coronary artery disease and patent LAD and RCA stents. Echocardiogram also done yesterday showed dilated left ventricle LVEF 35%, global hypokinesis, severely dilated LA/RA pulmonary hypertension. Patient noted to be hypotensive 06/07, mean arterial pressure persistently greater than 70. Improved with IVF boluses He also had poor po intake and had an episode of symptomatic hypoglycemia, started on D10. Fs in past 24 hrs reviewed, acceptable Patient seen at bedside he denies new complaints. Heart rate has been controlled without medications, medications were held due to low BP, amio held last night due to prolonged QTc Patient is for ICD placement today Anticoagulation held for procedure Denies new complains at bedside - Constitutional Vitals: Temp Pulse Resp BP Pulse Ox 97.6 F 61 16 114/81 98 06/08/16 07:05 06/08/16 07:05 06/08/16 07:05 06/08/16 07:05 06/08/16 07:05 General appearance: Present: disheveled, A&O X 3, pleasant, no acute distress Exam: VSS, O2 sat 90-92% on 6L O2 by NC Gen: Not in any form of distress, speaks full sentences, Neuro: AAOX3, moves all limbs spontaneously, no focal deficits, no speech abnormality or facial asymmetry HEENT:, Moist mucosa, no cyanosis, KAMAR Chest: CTAB, no wheezes, no rhonchi, no stridor Heart: S1, S2,no m/g/r Abdomen: Soft, not tender, no palpably enlarged organs Extremities: no pedal edema, pulses present and equal bilaterally. Left AVF thrill. Internal Medicine: Result - Labs CBC & Chem 7: 06/08/16 05:35 06/08/16 05:35 Labs: Short CBC 06/08/16 Range/Units 05:35 WBC 8.4 (4.3-11.1) K/mcL Hgb 13.6 (12.9-16.9) g/dL Hct 40.6 (37.5-50.1) % Plt Count 161 (140-400) K/mcL Neutrophils # 5.3 (1.6-8.9) K/mcL BMP 06/08/16 05:35 Sodium 134 L Potassium 4.2 Chloride 100 Carbon Dioxide 19 BUN 41 H D Creatinine 7.66 H Glucose 181 H Calcium 7.1 L Liver Function 06/08/16 Range/Units 05:35 Total Bilirubin 2.0 H (0.2-1.2) mg/dL AST 544 H (5-34) Units/L ALT 482 H (0-55) Units/L Alkaline Phosphatase 199 H (38-126) Units/L Albumin 2.4 L (3.5-5.0) g/dL - ABG Interpretation ABG results: PT/INR, D-dimer PT 19.8 Seconds (9.4-12.1) H 06/05/16 16:30 D-Dimer 2322 ng/mLFEU (0-500) H 06/05/16 10:20 - VTE Documentation of Mechanical Device: Graduated compression elastic hosiery Consult Discharge Plan - Plan Referrals: Dylon Medeiros DO [Primary Care Provider] - Mariangel Quintero DO [Resident] - 06/13/16 4:00 pm
[2016-06-08] MEDS ORDERED: CeFAZolin Pre 2,000 MG/100 ML 2,000 MG/100 ML BAG IVPB ONE (09:00)
--- NOTE | 2016-06-08 10:56 | Event Note ---
Date of Encounter: 06/08/16 Time of Encounter: 10:54 - Cardiology Event Note EKG this AM QTc improved--503ms. Was 559ms yesterday. Amiodarone, Zofran and Trazodone were stopped yesterday. Will resume Amiodarone at 200mg BID. Plan for ICD today. Continue to monitor.
--- NOTE | 2016-06-08 13:16 | Nephrology Progress Note ---
Date of Encounter: 06/08/16 Time of Encounter: 13:00 - Assessment and Plan (1) End-stage renal disease Current Visit: Yes Status: Chronic HD today, orders given. AICD placement following HD. Subjective Interval history: Seen on HD. States feeling better. AICD scheduled after HD. Objective - Vital Signs Vital signs: Vital Signs Temp Pulse Resp BP Pulse Ox 06/08/16 12:20 112/71 06/08/16 12:05 105/70 06/08/16 11:50 104/80 06/08/16 11:35 96/64 06/08/16 11:20 92/59 06/08/16 11:05 92/60 06/08/16 10:50 100/63 06/08/16 10:35 106/69 06/08/16 10:20 106/74 06/08/16 10:05 103/69 06/08/16 09:50 97.9 F 20 105/75 06/08/16 07:05 97.6 F 61 16 114/81 98 06/08/16 04:42 98.0 F 62 17 102/73 97 06/07/16 23:13 97.6 F 60 22 111/71 96 06/07/16 21:10 97.6 F 61 25 121/84 96 06/07/16 20:55 97 06/07/16 16:30 55 06/07/16 16:00 97.8 F 54 16 93/24 98 Intake and Output 06/07/16 06/08/16 06/08/16 23:59 07:59 15:59 Intake Total 250 / 250 1500 / 1500 1000 / 1000 Balance 250 / 250 1500 / 1500 1000 / 1000 Intake: IV Fluids 250 / 250 1500 / 1500 400 / 400 0.9 % Sodium Chloride 1, 250 / 250 1000 / 1000 000 ML @ 75 mls/hr IVC . [id number] [facility] Rx#: [id number] Dextrose 10% Water 500 Ml 500 / 500 400 / 400 Ivbag 500 ML @ 50 mls/hr IVC .Q10H [facility] Rx#: [id number] Oral 0 / 0 Intake, Rinseback and 600 / 600 Flushes Other: Meal Breakfast Percent of Meal Consumed 0% Weight 77.9 kg Blood Glucose* 89 105 101 Hemodialysis Net Fluid 3000 Removed (mL) Patient Weight 06/08/16 23:59 Weight 77.9 kg - General Appearance General appearance: Present: well-developed, well-nourished, appears started age EENT: Present: mucous membranes moist Neck: Present: no JVD Respiratory: Present: clear Cardiology: Present: no edema, regular rate, regular rhythm Gastrointestinal: Present: normoactive bowel sounds, no tenderness Integumentary: Present: warm and dry Neurologic: Present: alert and oriented x3 Psychiatric: Present: mood/affect appropriate, cooperative - Lab 06/08/16 05:35 06/08/16 05:35 Most recent lab results Calcium 7.1 mg/dL (8.6-10.8) L 06/08/16 05:35 Phosphorus 3.1 mg/dL (2.3-4.7) 06/06/16 12:35 Magnesium 2.1 mg/dL (1.6-2.6) 06/06/16 04:50 - VTE Documentation of Mechanical Device: Graduated compression elastic hosiery Consult Discharge Plan - Plan Referrals: Dylon Medeiros DO [Primary Care Provider] - Mariangel Quintero DO [Resident] - 06/13/16 4:00 pm
[2016-06-08] MEDS: *HR* Amiodarone 200 MG TABLET PO SCH (13:50)
[2016-06-08] MEDS: Aspirin 81 MG TAB.CHEW PO SCH (13:50)
--- NOTE | 2016-06-08 13:56 | Pre-Sedation Evaluation ---
Pre-sedation evaluation - Pre-sedation checklist Date of procedure: 06/06/16 Procedure: HEART CATH Recent Vitals: Last Vital Signs Temp 97.9 F 06/08/16 09:50 Pulse 61 06/08/16 07:05 Resp 20 06/08/16 09:50 BP 112/71 06/08/16 12:20 Pulse Ox 98 06/08/16 07:05 H&P (including ROS) documented in medical record: Yes Previous reaction to sedatives/anesthetics: No Dietary Status: No solid food in preceding 4 hrs and no liquid in preceding 2 hrs Airway Assessment: Patient can open mouth completely, TMJ function normal, Micrognathia (under-bite, receding chin) absent, Neck with adequate range of motion Dentition: No loose teeth or bridges Possible difficult airway: No ASA Classification *see protocol: CLASS II-Mild systemic disease Plan of Care: Pt appropriate candidate for procedure/moderate/conscious sedation , Risks/benefits of procedure/sedation discussed w/ patient/family
[2016-06-08] MEDS ORDERED: 0.9 % Sodium Chloride 500 ML ONE (14:28)
[2016-06-08] MEDS ORDERED: Water for inj. (sterile) 10 ML IV ONE (14:29)
[2016-06-08] MEDS ORDERED: D5% in Water (Mini-Bag+) 100 ML IVPB ONE (14:29)
[2016-06-08] MEDS ORDERED: 0.9 % Sodium Chloride 1,000 ML ONE (14:29)
--- NOTE | 2016-06-08 14:46 | Electrocardiograph Report ---
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
[2016-06-08] MEDS ORDERED: *HR* Midazolam HCl 2 MG/2 ML VIAL ONE (15:00)
[2016-06-08] MEDS ORDERED: *HR* FentaNYL (PF) 100 MCG/2 ML VIAL ONE (15:01)
[2016-06-09] MEDS: Gabapentin 300 MG CAPSULE PO SCH ×2 (01:18→21:11)
[2016-06-09] MEDS: *HR* Amiodarone 200 MG TABLET PO SCH ×3 (01:18→21:11)
[2016-06-09 04:37] LABS: Basophils # 0.1 K/mcL (0.0-0.2); Basophils % 0.7 %; Eosinophils % 0.4 %; Hematocrit 41.5 % (37.5-50.1); Hemoglobin 13.6 g/dL (12.9-16.9); Immature Granulocytes % 0.7 % (0-4); Lymphocytes # 0.9 K/mcL (0.6-4.6); Lymphocytes % 10.4 %; Mean Corpuscular HGB Conc 32.8 g/dL (31.6-35.5); Mean Corpuscular Hemoglobin 30.8 pg (28.0-33.3); Mean Corpuscular Volume 94.1 fL (83.0-100.0); Mean Platelet Volume 11.5 fL (9.4-12.4); Monocytes # 1.1 K/mcL (0.0-1.3); Monocytes % 12.7 %; Neutrophils # 6.7 K/mcL (1.6-8.9); Nucleated Red Blood Cells 0.4 /100 WBC (0); Platelet Count 171 K/mcL (140-400); Red Blood Count 4.41 M/mcL (4.19-5.50); Segmented Neutrophils % 75.1 %
--- NOTE | 2016-06-09 07:56 | Internal Med Progress Note ---
Date of Encounter: 06/09/16 Time of Encounter: 07:54 - Assessment and plan (1) Atrial flutter with rapid ventricular response Current Visit: Yes Status: Acute Assessment and plan: Admitting ECG 06/05/16 1016 with atrial flutter, controlled now [id number] score 3, Continue ASA, Plavix Continue po amio Resume isosorbide For coumadin as out-patient, 10 days after ICD placement (2) Ventricular tachycardia Current Visit: Yes Status: Acute Assessment and plan: Aborted with amiodarone, continue po amio Prolonged QTc, medications adjusted s/p ICD Cardiology following (3) Ischemic cardiomyopathy Current Visit: Yes Status: Chronic Assessment and plan: Known ICMP with EF 40% Continue current meds ECHO findings noted for worsening EF, EF 35%, Severely dilated LA/RA/LV,RV, Pulm HTN s/p ICD, CXR X2 no pneumo (4) End-stage renal disease Current Visit: Yes Status: Chronic Assessment and plan: Continue HD as scheduled Renal following (5) Hyperkalemia Current Visit: Yes Status: Acute Assessment and plan: Improved. Renal diet. HD as scheduled (6) Diabetes mellitus Current Visit: Yes Status: Chronic Assessment and plan: Controlled A1C 5.0 Hypoglycemia, hold insulin Qualifiers: Diabetes mellitus type: type 2 Diabetes mellitus complication status: with kidney complications Diabetes mellitus complication detail: with chronic kidney disease Diabetes mellitus nursing home insulin use: without salvage determiner use Chronic kidney disease stage: on chronic dialysis Qualified Code(s): E11.22 - Type 2 diabetes mellitus with diabetic chronic kidney disease; N18.6 - End stage renal disease; Z99.2 - Dependence on renal dialysis (7) CHF (congestive heart failure) Current Visit: Yes Status: Chronic Assessment and plan: Chronic, systolic, not in exacerbation Mgt as in ICMP Qualifiers: Congestive heart failure type: systolic Congestive heart failure chronicity : chronic Qualified Code(s): I50.22 - Chronic systolic (congestive) heart failure (8) HTN (hypertension) Current Visit: Yes Status: Chronic Assessment and plan: As in CHF/Afib Qualifiers: Hypertension type: essential hypertension Qualified Code(s): I10 - Essential (primary) hypertension (9) Hyperlipidemia Current Visit: Yes Status: Chronic Assessment and plan: Continue home meds Qualifiers: Hyperlipidemia type: unspecified Qualified Code(s): E78.5 - Hyperlipidemia , unspecified (10) CAD (coronary artery disease) Current Visit: Yes Status: Chronic Assessment and plan: Stable [facility] noted for 2 vessel disease, patent LAD/RCA stent Continue ASA, Plavix, BB Qualifiers: Coronary Disease-Associated Artery/Lesion type: [place] artery [place] vs. transplanted heart: [place] heart Associated angina: without angina Qualified Code(s): I25.10 - Atherosclerotic heart disease of [place] coronary artery without angina pectoris (11) ESRD (end stage renal disease) on dialysis Current Visit: Yes Status: Chronic (12) Elevated troponin Current Visit: Yes Status: Chronic Assessment and plan: Chronic, possibly from demand in setting of ESRD (13) Hypoglycemia Current Visit: Yes Status: Resolved Assessment and plan: Possibly from poor oral intake D/C D10, encouarge feeds, add supplements, nutrition consult - Subjective Interval history: Seen and evaluated at bedside 65 Y/O M admitted for Afib with RVR, shortly into admission, developed Vtach, he has a hx of ESRD on HD, CHF, CAD, GERD He is status post [facility] 06/06 which revealed poor systolic function with ejection fraction 35% ,double vessel coronary artery disease and patent LAD and RCA stents. Echocardiogram also done yesterday showed dilated left ventricle LVEF 35%, global hypokinesis, severely dilated LA/RA pulmonary hypertension. Patient noted to be hypotensive 06/07, mean arterial pressure persistently greater than 70. Improved with IVF boluses He also had poor po intake and had an episode of symptomatic hypoglycemia, started on D10. Fs in past 24 hrs reviewed, acceptable Patient seen at bedside he denies new complaints. s/p AICD placement 06/08, post procedure CXR with no pneumothorax Patient's blood pressure and fingersticks have improved D/C IVF and D10 for now, continue to monitor FS PT/OT evaluation today Per Cardio, to start Coumadin next week - Constitutional Vitals: Temp Pulse Resp BP Pulse Ox 97.3 F L 60 20 117/55 96 06/09/16 04:47 06/09/16 04:47 06/09/16 04:47 06/09/16 04:47 06/09/16 04:47 General appearance: Present: A&O X 3, pleasant, no acute distress Exam: VSS, O2 sat 90-92% on 6L O2 by NC Gen: Not in any form of distress, speaks full sentences, Neuro: AAOX3, moves all limbs spontaneously, no focal deficits, no speech abnormality or facial asymmetry HEENT:, Moist mucosa, no cyanosis, KAMAR Chest: CTAB, no wheezes, no rhonchi, no stridor. R AICD, dressing clean and dry Heart: S1, S2,no m/g/r Abdomen: Soft, not tender, no palpably enlarged organs Extremities: no pedal edema, pulses present and equal bilaterally. Left AVF thrill. Internal Medicine: Result - Labs CBC & Chem 7: 06/09/16 04:20 06/09/16 06:53 Labs: Short CBC 06/09/16 Range/Units 04:20 WBC 8.9 (4.3-11.1) K/mcL Hgb 13.6 (12.9-16.9) g/dL Hct 41.5 (37.5-50.1) % Plt Count 171 (140-400) K/mcL Neutrophils # 6.7 (1.6-8.9) K/mcL - ABG Interpretation ABG results: PT/INR, D-dimer PT 19.8 Seconds (9.4-12.1) H 06/05/16 16:30 D-Dimer 2322 ng/mLFEU (0-500) H 06/05/16 10:20 - Impressions Impressions Chest X-Ray 06/08/16 16:03 IMPRESSION: Right cardiac AICD in place. No pneumothorax. D/ / Keri Chisholm MD / Keri Chisholm MD Interpreting Provider: Keri Chisholm MD - VTE Documentation of Mechanical Device: Graduated compression elastic hosiery Consult Discharge Plan - Plan Referrals: Dylon Medeiros DO [Primary Care Provider] - Mariangel Quintero DO [Resident] - 06/13/16 4:00 pm
[2016-06-09 08:17] LABS: Calcium 7.8 mg/dL (8.6-10.8); Potassium 4.4 mEq/L (3.5-4.5)
[2016-06-09] MEDS ORDERED: 0.9 % Sodium Chloride 250 ML IVC PRN (09:34)
--- NOTE | 2016-06-09 09:53 | Nephrology Progress Note ---
Date of Encounter: 06/09/16 Time of Encounter: 09:20 - Assessment and Plan (1) End-stage renal disease Current Visit: Yes Status: Chronic S/P ICD placement. HD today, keeping MWF schedule. Orders given. Subjective Interval history: S/P ICD placement. Eating breakfast. No new complaints. Objective - Vital Signs Vital signs: Vital Signs Temp Pulse Resp BP Pulse Ox 06/09/16 04:47 97.3 F L 60 20 117/55 96 06/09/16 04:00 60 06/09/16 00:53 97.3 F L 65 20 114/71 94 06/08/16 23:15 67 06/08/16 19:30 58 06/08/16 18:45 58 16 127/75 92 06/08/16 17:45 60 16 112/77 93 06/08/16 17:15 60 16 114/71 95 06/08/16 16:45 63 16 118/79 92 06/08/16 16:44 97.5 F L 61 16 121/82 95 06/08/16 16:00 60 06/08/16 15:44 97.7 F 16 120/90 06/08/16 14:16 62 92 06/08/16 12:20 112/71 06/08/16 12:05 105/70 06/08/16 11:50 104/80 06/08/16 11:35 96/64 06/08/16 11:20 92/59 06/08/16 11:05 92/60 06/08/16 10:50 100/63 06/08/16 10:35 106/69 06/08/16 10:20 106/74 06/08/16 10:05 103/69 Intake and Output 06/08/16 06/09/16 06/09/16 23:59 07:59 15:59 Other: Meal Dinner Percent of Meal Consumed 0% Stool Size Moderate Stool Consistency loose Stool Color Brown # Urine Diapers 1 # Bowel Movement Diapers 4 Weight 74.9 kg Blood Glucose* 93 91 Patient Weight 06/09/16 23:59 Weight 74.9 kg - General Appearance General appearance: Present: well-developed, well-nourished, appears started age EENT: Present: mucous membranes moist Neck: Present: no JVD Respiratory: Present: clear Cardiology: Present: no edema, regular rate, regular rhythm Gastrointestinal: Present: normoactive bowel sounds, no tenderness Integumentary: Present: warm and dry Neurologic: Present: alert and oriented x3 Psychiatric: Present: mood/affect appropriate, cooperative - Lab 06/09/16 04:20 06/09/16 06:53 Most recent lab results Calcium 7.8 mg/dL (8.6-10.8) L 06/09/16 06:53 Phosphorus 3.1 mg/dL (2.3-4.7) 06/06/16 12:35 Magnesium 2.1 mg/dL (1.6-2.6) 06/06/16 04:50 - VTE Documentation of Mechanical Device: Graduated compression elastic hosiery Consult Discharge Plan - Plan Referrals: Dylon Medeiros DO [Primary Care Provider] - Mariangel Quintero DO [Resident] - 06/13/16 4:00 pm
[2016-06-09] MEDS: Aspirin 81 MG TAB.CHEW PO SCH (09:56)
--- NOTE | 2016-06-09 12:01 | Cardiology Progress Note ---
Date of Encounter: 06/09/16 Time of Encounter: 11:59 Assessment and Plan (1) Ventricular tachycardia Current Visit: Yes Status: Acute Patient with VT on admission with longest run noted to be about 45 seconds. IV amiodarone transitioned to PO 200mg BID. QTc this AM 484ms. Echo 06/06/16 with LVEF 35%, global hypokinesis with regional variations. [facility] 06/06/16 double vessel CAD, stents placed from prior procedure in mid LAD and mid RCA patent. Continue BB. Electrolytes within normal limits. S/P ICD insertion yesterday. CXR okay, device check okay. Cardiology signing off. Reconsult PRN. (2) Atrial flutter with rapid ventricular response Current Visit: Yes Status: Acute Known history of A-Fib, not previously on anticoagulation. Patient started on amiodarone drip during rapid response for VT. Currently maintaining SR. Continue amiodarone 200mg po BID. EKG this AM QTc 484ms. 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 Anticoagulation needs held for 1 week s/p ICD. Given his ESRD, recommend Coumadin, which pt agrees to. Will refer to [facility] to start as outpt. (3) CAD (coronary artery disease) Current Visit: Yes Status: Chronic Double vessel CAD, EF 35%, stents placed from prior procedure in mid LAD and mid RCA patent. ASA, Statin, BB. Qualifiers: Coronary Disease-Associated Artery/Lesion type: [place] artery [place] vs. transplanted heart: [place] heart Associated angina: without angina Qualified Code(s): I25.10 - Atherosclerotic heart disease of [place] coronary artery without angina pectoris (4) Elevated troponin Current Visit: Yes Status: Chronic Elevated troponin in the setting of atrial flutter and ventricular tachycardia. [facility] 06/06/16, as above. No intervention needed. (5) Ischemic cardiomyopathy Current Visit: Yes Status: Chronic Known ICMP. Echo 06/07/16 with LVEF 35%. Continue BB. Add low-dose BARNEY-I. Now s/p ICD. (6) ICD (implantable cardioverter-defibrillator) in place Current Visit: Yes Status: Acute S/P ICD yesterday. Device check okay, CXR okay. Follow-up in 7-10 days for wound check, 4-6 weeks device check and [address] Jesus Mejias. Discussion w patient/family: The assessment and plan as outlined above was discussed with the patient and/or family members who expressed understanding and agreement. All questions were answered. Thank you for involving us in the care of your patient. Please call with any questions. I will discuss all the above with Dr. Mcclain and make changes as necessary. Subjective Principal diagnosis: A-Flutter, VT, CMP Interval history: S/P ICD placement yesterday. Reports feeling tired. Denies any chest pain, reports his breathing is improved. Objective Vital Signs, Last 4 Hours Temp Pulse Resp BP Pulse Ox 06/09/16 11:02 97.9 F 63 14 122/83 94 06/09/16 09:45 97.5 F L 66 15 125/75 95 Vital Signs Temp Pulse Resp BP Pulse Ox 06/09/16 11:02 97.9 F 63 14 122/83 94 06/09/16 09:45 97.5 F L 66 15 125/75 95 06/09/16 04:47 97.3 F L 60 20 117/55 96 06/09/16 04:00 60 06/09/16 00:53 97.3 F L 65 20 114/71 94 06/08/16 23:15 67 06/08/16 19:30 58 06/08/16 18:45 58 16 127/75 92 06/08/16 17:45 60 16 112/77 93 06/08/16 17:15 60 16 114/71 95 06/08/16 16:45 63 16 118/79 92 06/08/16 16:44 97.5 F L 61 16 121/82 95 06/08/16 16:00 60 06/08/16 15:44 97.7 F 16 120/90 06/08/16 14:16 62 92 06/08/16 12:20 112/71 06/08/16 12:05 105/70 Intake and Output 06/08/16 06/09/16 06/09/16 23:59 07:59 15:59 Output Total 0 / 0 Balance 0 / 0 Output: Urine 0 / 0 Other: Meal Dinner Breakfast Percent of Meal Consumed 0% 0% Stool Size Moderate Stool Consistency loose Stool Color Brown # Urine Diapers 1 # Bowel Movement Diapers 4 Weight 74.9 kg Blood Glucose* 93 129 Patient Weight 06/09/16 23:59 Weight 74.9 kg General: Conversant, No Apparent Distress HEENT: Atraumatic, Normocephaly, Mucus Membranes Moist Neck: No JVD, Normal carotid pulses Cardiac: Reg Rate and Rhythm, Normal S1 and S2, No Murmur Lungs: Normal Breath Sounds, No Wheeze, Rales, Rhonchi Neuro: Alert and responsive, No focal deficits noted Abdomen: Soft, Non-Tender Skin: Other (right sided device site healing well with steri-strips inteact. No bleeding, hematoma or ecchymosis noted.) Musculoskeletal: No Chest Wall Tenderness Extremities: No Clubbing, No Cyanosis, No Edema, Normal Pulses Results 06/09/16 04:20 06/09/16 06:53 Lab Results 06/09/16 06/09/16 04:20 06:53 WBC 8.9 Hgb 13.6 Hct 41.5 Plt Count 171 Sodium 136 Potassium 4.4 Chloride 96 L Carbon Dioxide 22 BUN 32 H Creatinine 6.92 H Glucose 97 Calcium 7.8 L Short CBC 06/09/16 Range/Units 04:20 WBC 8.9 (4.3-11.1) K/mcL Hgb 13.6 (12.9-16.9) g/dL Hct 41.5 (37.5-50.1) % Plt Count 171 (140-400) K/mcL Neutrophils # 6.7 (1.6-8.9) K/mcL BMP 06/09/16 Range/Units 06:53 Sodium 136 (136-145) mEq/L Potassium 4.4 (3.5-4.5) mEq/L Chloride 96 L (98-109) mEq/L Carbon Dioxide 22 (19-29) mEq/L BUN 32 H (8-26) mg/dL Creatinine 6.92 H (0.72-1.25) mg/dL Glucose 97 (70-99) mg/dL Calcium 7.8 L (8.6-10.8) mg/dL Impressions Chest X-Ray 06/08/16 16:03 IMPRESSION: Right cardiac AICD in place. No pneumothorax. D/ / Keri Chisholm MD / Keri Chisholm MD Interpreting Provider: Keri Chisholm MD Chest X-Ray 06/09/16 06:00 IMPRESSION: Stable dual lead pacer device placement, with ventricular and atrial leads noted. No postprocedural pneumothorax is identified. Improving central vascular congestion. D/ / Lauro Colindres MD / Lauro Colindres MD Interpreting Provider: Lauro Colindres MD Active Medications Acetaminophen (Tylenol) 650 mg PO Q6HR PRN PRN Reason: Mild Pain (1-3) Stop: 12/05/16 13:18 Acetaminophen/Hydrocodone Bitart ([place] 5-325 Mg) 1 tab PO Q4H PRN PRN Reason: MODERATE TO SEVERE PAIN 4-10 Stop: 12/05/16 13:20 Allopurinol (Zyloprim) 100 mg PO DAILY [facility] Stop: 12/06/16 09:01 Last Admin: 06/09/16 09:56 Dose: 100 mg Amiodarone HCl (Cordarone) 200 mg PO BID [facility] Stop: 12/08/16 11:01 Last Admin: 06/09/16 09:56 Dose: 200 mg Aspirin (Aspirin) 81 mg PO DAILY [facility] Stop: 12/07/16 09:01 Last Admin: 06/09/16 09:56 Dose: 81 mg Atorvastatin Calcium (Lipitor) 10 mg PO HS [facility] Stop: 12/05/16 21:01 Last Admin: 06/09/16 01:18 Dose: Not Given Cinacalcet (Sensipar) 60 mg PO DAILY [facility] Stop: 12/06/16 09:01 Last Admin: 06/09/16 09:56 Dose: 60 mg Clopidogrel Bisulfate (Plavix) 75 mg PO DAILY [facility] Stop: 12/06/16 09:01 Last Admin: 06/09/16 09:56 Dose: 75 mg Dextrose/Water (Dextrose 50% (Syg)) 25 ml IVP AD PRN PRN Reason: Hypoglycemia Stop: 12/05/16 23:36 Last Admin: 06/07/16 16:31 Dose: 25 ml Docusate Sodium (Colace) 100 mg PO BID PRN PRN Reason: Constipation Stop: 12/05/16 13:18 Escitalopram Oxalate (Lexapro) 10 mg PO DAILY [facility] Stop: 12/06/16 09:01 Last Admin: 06/09/16 09:56 Dose: 10 mg Gabapentin (Neurontin) 300 mg PO HS [facility] Stop: 12/05/16 21:01 Last Admin: 06/09/16 01:18 Dose: Not Given Glucagon (Glucagen) 1 mg IM ONCE PRN PRN Reason: Hypoglycemia Stop: 12/05/16 23:36 Glucose (Gluctose) 15 gm PO ONCE PRN PRN Reason: Hypoglycemia Stop: 12/05/16 23:36 Glucose (Gluctose) 30 gm PO ONCE PRN PRN Reason: Hypoglycemia Stop: 12/05/16 23:36 Dextrose (Dextrose 5%) 1,000 mls @ 100 mls/hr IVC .Q10H PRN PRN Reason: HYPOGLYCEMIA Stop: 12/05/16 23:36 Sodium Chloride (0.9 % Sodium Chloride) 250 mls @ 937.5 mls/hr IVC .Q16M PRN PRN Reason: Hypotension Stop: 12/08/16 08:45 Sodium Chloride (0.9 % Sodium Chloride) 1,000 mls @ 0 mls/hr PRIME .Q0M BECKI PRN Reason: As Directed Stop: 12/08/16 08:46 Sodium Chloride (0.9 % Sodium Chloride) 250 mls @ 937.5 mls/hr IVC .Q16M PRN PRN Reason: Hypotension Stop: 12/09/16 09:35 Isosorbide Mononitrate (Imdur) 30 mg PO DAILY [facility] Stop: 12/06/16 09:01 Last Admin: 06/06/16 15:09 Dose: 30 mg Metoprolol Succinate (Toprol Xl) 100 mg PO DAILY [facility] Stop: 12/06/16 09:01 Last Admin: 06/06/16 15:09 Dose: 100 mg Naloxone HCl (Narcan) 0.4 mg IVP Q2MIN PRN PRN Reason: Opioid Reversal Stop: 12/05/16 13:18 Nitroglycerin (Nitroglycerin) 0.4 mg SL AD PRN PRN Reason: Chest Pain Stop: 12/05/16 13:20 Omeprazole (Prilosec) 20 mg PO DAILY [facility] Stop: 12/06/16 09:01 Last Admin: 06/09/16 09:55 Dose: 20 mg Sevelamer HCl (Renvela) 800 mg PO TIDWM [facility] Stop: 12/05/16 17:01 Last Admin: 06/09/16 09:56 Dose: Not Given Sucralfate (Carafate) 1 gm PO BID [facility] Stop: 12/05/16 21:01 Last Admin: 06/09/16 09:56 Dose: 1 gm - Imaging and Cardiology Echo: report reviewed Cardiac cath: report reviewed - EKG Interpretation EKG results cardiology: other (24 hour tele AVG HR 62, SR, 3 beat run NSVT) - VTE Documentation of Mechanical Device: Graduated compression elastic hosiery Consult Discharge Plan - Plan Referrals: Dylon Medeiros DO [Primary Care Provider] - Mariangel Quintero DO [Resident] - 06/13/16 4:00 pm
--- NOTE | 2016-06-09 12:28 | Invasive Diagnostic Lab ---
Dual Chamber ICD Insertion Name: Dexter Manzano Date of Study: 06/08/2016 Date: 1950 Ht: 175.3 cm / 69.0 in Medical Record#: [id number] Age: 65 Wt: 78.2 kg / 172.4 lb Gender: Male BSA: 1.94 Location: Fluoro Dose: 53 mGy BMI: 25.45 Performing MD: Jesus Mejias MD, [facility] Procedures Performed: Procedure Dual ICD Insertion Indications: Description Ventricular arrhythmia Cardiomyopathy Impressions: * Successful implant of dual chamber ICD generator. Degree of difficulty was moderate. Appropriate functionality was observed at the end of the case. Procedure completed without incident. Recommendations: The patient will follow-up in 4-6 weeks for ICD interrogation and evaluation with their Warp Starter. Procedure Description: After obtaining informed consent, the patient was brought to the electrophysiology laboratory in the fasting, post absorptive state. The patient was prepped and draped exposing the left chest. Local anesthesia was obtained with 1% Lidocaine. A 5 cm incision was created 2 fingerbredths below and parallel to the clavicle and carried down to the prepectoral fascia. At that level, a pocket was created to accommodate and size the hardware. An antibiotic soaked sponge was placed in the pocket. Hemostasis was obtained. Venous access was obtained using Axillary vein sticks. A total of three venous guide wires were utilized. A 9 Fr. Safe was used for the RV lead.The RV lead was manipulated under direct fluoroscopy to find a physically stable and electrically optimal location in the RV [place]. See device, pacing and sensing data below. The right atrial lead then placed. It was manipulated under direct fluoroscopy to find a physically stable and electrically optimal location in the RA appendage. See device, pacing and sensing data below. All leads were sutured to the prepectoral fascia. The previously placed antibiotic sponges were removed. Hemostasis was obtained. The pocket was copiously irrigated with antibiotic solution. Pocket was visually inspected for retained debris and foreign objects and there was none. The device was then connected to the leads in standard fashion. All set screws were visually inspected and deployed in standard configuration. The device was placed in the pocket. A retaining anchoring suture to the prepectoral fascia was placed. The wound was closed in layers starting with 2-0 Vicryl for the deep layer and 4-0 Vicryl for the skin. Steri-Strips were placed and 4x4s secured with tape. Defibrillation testing was not done. The patient tolerated the procedure well. Complications: None Disposition: The patient was returned to the recovery room. Patient will be scheduled to have a follow-up wound check in one week here at [facility]. A portable chest x-ray was obtained to document lead position and rule out pneumothorax ICD Device Information: Night Warehouse Selector Model Name Model Number Serial Number Medtronic [place]ccol-e-gamesa MRI XT DR Singh [id number] ICD Lead(s) Information: Night Warehouse Selector Model Name Model No. Serial No. Placement Medtronic [id number] RV [place] Medtronic [id number] RA appendage Device Measurement Data: Sensing (mV) Threshold (V) / (msec) Impedance (Ohms) Atrial Lead 3.4 1.6 / 0.5 761 RV Lead 6.7 0.5 / 0.5 549 LV Lead Device Settings: MODE: MVP Lower Rate: 60 bpm CHELI Delay: Upper Rate: 120 bpm PAV Delay: Procedure Medications: Time Medication Dose Unit Route 02:52 PM Oxygen 2 L/min nasal cannula 02:58 PM Ancef 1 gram Intravenous 03:07 PM Versed 1 Mg Intravenous 03:07 PM Fentanyl 25 Mcg Intravenous 03:08 PM Lidocaine 2% 8 mL Subcutaneous 03:10 PM Lidocaine 2% 9 mL Subcutaneous 03:10 PM Versed 1 Mg Intravenous Contrast: Isovue -1 ml. Complications: No complications occurred during the procedure. Complication None Updated by Jesus Mejias MD, [facility] on 06/09/2016 12:22:19 PM electronically signed on 06/09/2016 12:22:52 PM with status of Final
--- NOTE | 2016-06-09 17:38 | Electrocardiograph Report ---
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
[2016-06-10] MEDS: *HR* Amiodarone 200 MG TABLET PO SCH ×2 (08:39→21:19)
[2016-06-10] MEDS: Metoprolol XL (24 HR) Succ 25 MG TAB.ER.24H PO SCH (08:39)
[2016-06-10] MEDS: Aspirin 81 MG TAB.CHEW PO SCH (08:39)
[2016-06-10] MEDS: Isosorbide MONOnitrate (24 HR) 30 MG TAB.ER.24H PO SCH (08:39)
--- NOTE | 2016-06-10 09:10 | Internal Med Progress Note ---
Date of Encounter: 06/10/16 Time of Encounter: 09:10 - Assessment and plan (1) Atrial flutter with rapid ventricular response Current Visit: Yes Status: Acute Assessment and plan: Admitting ECG 06/05/16 1016 with atrial flutter, controlled now [id number] score 3, Continue ASA, Plavix Continue po amio Continue Isosorbide Resumed toprol po at 25mg po daily, monitor BP For coumadin as out-patient, 10 days after ICD placement (2) Ventricular tachycardia Current Visit: Yes Status: Acute Assessment and plan: Aborted with amiodarone, continue po amio Resume toprol Prolonged QTc, medications adjusted s/p ICD, asymptomatic (3) Ischemic cardiomyopathy Current Visit: Yes Status: Chronic Assessment and plan: Known ICMP with EF 40% Continue current meds ECHO findings noted for worsening EF, EF 35%, Severely dilated LA/RA/LV,RV, Pulm HTN s/p ICD, CXR X2 no pneumo Patient is euvolemic (4) End-stage renal disease Current Visit: Yes Status: Chronic Assessment and plan: Continue HD as scheduled Renal following (5) Hyperkalemia Current Visit: Yes Status: Acute Assessment and plan: Improved. Check Chem stat today for K and Mag Renal diet. HD as scheduled (6) Diabetes mellitus Current Visit: Yes Status: Chronic Assessment and plan: Controlled A1C 5.0 Hypoglycemia,improved Continue to hold insulin Qualifiers: Diabetes mellitus type: type 2 Diabetes mellitus complication status: with kidney complications Diabetes mellitus complication detail: with chronic kidney disease Diabetes mellitus fci insulin use: without fci use Chronic kidney disease stage: on chronic dialysis Qualified Code(s): E11.22 - Type 2 diabetes mellitus with diabetic chronic kidney disease; N18.6 - End stage renal disease; Z99.2 - Dependence on renal dialysis (7) CHF (congestive heart failure) Current Visit: Yes Status: Chronic Assessment and plan: Chronic, systolic, not in exacerbation Euvolemic clinically Mgt as in ICMP Qualifiers: Congestive heart failure type: systolic Congestive heart failure chronicity : chronic Qualified Code(s): I50.22 - Chronic systolic (congestive) heart failure (8) HTN (hypertension) Current Visit: Yes Status: Chronic Assessment and plan: As in CHF/Afib Qualifiers: Hypertension type: essential hypertension Qualified Code(s): I10 - Essential (primary) hypertension (9) Hyperlipidemia Current Visit: Yes Status: Chronic Assessment and plan: Continue home meds Qualifiers: Hyperlipidemia type: unspecified Qualified Code(s): E78.5 - Hyperlipidemia , unspecified (10) CAD (coronary artery disease) Current Visit: Yes Status: Chronic Assessment and plan: Stable LHC noted for 2 vessel disease, patent LAD/RCA stent Continue ASA, Plavix, BB Qualifiers: Coronary Disease-Associated Artery/Lesion type: [place] artery [place] vs. transplanted heart: [place] heart Associated angina: without angina Qualified Code(s): I25.10 - Atherosclerotic heart disease of [place] coronary artery without angina pectoris (11) ESRD (end stage renal disease) on dialysis Current Visit: Yes Status: Chronic (12) Elevated troponin Current Visit: Yes Status: Chronic Assessment and plan: Chronic, possibly from demand in setting of ESRD (13) Hypoglycemia Current Visit: Yes Status: Resolved Assessment and plan: Possibly from poor oral intake D/C D10, encouarge feeds, add supplements, nutrition consult - Subjective Interval history: Seen and evaluated at bedside 65 Y/O M admitted for Afib with RVR, shortly into admission, developed Vtach, he has a hx of ESRD on HD, CHF, CAD, GERD He is status post C 06/06 which revealed poor systolic function with ejection fraction 35% ,double vessel coronary artery disease and patent LAD and RCA stents. Echocardiogram athis admission showed dilated left ventricle LVEF 35%, global hypokinesis, severely dilated LA/RA pulmonary hypertension. Patient noted to be hypotensive 06/07, mean arterial pressure persistently greater than 70. Improved with IVF boluses He also had poor po intake and had an episode of symptomatic hypoglycemia, started on D10. Fs in past 24 hrs reviewed, acceptable, D10 was disconitnued 06/09 Patient seen at bedside he denies new complaints. s/p AICD placement 06/08, post procedure CXR with no pneumothorax Patient's blood pressure and fingersticks have improved Did not co-operate with PT/OT yesterday He had some runs of Vtach in the early hrs of today, no ICD firing, patient was asymptomatic Per Cardio, to start Coumadin next week Will restart Toprol at 25mg po daily, monitor BP closely - Constitutional Vitals: Temp Pulse Resp BP Pulse Ox 97.7 F 61 12 124/81 96 06/10/16 08:30 06/10/16 08:30 06/10/16 08:30 06/10/16 08:30 06/10/16 08:30 General appearance: Present: A&O X 3, pleasant, no acute distress Exam: VSS, O2 sat 90-92% on 6L O2 by NC Gen: Not in any form of distress, speaks full sentences, Neuro: AAOX3, moves all limbs spontaneously, no focal deficits, no speech abnormality or facial asymmetry HEENT:, Moist mucosa, no cyanosis, KAMAR Chest: CTAB, no wheezes, no rhonchi, no stridor. R AICD, dressing clean and dry Heart: S1, S2,no m/g/r Abdomen: Soft, not tender, no palpably enlarged organs Extremities: no pedal edema, pulses present and equal bilaterally. Left AVF thrill. Internal Medicine: Result - Labs CBC & Chem 7: 06/09/16 04:20 06/09/16 06:53 - ABG Interpretation ABG results: PT/INR, D-dimer PT 19.8 Seconds (9.4-12.1) H 06/05/16 16:30 D-Dimer 2322 ng/mLFEU (0-500) H 06/05/16 10:20 - VTE Documentation of Mechanical Device: Graduated compression elastic hosiery Consult Discharge Plan - Plan Referrals: Dylon Medeiros DO [Primary Care Provider] - Mariangel Quintero DO [Resident] - 06/13/16 4:00 pm Jesus Mejias MD [Partnered Physician] - (Wound Check Appt 06/15/16 @ 0930 Device Check Appt 07/14/16 @ 0930)
[2016-06-10 09:38] LABS: Calcium 7.6 mg/dL (8.6-10.8); Magnesium 1.9 mg/dL (1.6-2.6); Potassium 3.8 mEq/L (3.5-4.5)
--- NOTE | 2016-06-10 12:57 | Nephrology Progress Note ---
Date of Encounter: 06/10/16 Time of Encounter: 12:57 - Assessment and Plan (1) ESRD (end stage renal disease) Current Visit: Yes Status: Acute 1. ESRD. was dialysed yesterday. no indication for HD today 2. CAD. A. fib and episode of V. tach. on low dose BB, ACEI and Imdur. Continue to monitor BP 3. Secondary HPT, cont cinacalcet 60 mg a day. Corrected calcium and phosphate are normal Subjective Principal diagnosis: A-Flutter, VT, CMP Interval history: felt dizzy this morning when physical therapy got him up. discharge planning in progress. Has minimal soreness near the AICD site Objective - Vital Signs Vital signs: Vital Signs Temp Pulse Resp BP Pulse Ox 06/10/16 12:04 64 13 104/41 93 06/10/16 11:30 97.5 F L 64 13 104/41 93 06/10/16 08:30 97.7 F 61 12 124/81 96 06/10/16 03:29 98.2 F 62 15 97/79 96 06/09/16 23:57 97.8 F 62 18 91/55 98 06/09/16 19:30 97.9 F 62 18 104/85 96 06/09/16 18:15 65 140/104 95 06/09/16 17:48 98.5 F 20 113/47 06/09/16 17:00 127/74 06/09/16 16:45 137/67 06/09/16 16:30 112/67 06/09/16 16:15 132/62 06/09/16 16:11 70 06/09/16 16:00 119/67 06/09/16 15:45 113/71 06/09/16 15:30 108/66 06/09/16 15:15 99/51 06/09/16 15:00 124/79 06/09/16 14:45 108/65 06/09/16 14:30 110/62 06/09/16 14:15 117/63 06/09/16 14:00 98 F 20 122/58 Intake and Output 06/09/16 06/10/16 06/10/16 23:59 07:59 15:59 Intake Total 120 / 120 120 / 120 Output Total 2600 / 2600 Balance -2480 / -2480 120 / 120 Intake: Oral 120 / 120 120 / 120 Output: Urine 0 / 0 Total Dialysis Output 2600 / 2600 Other: Meal Dinner Breakfast Percent of Meal Consumed 15% 40% Weight 74.8 kg Blood Glucose* 98 100 112 Hemodialysis Net Fluid 2000 Removed (mL) Patient Weight 06/10/16 23:59 Weight 74.8 kg - General Appearance Exam: CVS; s1s2 present, regular. 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
[2016-06-10] MEDS ORDERED: Preparation H Ointment 30 GM TUBE TP PRN (14:58)
[2016-06-10] MEDS: Gabapentin 300 MG CAPSULE PO SCH (21:18)
[2016-06-11 04:58] LABS: Potassium 3.6 mEq/L (3.5-4.5)
[2016-06-11 05:01] LABS: Calcium 7.1 mg/dL (8.6-10.8)
[2016-06-11] MEDS: *HR* Amiodarone 200 MG TABLET PO SCH ×2 (08:22→20:31)
[2016-06-11] MEDS: Metoprolol XL (24 HR) Succ 25 MG TAB.ER.24H PO SCH (08:22)
[2016-06-11] MEDS: Isosorbide MONOnitrate (24 HR) 30 MG TAB.ER.24H PO SCH (08:22)
[2016-06-11] MEDS: Aspirin 81 MG TAB.CHEW PO SCH (08:22)
[2016-06-11] MEDS ORDERED: *HR* OxyCODONE/APAP 5/325 TABLET PO ONE (10:25)
--- NOTE | 2016-06-11 10:26 | Internal Med Progress Note ---
Date of Encounter: 06/11/16 Time of Encounter: 09:50 - Assessment and plan (1) Atrial flutter with rapid ventricular response Current Visit: Yes Status: Acute Assessment and plan: Admitting ECG 06/05/16 1016 with atrial flutter, controlled now [id number] score 3, Continue ASA, Plavix Continue po amio Continue Isosorbide Contibue toprol po at 25mg po daily, monitor BP For coumadin as out-patient, 10 days after ICD placement and d/c ASA at that time (2) Ventricular tachycardia Current Visit: Yes Status: Acute Assessment and plan: Aborted with amiodarone, continue po amio Resume toprol Prolonged QTc, medications adjusted s/p ICD, asymptomatic (3) Ischemic cardiomyopathy Current Visit: Yes Status: Chronic Assessment and plan: Known ICMP with EF 40% Continue current meds ECHO findings noted for worsening EF, EF 35%, Severely dilated LA/RA/LV,RV, Pulm HTN s/p ICD, CXR X2 no pneumo Patient is euvolemic (4) End-stage renal disease Current Visit: Yes Status: Chronic Assessment and plan: Continue HD as scheduled Renal following (5) Hyperkalemia Current Visit: Yes Status: Acute Assessment and plan: Improved. Renal diet. HD as scheduled (6) Diabetes mellitus Current Visit: Yes Status: Chronic Assessment and plan: Controlled A1C 5.0 Hypoglycemia,improved Continue to hold insulin Qualifiers: Diabetes mellitus type: type 2 Diabetes mellitus complication status: with kidney complications Diabetes mellitus complication detail: with chronic kidney disease Diabetes mellitus intermediate project manager insulin use: without intermediate project manager use Chronic kidney disease stage: on chronic dialysis Qualified Code(s): E11.22 - Type 2 diabetes mellitus with diabetic chronic kidney disease; N18.6 - End stage renal disease; Z99.2 - Dependence on renal dialysis (7) CHF (congestive heart failure) Current Visit: Yes Status: Chronic Assessment and plan: Chronic, systolic, not in exacerbation Euvolemic clinically Mgt as in ICMP Qualifiers: Congestive heart failure type: systolic Congestive heart failure chronicity : chronic Qualified Code(s): I50.22 - Chronic systolic (congestive) heart failure (8) HTN (hypertension) Current Visit: Yes Status: Chronic Assessment and plan: As in CHF/Afib Qualifiers: Hypertension type: essential hypertension Qualified Code(s): I10 - Essential (primary) hypertension (9) Hyperlipidemia Current Visit: Yes Status: Chronic Assessment and plan: Continue home meds Qualifiers: Hyperlipidemia type: unspecified Qualified Code(s): E78.5 - Hyperlipidemia , unspecified (10) CAD (coronary artery disease) Current Visit: Yes Status: Chronic Assessment and plan: Stable LHC noted for 2 vessel disease, patent LAD/RCA stent Continue ASA, Plavix, BB Qualifiers: Coronary Disease-Associated Artery/Lesion type: [place] artery [place] vs. transplanted heart: [place] heart Associated angina: without angina Qualified Code(s): I25.10 - Atherosclerotic heart disease of [place] coronary artery without angina pectoris (11) ESRD (end stage renal disease) on dialysis Current Visit: Yes Status: Chronic (12) Elevated troponin Current Visit: Yes Status: Chronic Assessment and plan: Chronic, possibly from demand in setting of ESRD (13) Hypoglycemia Current Visit: Yes Status: Resolved Assessment and plan: Possibly from poor oral intake Resolved - Subjective Interval history: Seen and evaluated at bedside 65 Y/O M admitted for Afib with RVR, shortly into admission, developed Vtach, he has a hx of ESRD on HD, CHF, CAD, GERD He is status post C 06/06 which revealed poor systolic function with ejection fraction 35% ,double vessel coronary artery disease and patent LAD and RCA stents. Echocardiogram athis admission showed dilated left ventricle LVEF 35%, global hypokinesis, severely dilated LA/RA pulmonary hypertension. Patient noted to be hypotensive 06/07, mean arterial pressure persistently greater than 70. Improved with IVF boluses He also had poor po intake and had an episode of symptomatic hypoglycemia, started on D10. Fs in past 24 hrs reviewed, acceptable, D10 was discontinued 06/09 Patient seen at bedside Complains of soreness on AICD site s/p AICD placement 06/08, post procedure CXR with no pneumothorax Patient's blood pressure and fingersticks have improved BP and HR has been stable on current medication, continue same Will give percocet one dose for pain Electrolytes are stable PT/OT recommends SNF SW consulted for placement - Constitutional Vitals: Temp Pulse Resp BP Pulse Ox 98.1 F 67 16 88/31 97 06/11/16 08:25 06/11/16 08:25 06/11/16 08:25 06/11/16 08:25 06/11/16 03:34 General appearance: Present: A&O X 3, pleasant, no acute distress Exam: VSS, O2 sat 90-92% on 2L O2 by NC Gen: Not in any form of distress, speaks full sentences, Neuro: AAOX3, moves all limbs spontaneously, no focal deficits, no speech abnormality or facial asymmetry HEENT:, Moist mucosa, no cyanosis, KAMAR Chest: CTAB, no wheezes, no rhonchi, no stridor. R AICD, dressing clean and dry Heart: S1, S2,no m/g/r Abdomen: Soft, not tender, no palpably enlarged organs Extremities: no pedal edema, pulses present and equal bilaterally. Left AVF thrill. Internal Medicine: Result - Labs CBC & Chem 7: 06/09/16 04:20 06/11/16 04:25 Labs: BMP 06/11/16 06/11/16 03:30 04:25 Sodium TNP 136 Potassium TNP 3.6 Chloride TNP 93 L Carbon Dioxide TNP 29 BUN TNP 27 H Creatinine TNP 6.92 H Glucose TNP 98 Calcium TNP 7.1 L - ABG Interpretation ABG results: PT/INR, D-dimer PT 19.8 Seconds (9.4-12.1) H 06/05/16 16:30 D-Dimer 2322 ng/mLFEU (0-500) H 06/05/16 10:20 - VTE Documentation of Mechanical Device: Graduated compression elastic hosiery Consult Discharge Plan - Plan Referrals: Dylon Medeiros DO [Primary Care Provider] - Mariangel Quintero DO [Resident] - 06/13/16 4:00 pm Jesus Mejias MD [Partnered Physician] - (Wound Check Appt 06/15/16 @ 0930 Device Check Appt 07/14/16 @ 0930)
--- NOTE | 2016-06-11 12:27 | Nephrology Progress Note ---
Date of Encounter: 06/11/16 Time of Encounter: 12:27 - Assessment and Plan (1) ESRD (end stage renal disease) Current Visit: Yes Status: Acute 1. ESRD. plan for HD in a.m 2. CAD. A. fib and episode of V. tach. s/p AICD. on low dose BB, ACEI and Imdur. Hold meds in a.m prior to Dialysis 3. Secondary HPT, cont cinacalcet 60 mg a day and Renagel Continue PT, DC planning in progress Subjective Principal diagnosis: A-Flutter, VT, CMP Interval history: BP has been borderline low. Denies dizziness, had physical therapy this morning Continues to have minimal soreness near the AICD site Objective - Vital Signs Vital signs: Vital Signs Temp Pulse Resp BP Pulse Ox 06/11/16 11:51 60 06/11/16 11:00 63 16 98/57 06/11/16 08:25 98.1 F 67 16 88/31 06/11/16 03:34 98.0 F 59 16 96/69 97 06/10/16 23:57 98.2 F 66 15 106/69 97 06/10/16 19:25 98.2 F 71 16 85/70 97 06/10/16 15:25 97.6 F 65 14 81/66 98 Intake and Output 06/10/16 06/11/16 06/11/16 23:59 07:59 15:59 Intake Total 120 / 120 Balance 120 / 120 Intake: Oral 120 / 120 Other: Meal Breakfast Percent of Meal Consumed 20% Weight 75.3 kg Blood Glucose* 108 107 99 Patient Weight 06/11/16 23:59 Weight 75.3 kg - General Appearance Exam: CVS; s1s2 present, regular, no murmurs RESP; good air entry, clear ABD; soft, NT, BS present, no organomegaly EXT; no edema. Left arm AV fistula has bruit WATERSHED TENDER; alert oriented x3 - Lab 06/09/16 04:20 06/11/16 04:25 Most recent lab results Calcium 7.1 mg/dL (8.6-10.8) L 06/11/16 04:25 Phosphorus 3.1 mg/dL (2.3-4.7) 06/06/16 12:35 Magnesium 1.8 mg/dL (1.6-2.6) 06/11/16 04:25 - VTE Documentation of Mechanical Device: Graduated compression elastic hosiery Consult Discharge Plan - Plan Referrals: Dylon Medeiros DO [Primary Care Provider] - Mariangel Quintero DO [Resident] - 06/13/16 4:00 pm Jesus Mejias MD [Partnered Physician] - (Wound Check Appt 06/15/16 @ 0930 Device Check Appt 07/14/16 @ 0930)
--- NOTE | 2016-06-11 12:42 | Nephrology Progress Note ---
Date of Encounter: 06/11/16 Time of Encounter: 12:35 - Assessment and Plan (1) ESRD (end stage renal disease) Current Visit: Yes Status: Acute 1. ESRD. plan for HD in a.m 2. CAD. A. fib and episode of V. tach. s/p AICD. on low dose BB, ACEI and Imdur. Hold meds in a.m prior to Dialysis 3. Secondary HPT, cont cinacalcet 60 mg a day and Renagel Continue PT, DC planning in progress Subjective Principal diagnosis: A-Flutter, VT, CMP Interval history: BP has been borderline low. Denies dizziness, had physical therapy this morning Continues to have minimal soreness near the AICD site Objective - Vital Signs Vital signs: Vital Signs Temp Pulse Resp BP Pulse Ox 06/11/16 11:51 60 06/11/16 11:00 63 16 98/57 06/11/16 08:25 98.1 F 67 16 88/31 06/11/16 03:34 98.0 F 59 16 96/69 97 06/10/16 23:57 98.2 F 66 15 106/69 97 06/10/16 19:25 98.2 F 71 16 85/70 97 06/10/16 15:25 97.6 F 65 14 81/66 98 Intake and Output 06/10/16 06/11/16 06/11/16 23:59 07:59 15:59 Intake Total 120 / 120 Balance 120 / 120 Intake: Oral 120 / 120 Other: Meal Breakfast Percent of Meal Consumed 20% Weight 75.3 kg Blood Glucose* 108 107 99 Patient Weight 06/11/16 23:59 Weight 75.3 kg - Lab 06/09/16 04:20 06/11/16 04:25 Most recent lab results Calcium 7.1 mg/dL (8.6-10.8) L 06/11/16 04:25 Phosphorus 3.1 mg/dL (2.3-4.7) 06/06/16 12:35 Magnesium 1.8 mg/dL (1.6-2.6) 06/11/16 04:25 - VTE Documentation of Mechanical Device: Graduated compression elastic hosiery Consult Discharge Plan - Plan Referrals: Dylon Medeiros DO [Primary Care Provider] - Mariangel Quintero DO [Resident] - 06/13/16 4:00 pm Jesus Mejias MD [Partnered Physician] - (Wound Check Appt 06/15/16 @ 929 Device Check Appt 07/14/16 @ 929)
[2016-06-11] MEDS: Gabapentin 300 MG CAPSULE PO SCH (20:31)
[2016-06-12 04:39] LABS: Calcium 6.9 mg/dL (8.6-10.8)
[2016-06-12] MEDS: Aspirin 81 MG TAB.CHEW PO SCH (08:15)
--- NOTE | 2016-06-12 09:22 | Discharge Summary ---
Date of Encounter: 06/12/16 Time of Encounter: 09:22 - Discharge Diagnosis (1) Atrial flutter with rapid ventricular response Priority: Primary Status: Resolved (2) Ventricular tachycardia Priority: Primary Status: Resolved (3) Ischemic cardiomyopathy Priority: Secondary Status: Chronic (4) End-stage renal disease Priority: Secondary Status: Chronic (5) Hyperkalemia Priority: Primary Status: Resolved (6) Diabetes mellitus Priority: Secondary Status: Chronic Qualifiers: Diabetes mellitus type: type 2 Diabetes mellitus complication status: with kidney complications Diabetes mellitus complication detail: with chronic kidney disease Diabetes mellitus rodent exterminator insulin use: without rodent exterminator use Chronic kidney disease stage: on chronic dialysis Qualified Code(s): E11.22 - Type 2 diabetes mellitus with diabetic chronic kidney disease; N18.6 - End stage renal disease; Z99.2 - Dependence on renal dialysis (7) CHF (congestive heart failure) Priority: Secondary Status: Chronic Qualifiers: Congestive heart failure type: systolic Congestive heart failure chronicity : chronic Qualified Code(s): I50.22 - Chronic systolic (congestive) heart failure (8) HTN (hypertension) Priority: Secondary Status: Chronic Qualifiers: Hypertension type: essential hypertension Qualified Code(s): I10 - Essential (primary) hypertension (9) Hyperlipidemia Priority: Secondary Status: Chronic Qualifiers: Hyperlipidemia type: unspecified Qualified Code(s): E78.5 - Hyperlipidemia , unspecified (10) CAD (coronary artery disease) Priority: Secondary Status: Chronic Qualifiers: Coronary Disease-Associated Artery/Lesion type: [place] artery [place] vs. transplanted heart: [place] heart Associated angina: without angina Qualified Code(s): I25.10 - Atherosclerotic heart disease of [place] coronary artery without angina pectoris (11) ESRD (end stage renal disease) on dialysis Priority: Secondary Status: Chronic (12) Elevated troponin Priority: Secondary Status: Chronic (13) Hypoglycemia Priority: Primary Status: Resolved - Discharge Medications Prescriptions: Gabapentin [Neurontin] 300 mg PO HS #30 capsule HYDROcodone/Acet 5/325 mg [[place] 5-325 mg] 1 tab PO Q4H PRN #15 tablet PRN Reason: Pain Home Medications: Allopurinol [Zyloprim] 100 mg PO DAILY 12/21/14 [History] Atorvastatin [Lipitor] 10 mg PO HS 12/21/14 [History] Cinacalcet [Sensipar] 60 mg PO DAILY 12/21/14 [History] Clopidogrel Bisulfate [Plavix] 75 mg PO DAILY 12/21/14 [History] Escitalopram [Lexapro] 10 mg PO DAILY 12/21/14 [History] Nitroglycerin 0.4 mg SL AD PRN 12/21/14 [History] Sevelamer [Renvela] 800 mg PO TIDWM 12/21/14 [History] TraZODone 100 mg PO HS 12/21/14 [History] Pantoprazole Sodium [Protonix] 40 mg PO DAILY #0 06/25/15 [Rx] Isosorbide MONOnitrate (24 HR) [Imdur] 30 mg PO DAILY #30 tab.er.24h 10/02/15 [ Rx] Acetaminophen [Tylenol] 650 mg PO Q6HR PRN #0 tablet 06/12/16 [Rx] Amiodarone [Cordarone] 200 mg PO BID tablet 06/12/16 [Rx] Aspirin 81 mg PO DAILY tab.chew 06/12/16 [Rx] Docusate [Colace] 100 mg PO BID PRN #0 capsule 06/12/16 [Rx] Gabapentin [Neurontin] 300 mg PO HS #30 capsule 06/12/16 [Rx] HYDROcodone/Acet 5/325 mg [[place] 5-325 mg] 1 tab PO Q4H PRN #15 tablet 06/12/16 [Rx] Lisinopril [Zestril] 2.5 mg PO DAILY tablet 06/12/16 [Rx] Metoprolol XL (24 HR) Succ [Toprol Xl] 25 mg PO DAILY tab.er.24h 06/12/16 [Rx] Preparation H Ointment 1 appl TP TID PRN #0 tube 06/12/16 [Rx] Allergies/Adverse Reactions: Allergies No Known Allergies Allergy (Verified 06/05/16 10:14) Procedures/tests Complete & Pending: Procedures Performed prior 72 hours Category Date Time Status EKG [ECG 12 lead ECG] [ECG] Routine Y 06/09/16 08:43 Completed Date of admission: 06/05/16 17:32 Primary care physician: Lisandra Mcguire Consults: 06/06/16 08:15 Consult to Dialysis [CONS] ONCE 06/07/16 11:41 Consult to Electrophysiology (EP) [CONS] Routine Consulting Provider: Electrophysiology Keshia Reason for Consult: VT, evaluate for ICD Time Notified: 09:15 Call Completed: Yes 06/08/16 08:45 Consult to Dialysis [CONS] ONCE 06/08/16 14:32 Consult to Occupational Therapy [CONS] Routine Comment: Evaluate, develop and implement POC Reason for Consult: has not been out of bed since admission Consult to Physical Therapy [CONS] Routine Comment: Evaluate, develop and implement POC Reason for Consult: Has not been out of bed since admission 06/09/16 09:04 Consult to Nutrition [CONS] Routine Comment: Consulting Provider: NUTRITION Reason for Dietary Consult: PO Supplementation 06/09/16 09:45 Consult to Dialysis [CONS] ONCE 06/11/16 07:56 Consult to Lime Trimmer [CONS] Routine Reason for SW Consult: Placement Discharging clinician: Curry Falcon Anticipated date of discharge: 06/12/16 - Patient Status Disposition: Transfer Inpatient Rehab Fac Condition: Fair Functional capacity at discharge: uses cane/walker Overall status at discharge: patient is progressing back to baseline - Discharge Instructions Follow Up With: Dylon Medeiros DO [Primary Care Provider] - Jesus Mejias MD [Partnered Physician] - (Wound Check Appt 06/15/16 @ 0930 Device Check Appt 07/14/16 @ 0930) - Diet and Activity Activity: as per physical therapy Diet: diabetic diet, low fat, low cholesterol, low salt diet, other (renal diet) Interval History: See below Hospital course: Mr. Manzano is a 65 year old male with hypertension, hyperlipidemia, ESRD on HD MWF , CAD s/p stents to LAD and RCA, CHF, who was sent to the ED from dialysis on 06/05/2016 prior to his dialysis treatment due to tachycardia. Patient was complaining of shortness of breath and palpitations upon arrival to dialysis and his heart rate was found to be in the 200s. He reported occasional lightheadedness, but denies chest pain, fever, cough, numbness or tingling. Patient spontaneously converted to aflutter in the low 100s while being prepared for cardioversion. Work up on admission revealed elevated troponin of 0.25, though patient is chronically elevated in the setting of ESRD. Potassium was within normal limits at 4.2. Creatinine was at baseline. Magnesium was within normal limits. WBC was normal at 5.6. The ED consulted cardiology and nephrology. On exam, patient alert and oriented, in no acute distress. Heart had irregular, tachycardia rhythm, with systolic murmur. Lungs were clear bilaterally to auscultation. He was saturating 92% on 5L NC. His rhythm on the monitor was irregular and kept jumping to 120s-130s and back to low 100s. Patient was admitted for management of Afib with RVR and shortly into admission , he developed VTACH which responded to Cardizem and amiodarone bolus. Patient was started on an amiodarone drip. Due to concern for ischemic event, started heparin drip as well. Cardiology reviewed the patient, amiodarone was converted to oral form. He is status post [facility] 06/06 which revealed poor systolic function with ejection fraction 35%, double vessel coronary artery disease and patent LAD and RCA stents. Echocardiogram at his admission showed dilated left ventricle LVEF 35% , global hypokinesis, severely dilated LA/RA pulmonary hypertension. Due to his arrhythmias and EF of 35%, patient had ICD placed 06/09/16. Post- procedural CXR with no pneumothorax X2. Given [id number] score 3, cardiology recommends rodent exterminator anticoagulation. Patient is currently on Plavix and ASA. It is recommended that he resumed Warfarin on 06/19/16 and discontinue ASA when Warfarin is started, monitor INR Patient has made remarkable improvement, however due to the multiple events and deconditioning, he qualified for SNF placement after review by PT. CHOICE study showed other proposed risk factors for heart disease in ESRD patients include uremic toxins, dialysis therapy, abnormalities in mineral metabolism, and other factors. Hence, it is very probable that Mr. Ferreira ESRD has a significant contributory factor in his heart disease. Expected length of stay at In-patient physical therapy is 06/12 to 06/26 Strongly recommend follow up with PCP, Nephrology, and Cardiology. Monitor INR when Coumadin is started, Continue patients HD per his schedule. Continue current medications per chart and monitor electrolytes closely Keep all appointments - Time Spent with Patient Total time spent providing and/or coordinating discharge services: Greater than 30 minutes (60 minutes spent on chart review, patient encounter, collaboration of care with SW, medication reconciliation and prescriptions) - Constitutional Vitals: Temp Pulse Resp BP Pulse Ox 97.6 F 60 18 107/39 100 06/12/16 07:13 06/12/16 08:24 06/12/16 07:13 06/12/16 07:13 06/12/16 08:24 General appearance: Present: A&O X 3, pleasant, no acute distress - Head Head exam: Present: atraumatic, normocephalic - Eye Eye exam: Present: PERRL, conjuntiva pink, sclera anicteric Pupils: Present: PERRL - Neck Neck exam general surgery: Present: supple, trachea midline. Absent: lymphadenopathy - Respiratory Respiratory exam: Present: CTAB. Absent: accessory muscle use, rales, rhonchi, wheezes - Cardiovascular Cardiovascular exam: Present: RRR, +S1, +S2. Absent: diastolic murmur, gallop, rubs, systolic murmur Additional comments: R chest wall AICD - GI/Abdominal GI/Abdominal exam: Present: normal bowel sounds, soft, no peritoneal signs. Absent: distended, tenderness - Extremities Exam Extremities exam: Present: warm, radial pulses palpable and symetrical. Absent : calf tenderness, cyanotic, pedal edema Additional comments: L AVF thrill - Neurological Exam Neurological exam: Present: alert, CN II-XII intact, oriented X3, no focal deficits. Absent: pronater drift, facial droop, speech deficit - Skin Skin exam: Present: dry - VTE Documentation of Mechanical Device: Graduated compression elastic hosiery
[2016-06-12] MEDS: *HR* Amiodarone 200 MG TABLET PO SCH (09:49)
[2016-06-12] MEDS: Isosorbide MONOnitrate (24 HR) 30 MG TAB.ER.24H PO SCH (09:49)
[2016-06-12] MEDS: Metoprolol XL (24 HR) Succ 25 MG TAB.ER.24H PO SCH (09:49)
[2016-06-12] MEDS ORDERED: 0.9 % Sodium Chloride 250 ML IVC PRN (10:01)
--- NOTE | 2016-06-12 10:01 | Nephrology Progress Note ---
Date of Encounter: 06/12/16 Time of Encounter: 10:00 - Assessment and Plan (1) End-stage renal disease Current Visit: Yes Status: Chronic Patient will undergo dialysis today. His A. fib appears to be under good control. (2) NSTEMI (non-ST elevated myocardial infarction) Current Visit: No Status: Acute (3) CAD (coronary artery disease) Current Visit: Yes Status: Chronic Qualifiers: Coronary Disease-Associated Artery/Lesion type: [place] artery [place] vs. transplanted heart: [place] heart Associated angina: without angina Qualified Code(s): I25.10 - Atherosclerotic heart disease of [place] coronary artery without angina pectoris (4) PAF (paroxysmal atrial fibrillation) Current Visit: No Status: Chronic Subjective Principal diagnosis: A-Flutter, VT, CMP Interval history: Patient reports overall he is starting to feel better. However he does remain quite weak and debilitated. He is going to be going to a jail following hospital discharge. He is scheduled for his usual dialysis today. Heart rate remains controlled. Objective - Vital Signs Vital signs: Vital Signs Temp Pulse Resp BP Pulse Ox 06/12/16 09:39 60 18 134/88 100 06/12/16 08:24 60 100 06/12/16 07:13 97.6 F 59 18 107/39 100 06/12/16 03:23 97.5 F L 59 19 112/76 100 06/12/16 00:00 97.6 F 59 16 101/58 100 06/11/16 20:55 97.6 F 59 15 101/63 98 06/11/16 17:00 60 18 06/11/16 11:51 60 06/11/16 11:00 63 16 98/57 Intake and Output 06/11/16 06/12/16 06/12/16 23:59 07:59 15:59 Intake Total 0 / 0 Output Total 0 / 0 Balance 0 / 0 Intake: Oral 0 / 0 Output: Urine 0 / 0 Other: Stool Color Brown Yellow # Urine Diapers 1 # Bowel Movement Diapers 1 Weight 77.3 kg Blood Glucose* 111 123 Patient Weight 06/12/16 23:59 Weight 77.3 kg - General Appearance Exam: Patient is alert and oriented. He is in no acute distress. He appears chronically ill. Lungs sounds. Heart irregular rate and rhythm. Abdomen is benign. There is no lower extremity swelling. Is a functioning AV fistula in the left arm. - Lab 06/09/16 04:20 06/12/16 03:50 Most recent lab results Calcium 6.9 mg/dL (8.6-10.8) L 06/12/16 03:50 Phosphorus 3.1 mg/dL (2.3-4.7) 06/06/16 12:35 Magnesium 1.8 mg/dL (1.6-2.6) 06/11/16 04:25 - VTE Documentation of Mechanical Device: Graduated compression elastic hosiery Consult Discharge Plan - Plan Referrals: Dylon Medeiros DO [Primary Care Provider] - Mariangel Quintero DO [Resident] - 06/13/16 4:00 pm Jesus Mejias MD [Partnered Physician] - (Wound Check Appt 06/15/16 @ 0930 Device Check Appt 07/14/16 @ 0930)
--- NOTE | 2016-06-12 16:14 | Physician Discharge Referral ---
ExtendedCare Referral Info Transfer To: [facility] Provider in Charge: [place] Provider in Charge after Transfer: PCP Institutional Level of Care: Skilled - Diagnosis (1) Atrial flutter with rapid ventricular response Priority: Primary Status: Resolved (2) Ventricular tachycardia Priority: Primary Status: Resolved (3) Ischemic cardiomyopathy Priority: Secondary Status: Chronic (4) End-stage renal disease Priority: Secondary Status: Chronic (5) Hyperkalemia Priority: Primary Status: Resolved (6) Diabetes mellitus Priority: Secondary Status: Chronic (7) CHF (congestive heart failure) Priority: Secondary Status: Chronic (8) HTN (hypertension) Priority: Secondary Status: Chronic (9) Hyperlipidemia Priority: Secondary Status: Chronic (10) CAD (coronary artery disease) Priority: Secondary Status: Chronic (11) ESRD (end stage renal disease) on dialysis Priority: Secondary Status: Chronic (12) Elevated troponin Priority: Secondary Status: Chronic (13) Hypoglycemia Priority: Secondary Status: Resolved Prognosis: Fair Aware of Diagnosis: Patient Aware of Prognosis: Patient - Transfer Medications Prescriptions: Gabapentin [Neurontin] 300 mg PO HS #30 capsule HYDROcodone/Acet 5/325 mg [Aurora 5-325 mg] 1 tab PO Q4H PRN #15 tablet PRN Reason: Pain Home Medications: Allopurinol [Zyloprim] 100 mg PO DAILY 12/21/14 [History] Atorvastatin [Lipitor] 10 mg PO HS 12/21/14 [History] Cinacalcet [Sensipar] 60 mg PO DAILY 12/21/14 [History] Clopidogrel Bisulfate [Plavix] 75 mg PO DAILY 12/21/14 [History] Escitalopram [Lexapro] 10 mg PO DAILY 12/21/14 [History] Nitroglycerin 0.4 mg SL AD PRN 12/21/14 [History] Sevelamer [Renvela] 800 mg PO TIDWM 12/21/14 [History] TraZODone 100 mg PO HS 12/21/14 [History] Pantoprazole Sodium [Protonix] 40 mg PO DAILY #0 06/25/15 [Rx] Isosorbide MONOnitrate (24 HR) [Imdur] 30 mg PO DAILY #30 tab.er.24h 10/02/15 [ Rx] Acetaminophen [Tylenol] 650 mg PO Q6HR PRN #0 tablet 06/12/16 [Rx] Amiodarone [Cordarone] 200 mg PO BID tablet 06/12/16 [Rx] Aspirin 81 mg PO DAILY tab.chew 06/12/16 [Rx] Docusate [Colace] 100 mg PO BID PRN #0 capsule 06/12/16 [Rx] Gabapentin [Neurontin] 300 mg PO HS #30 capsule 06/12/16 [Rx] HYDROcodone/Acet 5/325 mg [Aurora 5-325 mg] 1 tab PO Q4H PRN #15 tablet 06/12/16 [Rx] Lisinopril [Zestril] 2.5 mg PO DAILY tablet 06/12/16 [Rx] Metoprolol XL (24 HR) Succ [Toprol Xl] 25 mg PO DAILY tab.er.24h 06/12/16 [Rx] Preparation H Ointment 1 appl TP TID PRN #0 tube 06/12/16 [Rx] Allergies/Adverse Reactions: Allergies No Known Allergies Allergy (Verified 06/05/16 10:14) - Respiratory Orders Oxygen / L per min (2L per minute prn, for O2 sat at least 92%.) Smoking Cessation: Smoking cessation has been advised. For more information, call the [place] Tobacco Quit Line at 8-508-DUUQ-NOW. - Lab Orders Lab Orders: Other (include drug levels w/frequency) (Monitor INR per schedule) - Advance Directives Living Will: Yes Code Status: Full Code - Mobility Orders Other (As per physical therapy) - Rehabiliation Orders Rehab Potential: Good Rehab Orders: Evaluation for Physical Therapy - Diet Orders Renal, Cardiac CERTIFICATION: I certify that the transfer of the above named patient to an Extended Care Facility is necessary for the continuing treatment of the diagnosis listed. The above information is true and accurate reflection of patient's current condition. Confidential - Redisclosure prohibited without a patient's written consent.
[2016-06-12] MEDS ORDERED: *HR* Promethazine 25 MG/ML VIAL IVP ONE (16:21)
[2016-06-12 20:01] VITALS: BP 110/92
== END 2016-06-12 20:15 | DRG 224 ==
LOC: EMEROO 10:13 → 2ANU 10:13 → 2NNU 14:36 → SUATTDRO 17:32
PROVIDERS: ADMIT Hospitalist; ATTEND Internal Medicine